=== PATIENT | female | born 1985 | race Caucasian/White ===

== ENCOUNTER 2019-12-25 02:58 | Inpatient (IN) | payer OTHER, SELFPAY ==
[2019-12-25] VITALS (157 sets, daily range): BP systolic 60–165; BP diastolic 37–143; PULSE 36–262; RESP 16–18; TEMP 36.3–37.6; O2SAT 94–100; BMI 40.3
[2019-12-25] MEDS: LACTATED RINGERS 1,000 ML 125 ML IV CONT ×3 (04:07→12:23)
[2019-12-25] MEDS: AMPICILLIN 2 GM/NS 100 ML 2 GM/100 ML BAG IVPB (04:08)
[2019-12-25] MEDS: OXYTOCIN 30 UNITS/NS 500 ML 30 UNITS/500 ML BAG IV CONT (04:12)
[2019-12-25 04:17] LABS: Basophils Percent Auto 0.3 % (0.2-1.2); Eosinophils Absolute Auto 0.1 K/mm3 (0-0.3); Hematocrit 34.1 % (37.0-47.0); Hemoglobin 11.6 g/dL (12.0-15.0); Immature Granulocyte Absolute 0.18 K/mm3 (0.00-0.031); Immature Granulocyte Percent A 1.6 % (0-0.5); Lymphocytes Absolute Auto 2.85 K/mm3 (0.9-3.2); Lymphocytes Percent Auto 24.6 % (18.3-44.2); Mean Corpuscular Hemoglobin 30.1 pg (26-34); Mean Corpuscular Volume 88.3 fl (80-100); Mean Platelet Volume 10.1 fl (7.4-10.4); Monocytes Absolute Auto 0.8 K/mm3 (0.1-0.6); Monocytes Percent Auto 6.6 % (2.6-8.5); Neutrophils Absolute Auto 7.7 K/mm3 (1.3-6.7); Neutrophils Percent Auto 65.9 % (45.5-73.1); Platelet Count Result 288 k/mm3 (150-375); Red Blood Count 3.86 M/mm3 (4.2-5.4); Red Cell Distribution Width 13.8 % (11.5-14.5); White Blood Count 11.6 K/mm3 (4.5-10.0)
[2019-12-25 04:27] LABS: Alanine Aminotransferase 13 U/L (4-35); Albumin Level 3.3 g/dL (3.5-5.1); Alkaline Phosphatase 130 U/L (38-126); Anion Gap 5 mmol/L (8-16); Aspartate Amino Transferase 19 U/L (14-36); Bilirubin,Total < 0.1 mg/dL (0.2-1.3); Blood Urea Nitrogen 7 mg/dL (7-17); Carbon Dioxide 22 mmol/L (22-30); Chloride 107 mmol/L (98-107); Estimated Glomerular Filt Rate > 60; Glucose 89 mg/dL (65-105); Potassium 4.2 mmol/L (3.4-5.0); Sodium 134 mmol/L (137-145)
[2019-12-25 05:13] LABS: Rubella IgG Antibody 35.3 IU/ML
[2019-12-25 05:14] LABS: HIV 1/2 Ab P24 Ag Result Negative (Negative)
[2019-12-25 05:16] LABS: Hepatitis B Surface Antigen Negative (Negative)
--- NOTE | 2019-12-25 05:59 | LDADM ---
This patient, Siri Nix, was admitted to Labor/Delivery/Recovery 104 on 12/25/19 at 03:21. Plans for labor, pain management and were discussed with patient. Patient/family oriented to hospital policies and general routines including ID bracelet, bed and alarms, visiting hours, pain management, procedures, bathroom and other care routines, personal items, smoking policy, room service/diet and guest tray routines, infant security routines, and visiting hours. Patient/Family are encouraged to report perceived risks to care and to ask questions if they do not understand what they are told or what they should do. See OBIX for further documentation.
--- NOTE | 2019-12-25 06:40 | WPDANESEPP ---
Anes - Eval Pre Procedure Procedure: Labor epidural Date/Time: 12/25/19 06:40 Surgeon: Riki Preop Diagnosis: Pain during labor Pre Op Diagnosis: Leaking, Bleeding Patient Data Age: 34 Gender: F Height: 1.57 m Weight: 100 kg Last Vital Signs Pulse 94 12/25/19 06:32 BP 117/90 12/25/19 06:32 Allergies Allergy/AdvReac Type Severity Reaction Status Date / Time Sulfa (Sulfonamide Allergy Unknown Verified 06/07/15 12:29 Antibiotics) Laboratory Tests 12/25/19 12/25/19 12/25/19 04:02 04:02 04:02 WBC 11.6 K/mm3 H K/mm3 (4.5-10.0) RBC 3.86 M/mm3 L M/mm3 (4.2-5.4) Hgb 11.6 g/dL L g/dL (12.0-15.0) Hct 34.1 % L % (37.0-47.0) MCV 88.3 fl fl (80-100) MCH 30.1 pg pg (26-34) MCHC 34.0 g/dl g/dl (32-36) RDW 13.8 % % (11.5-14.5) Plt Count 288 k/mm3 k/mm3 (150-375) MPV 10.1 fl fl (7.4-10.4) Immature Gran % (Auto) 1.6 % H % (0-0.5) Neut % (Auto) 65.9 % % (45.5-73.1) Lymph % (Auto) 24.6 % % (18.3-44.2) Pender % (Auto) 6.6 % % (2.6-8.5) Eos % (Auto) 1.0 % % (0-4.4) Baso % (Auto) 0.3 % % (0.2-1.2) Lymph # (Auto) 2.85 K/mm3 K/mm3 (0.9-3.2) Pender # (Auto) 0.8 K/mm3 H K/mm3 (0.1-0.6) Eos # (Auto) 0.1 K/mm3 K/mm3 (0-0.3) Baso # (Auto) 0.0 K/mm3 K/mm3 (0.0-0.1) Abs Immat Gran (auto) 0.18 K/mm3 H K/mm3 (0.00-0.031) Absolute Neuts (auto) 7.7 K/mm3 H K/mm3 (1.3-6.7) Absolute Nucleated RBC 0.0 K/mm3 K/mm3 (0.0-0.012) Nucleated RBC % 0.0 % % (0.0-0.2) Sodium Potassium Chloride Carbon Dioxide Anion Gap BUN Creatinine Estim Creat Clear Calc Estimated GFR Glucose Calcium Total Bilirubin AST ALT Alkaline Phosphatase Total Protein Albumin RPR Pending Hep Bs Antigen HIV 1&2 Ab/P24 Ag 4thGn Negative (Negative) Rubella IgG Antibody Blood Type Antibody Screen 12/25/19 12/25/19 12/25/19 04:02 04:02 04:02 WBC RBC Hgb Hct MCV MCH MCHC RDW Plt Count MPV Immature Gran % (Auto) Neut % (Auto) Lymph % (Auto) [place] % (Auto) Eos % (Auto) Baso % (Auto) Lymph # (Auto) [place] # (Auto) Eos # (Auto) Baso # (Auto) Abs Immat Gran (auto) Absolute Neuts (auto) Absolute Nucleated RBC Nucleated RBC % Sodium 134 mmol/L L mmol/L (137-145) Potassium 4.2 mmol/L mmol/L (3.4-5.0) Chloride 107 mmol/L mmol/L (98-107) Carbon Dioxide 22 mmol/L mmol/L (22-30) Anion Gap 5 mmol/L L mmol/L (8-16) BUN 7 mg/dL mg/dL (7-17) Creatinine 0.50 mg/dL L mg/dL (0.7-1.0) Estim Creat Clear Calc Not Reportable Estimated GFR > 60 (59 - ) Glucose 89 mg/dL mg/dL (65-105) Calcium 9.0 mg/dL mg/dL (8.4-10.2) Total Bilirubin < 0.1 mg/dL L mg/dL (0.2-1.3) AST 19 U/L U/L (14-36) ALT 13 U/L U/L (4-35) Alkaline Phosphatase 130 U/L H U/L (38-126) Total Protein 6.0 g/dL L g/dL (6.3-8.2) Albumin 3.3 g/dL L g/dL (3.5-5.1) RPR Hep Bs Antigen HIV 1&2 Ab/P24 Ag 4thGn Rubella IgG Antibody 35.3 IU/ML IU/ML (10 - ) Blood Type O Positive Antibody Screen Negative 12/25/19 04:02
[2019-12-25] MEDS: fentaNYL CITRATE INJ (*CRX) 100 MCG/2 ML VIAL 50 MCG IV PUSH (07:13)
--- NOTE | 2019-12-25 07:34 | PM.OBPNVD ---
OB - PN: Subj Subjective Date/time seen: 12/25/19 07:34 Sciatica bothering her. US done- vertex. s/p BMTZ. COntinue PCN and Pitocin. OB - PN: Obj Data Labs CBC & Chem 7: 12/25/19 04:02 12/25/19 04:02 Labs: Laboratory Results - last 24 hr 12/25/19 12/25/19 12/25/19 04:02 04:02 04:02 WBC 11.6 H RBC 3.86 L Hgb 11.6 L Hct 34.1 L MCV 88.3 MCH 30.1 MCHC 34.0 RDW 13.8 Plt Count 288 MPV 10.1 Immature Gran % (Auto) 1.6 H Neut % (Auto) 65.9 Lymph % (Auto) 24.6 [place] % (Auto) 6.6 Eos % (Auto) 1.0 Baso % (Auto) 0.3 Lymph # (Auto) 2.85 [place] # (Auto) 0.8 H Eos # (Auto) 0.1 Baso # (Auto) 0.0 Abs Immat Gran (auto) 0.18 H Absolute Neuts (auto) 7.7 H Absolute Nucleated RBC 0.0 Nucleated RBC % 0.0 Sodium Potassium Chloride Carbon Dioxide Anion Gap BUN Creatinine Estim Creat Clear Calc Estimated GFR Glucose Calcium Total Bilirubin AST ALT Alkaline Phosphatase Total Protein Albumin Hep Bs Antigen HIV 1&2 Ab/P24 Ag 4thGn Negative Rubella IgG Antibody 35.3 Blood Type Antibody Screen 12/25/19 12/25/19 12/25/19 04:02 04:02 04:02 WBC RBC Hgb Hct MCV MCH MCHC RDW Plt Count MPV Immature Gran % (Auto) Neut % (Auto) Lymph % (Auto) [place] % (Auto) Eos % (Auto) Baso % (Auto) Lymph # (Auto) [place] # (Auto) Eos # (Auto) Baso # (Auto) Abs Immat Gran (auto) Absolute Neuts (auto) Absolute Nucleated RBC Nucleated RBC % Sodium 134 L Potassium 4.2 Chloride 107 Carbon Dioxide 22 Anion Gap 5 L BUN 7 Creatinine 0.50 L Estim Creat Clear Calc Not Reportable Estimated GFR > 60 Glucose 89 Calcium 9.0 Total Bilirubin < 0.1 L AST 19 ALT 13 Alkaline Phosphatase 130 H Total Protein 6.0 L Albumin 3.3 L Hep Bs Antigen Negative HIV 1&2 Ab/P24 Ag 4thGn Rubella IgG Antibody Blood Type O Positive Antibody Screen Negative
[2019-12-25] MEDS: AMPICILLIN 1 GM/NS 50 ML 1 GM/50 ML BAG IVPB ×2 (08:24→12:19)
[2019-12-25] MEDS: PHENYLEPHRINE 1,000 MCG/10 ML SYRINGE 100 MCG IV PUSH ×3 (08:31→09:46)
[2019-12-25] MEDS: BETAMETHASONE SOD PHOS/ACETATE 30 MG/5 ML VIAL 12 MG IM (08:57)
[2019-12-25 12:29] LABS: Rapid Plasma Reagin Non-Reactive (NonReactive)
--- NOTE | 2019-12-25 16:05 | PM.OBPRVD ---
OB - Delivery Note Procedure Delivery date: 12/25/19 events: Labor < 37 Weeks Intrapartal events: None Delivery augmentation: pitocin Delivery monitor: external FHT and external uterine Route of delivery: Episiotomy description: None Laceration Description: Perineal - 1st Degree Delivery repair: vicryl Estimated blood loss (mL): 134 Anesthesia type: Epidural Baby Date of : 12/25/19 Time of : 15:38 Weeks of gestation at delivery: 35 Weight (pounds): 5 Weight (ounces): 13 position: Right Occiput Posterior Placenta delivery description: Spontaneous cord vessel description: Delayed Cord Clamping Narrative: Delivery per Z. Due SNM. Unable to collect arterial. Venous gas collected and handed off to staff.
[2019-12-25] MEDS: OXYTOCIN 30 UNITS/NS 500 ML 30 UNITS/500 ML BAG 125 UNITS IV CONT (16:16)
[2019-12-25] MEDS: POLYSACCHARIDE IRON COMPLEX 150 MG CAPSULE PO (17:46)
[2019-12-25] MEDS: BENZOCAINE 20% AER SPR (*SP) 56 GM CAN 1 SPRAY TOPICAL (18:23)
[2019-12-25] MEDS: WITCH HAZEL 40 PADS 1 PAD TOPICAL (18:23)
[2019-12-25] MEDS: IBUPROFEN 600 MG TABLET PO (18:23)
[2019-12-26] MEDS: IBUPROFEN 600 MG TABLET PO ×3 (02:50→19:10)
[2019-12-26 05:15] LABS: Hemoglobin 10.5 g/dL (12.0-15.0)
[2019-12-26 08:15] VITALS: BP 114/73; PULSE 73; RESP 18; TEMP 37.1; O2SAT 100
--- NOTE | 2019-12-26 09:17 | PM.OBPNVD ---
OB - PN: Subj Subjective Date/time seen: 12/26/19 09:17 Interval history: Doing very well. going well. Normal lochia, minimal pain. Patient comments: no complaints [place] baby status: doing well and nursing well [place] feeding status: exclusively breast feeding OB - PN: Obj Data Labs CBC & Chem 7: 12/26/19 03:59 12/25/19 04:02 Labs: Laboratory Results - last 24 hr 12/25/19 12/26/19 04:02 03:59 Hgb 10.5 L Hct 31.0 L RPR Non-reactive OB - PN A/P Plan day: 1 Plan: routine care Comments: Circ done after consented. Home tomorrow. Routine pp care. Time Spent With Patient Time: Total time spent is greater than 50% in coordination of care (as documented) at patient's floor/unit and/or counseling patient: Exam Narrative: Exam Narrative: NAD abdomen soft, nontender, fundus firm below the umbilicus Extremities nontender, 1+ edema
[2019-12-26] MEDS: MULTIVIT/MIN/PREN/FOL AC/IRON TABLET 1 TAB PO (09:37)
[2019-12-26] MEDS: DOCUSATE SODIUM 100 MG CAPSULE PO (09:39)
--- NOTE | 2019-12-26 13:15 | PC.NURSE ---
Consulted with patient, mother states she is using a nipple shield for all feedings. Mother has pumped and supplemented after all attempts. Discussed and the 35 2/7 week , establishing may have its own unique set of circumstances due to their immaturity. infants may be less alert, have less stamina and may have issues with latch, suck and swallow. With the possible inability to have a vigorous suck swallow, infants may not be adequately stimulating mother and/or able to have adequate milk transfer. Pumping should be considered for additional stimulation and to offer EBM as part of supplement if needed. Discussed nipple shield precautions and possible complications. Instructions given on application and cleaning of shield. Patient able to return demonstration on proper application of shield. Discussed the need to initiate pumping if infant continues to nurse with the shield. Patient verbalizes understanding. Reviewed feeding cues, frequencies, duration of feedings, feeding elimination flow sheet, and signs of adequate intake. Demonstrated stimulation techniques to wake infant for feeding. Assisted with infant to breast. Reviewed positioning/alignment in cross cradle, holding breast in U hold and guided asymmetrical latch on. Infant was able to latch correctly using shield. nursed weakly in short chewy bursts followed with long pausing. Reviewed signs of a correct latch, effective nursing and suck swallow ratio. Infant was able to maintain latch without discomfort to mother. Nipple care reviewed. Advised to attempt for 5-10 minutes then supplement 15mls EBM/formula and pump. Discussed not tiring infant out before bottle feeding. Instructed mother to call out for RN assistance if she is unable to latch for feeding or she has discomfort with nursing. Instructed feeding should be initiated three hours from start of last feeding or if feeding cues are noted before. Mother voiced understanding of information shared.
--- NOTE | 2019-12-26 13:45 | PC.NURSE ---
Assisted with pumping. Instructions given on breast pump care and usage, pumping schedule, nipple care, and collection and storage of breast milk. Encouraged [id number], breast massage and manual expression to stimulate supply. Assessed patient for correct flange size, placement and draw. Patient verbalizes and demonstrates understanding of instructions.
--- NOTE | 2019-12-26 13:48 | WPDANLDPN2 ---
Anes-Prog Note L&D Date/Time: 12/26/19 13:48 Comfortable throughout: labor and delivery Neuraxial method: epidural Epidural/Spinal procedure site: clean & non-tender Neuro status: Neuro function grossly intact. Cardiovascular status: normal Respiratory status: normal Airway patency: baseline Mental status: baseline Post-Op hydration status: normal Vital Signs: Last Vital Signs Temp 37.1 C 12/26/19 08:15 Pulse 73 12/26/19 08:15 Resp 18 12/26/19 08:15 BP 114/73 12/26/19 08:15 Pulse Ox 100 12/26/19 08:15 Pain score (VAS): 02/17 I/O: Intake & Output 12/25/19 12/26/19 12/26/19 23:59 07:59 15:59 Intake Total 600 Output Total 689 Balance -89 Post-procedural complaints: none Patient feedback: Patient satisfied with anesthetic care.
[2019-12-26 20:00] VITALS: BP 106/71; PULSE 85; RESP 18; TEMP 36.5; O2SAT 98
[2019-12-26] MEDS: ACETAMINOPHEN 325 MG TABLET 650 MG PO (22:59)
[2019-12-27] MEDS: IBUPROFEN 600 MG TABLET PO (05:46)
--- NOTE | 2019-12-27 07:30 | PC.NURSE ---
PT introductions made and plan of care discussed per post , pain management, breast feeding, supplementing and pumping, daily care activities and pending discharge to home. PT verbalized understanding of such care.
--- NOTE | 2019-12-27 08:18 | P.DS_ITS ---
DS: Admitting Diagnosis Admitting Diagnosis Admitting Diagnosis: Leaking, Bleeding DS: Discharge Diagnosis Discharge Diagnosis (1) Vaginal delivery: Code(s): O80 - Encounter for full-term uncomplicated delivery Status: Acute OB - DS: Summary OB Procedures : None OB Procedures Intrapartum: Spontaneous Vag Delivery OB Procedures: : None Time Spent with Patient Time attestation: Total time spent providing and/or coordinating discharge services: DS: Data Data Completed and Pending Pending studies at discharge: Pending at discharge 12/25/19 16:28 Surgical [PTH] Routine Discharge Plan Discharge Discharging Clinician: Shanti Rivera Patient Disposition: Home, Self-Care Activity: pelvic rest Diet: as tolerated Patient Instructions: Antibiotic Form, How to Stop Smoking (DC) Stand Alone Forms: General Discharge Information Follow-up/Referrals: Shanti Rivera CNM [Certified Nurse Record Label Intern] - Date of admission: 12/25/19 03:21 Primary Care Provider: Alex Vaca Admitting Provider: Sal[place] Lyn Attending physician on admission: [place] Lyn Condition: Stable
--- NOTE | 2019-12-27 08:18 | PM.OBPNVD ---
OB - PN: Subj Subjective Date/time seen: 12/27/19 08:18 Interval history: Doing very well. going well. Normal lochia, minimal pain. Patient comments: no complaints [place] baby status: doing well OB - PN: Obj Data Labs CBC & Chem 7: 12/26/19 03:59 12/25/19 04:02 OB - PN A/P Plan day: 2 Plan: routine care and discharge home (F/U in 4 weeks) Time Spent With Patient Time: Total time spent is greater than 50% in coordination of care (as documented) at patient's floor/unit and/or counseling patient: Time with patient: less than 15 minutes Review of Systems Review of Systems: All systems reviewed & are unremarkable except as noted in HPI and below Exam Narrative: Exam Narrative: Fundus firm and vaginal flow controlled. No lower ext redness, warmth, or edema. Negative homans. Const: General: comfortable Chest: Breast/axilla inspection: normal inspection of the breasts Resp: Effort & Inspection: normal respiratory effort Cardio: Rate: regular rate GI: GI Palp: Yes Soft to palpation Psych: Appearance: grossly normal Affect: normal affect Attitude: cooperative Thought content: Yes Normal thought content present Judgement: Good judgement present (Psych)
[2019-12-27 09:00] VITALS: BP 115/66; PULSE 80; RESP 16; TEMP 37.6; O2SAT 98
--- NOTE | 2019-12-27 09:15 | PC.NURSE ---
Mother continues to attempt to breast most feedings using the nipple shield before supplementing and pumping. Infant is more awake and making eager attempts with latching with good bursts of rhythmic suckling. Mother is feeding as required and waking to feed if needed. is currently meeting outcomes for weight, output, jaundice and feeding frequencies. Mother is pumping without difficulties or discomfort and has a double electric pump for home use. Mother states she feels confident to continue current feeding plan at home. Reviewed transition to breast milk, signs of adequate intake, and engorgement/relief. Discussed when to increase supplementation and signs when may be ready to decrease supplementation. Advised not to discontinue supplement until feeding can be observed by ICP or LC. Instructed to call ICP if intake/output less than required. Reviewed regular medications mother is taking. Information provided per Aliya. Reviewed community resources on the [facility] website and in the Mom/Baby guide. Information on outpatient services provided. Mother has no further questions at this time.
--- NOTE | 2019-12-27 10:03 | WPDANLDPN2 ---
Anes-Prog Note L&D Date/Time: 12/27/19 10:03 Comfortable throughout: labor and delivery Neuraxial method: epidural Epidural/Spinal procedure site: clean & non-tender Neuro status: Neuro function grossly intact. Cardiovascular status: normal Respiratory status: normal Airway patency: baseline Mental status: baseline Post-Op hydration status: normal Vital Signs: Last Vital Signs Temp 37.6 C H 12/27/19 09:00 Pulse 80 12/27/19 09:00 Resp 16 12/27/19 09:00 BP 115/66 12/27/19 09:00 Pulse Ox 98 12/27/19 09:00 Pain score (VAS): 0 Post-procedural complaints: none Patient feedback: Patient satisfied with anesthetic care.
[2019-12-27 10:25] VITALS: PULSE 80; RESP 16; O2SAT 98
[2019-12-27] MEDS: DOCUSATE SODIUM 100 MG CAPSULE PO (10:25)
[2019-12-27] MEDS: MULTIVIT/MIN/PREN/FOL AC/IRON TABLET 1 TAB PO (10:25)
[2019-12-27] MEDS: ACETAMINOPHEN 325 MG TABLET 650 MG PO (10:25)
[2019-12-27] MEDS: TETANUS,DIPHTHERIA,AC PERTUSSIS ADULT (0.5 ML) BOOSTRIX IM (10:28)
--- NOTE | 2019-12-27 12:30 | PC.NURSE ---
Patient viewed the discharge video Mother & Baby Care, The First Two Weeks . Patient was given the opportunity and encouraged to ask questions. Patient verbalized understanding of information shared and has been given the mother/baby guide for home reference.
--- NOTE | 2019-12-27 13:30 | PC.NURSE ---
PT received discharge instructions per protocol and verbalized understanding of such care.
--- NOTE | 2019-12-27 14:52 | PC.NURSE ---
Addendum entered by Janak Ornelas RN 12/27/19 14:53: actual time of discharge was 1403 Original Note: PT discharged to home via wheelchair accompanied by mother and and taken to waiting car. follow up appointments confirmed.
[2019-12-29 11:06] VITALS: BP 129/83; PULSE 72; RESP 20; TEMP 36.8; O2SAT 100
== END 2019-12-27 14:03 | disposition home or self-care (01) | DRG 807 ==
LOC: ANHOBPP 03:03 → ANHLDR 03:21 → ANHOB2 12-27 08:19 → ANHLDR 12-28 17:13 → ANHOB2 12-28 17:13
PROVIDERS: Advanced Practice Midwife; Admitting Provider Obstetrics & Gynecology; PCP Family Medicine; Visit Provider Obstetrics & Gynecology
DX: O60.14X0 Preterm labor third trimester with preterm delivery third trimester, not applicable or unspecified (principal); Z37.0 Single live birth; O99.824 Streptococcus B carrier state complicating childbirth; O42.913 Preterm premature rupture of membranes, unspecified as to length of time between rupture and onset of labor, third trimester; O76 Abnormality in fetal heart rate and rhythm complicating labor and delivery; O70.0 First degree perineal laceration during delivery; Z3A.35 35 weeks gestation of pregnancy; M54.30 Sciatica, unspecified side; Z23 Encounter for immunization
CPT/HCPCS: 36415; 80053; 85014; 85018; 85025; 86592; 86703; 86762; 86850; 86900; 86901; 87340; 88307; 90715; A9270; G0432; J0290; J0702; J2370; J2590; J2795; J3010; J7120

== ENCOUNTER 2019-12-28 09:31 | Outpatient (CLI) | payer OTHER, SELFPAY | END 2019-12-28 09:32 | disposition home or self-care (01) | PROVIDERS: PCP Family Medicine; Visit Provider Obstetrics & Gynecology | DX: Z23 Encounter for immunization (principal) | CPT/HCPCS: 90471; 90653; G0008 ==

== ENCOUNTER 2022-02-07 21:38 | Observation (INO) | payer OTHER, SELFPAY ==
--- NOTE | ~2022-02-07 | US_ITS ---
EXAMINATION: US OB <=14 wk fetus w TV DATE: 02/07/2022 23:07 INDICATION: Left lower quadrant abdominal pain. TECHNIQUE: Real-time transabdominal and transvaginal pelvic ultrasound was performed. COMPARISON: None. FINDINGS: TRANSABDOMINAL ULTRASOUND: The uterus measures 9.8 x 7.0 x 6.3 cm. TRANSVAGINAL ULTRASOUND: There is an intrauterine gestational sac. A yolk sac is identified. The fet al crown rump length measures 1.7 cm, which correlates with an estimated gestational age of 8 weeks a nd 1 day(s) (+/-) 5 day(s). heart motion is identified measuring 173 beats per minute (bpm) by M-mode Doppler. The cervical length is normal on transvaginal images. The right ovary measures 3.3 x 3.7 x 2.1 cm. The left ovary is not visualized. There is physiologic free fluid in the pelvis. IMPRESSION: 1. Single living intrauterine gestation with estimated date of delivery of 09/18/2022. Reviewed, dictated and finalized at location A. EY WORKER IMPRESSION: 1. Single living intrauterine gestation with estimated date of delivery of 09/08.
[2022-02-07 21:46] VITALS: BP 130/87; PULSE 105; RESP 18; TEMP 36.6; O2SAT 100
--- NOTE | 2022-02-07 21:57 | ED.ABDPAIN ---
HPI - Abdominal Pain General Chief Complaint: Abdominal Pain Stated Complaint: abdominal pain left lower for 24 hours Time Seen by Provider: 02/07/22 21:54 Source: RN notes reviewed History of Present Illness HPI narrative: Patient presents emergency room from home for abdominal pain. Patient states pain began approximately 24 hours ago the pain is located left lower quadrant does not radiate states the pain is described as sharp and stabbing is progressively worsened over the past 24 hours. States that movement makes the pain worse and sitting still improves the pain states she is approximately 8 weeks has had a home test but is not been seen by [facility] she is followed by [facility]. Patient is she denies any vaginal bleeding or discharge states she did try taking 1 ibuprofen at home with minimal relief she has not taken any Tylenol Related Data Allergies Allergy/AdvReac Type Severity Reaction Status Date / Time Sulfa (Sulfonamide Allergy Unknown Unknown Verified 02/07/22 21:51 Antibiotics) Review of Systems Review of Systems: Gen.: Denies fevers or chills ENT: Denies congestion Respiratory: Denies shortness of breath or cough CV: Denies chest pain or palpitations GI: Reports left lower quadrant abdominal pain, denies nausea, emesis or diarrhea reports Musculoskeletal: Denies back pain or muscle pain Neuro: Denies numbness, tingling, weakness or focal weakness Skin: Denies rash Except as documented, all other systems reviewed and negative [facility] Past Medical History Medical History IUP (intrauterine ), incidental Morbid obesity with BMI of 40.0-44.9, adult Family History Family History (Updated 10/05/13 @ 07:13 by DOCTOR UNKNOWN) Grandparent Carcinoma of colon Social History Social History Smoking packs per day: 0.5 Smoking cigarettes per day: 10.0 Years smoked: 16 Smoking pack-years: 8.00 Smoking status: Current every day smoker Tobacco type: cigarettes Second hand tobacco smoke exposure: No Alcohol intake: current Substance use: never Gender identity (if verbalized by the patient): Female Sexual Orientation (if Verbalized by the Patient): Straight or Heterosexual Spiritual care concerns: No Exam Narrative: APPEARANCE: No acute distress, nontoxic, resting in bed HEENT: Normocephalic, atraumatic, OMM RESPIRATORY: No respiratory distress, clear to auscultation bilaterally with no rhonchi wheezing or rales CARDIOVASCULAR: RRR s murmur ABDOMINAL: Soft nondistended, tender to palpation left lower quadrant with point tenderness and percussion tenderness of the left lower quadrant, no tenderness in the right lower quadrant, left upper quadrant and right upper quadrant : Normal external exam small amount of white discharge in cervical canal cervix is closed no vaginal bleeding no adnexal tenderness no cervical motion tenderness MUSCULOSKELETAl: Moves all extremities. No clubbing, cyanosis or edema. NEURO: Awake and alert. Following commands, speech normal, no focal deficits SKIN:: Warm, dry. Normal Color PSYCHIATRIC: Normal affect/mood Course Course Emergency Course: Reviewed old records patient is O+ blood Patient continues have tenderness in the left lower quadrant Called and discussed with Dr. Lyn presentation work-up agrees with admission at this time agrees with plan for Rocephin serial exams Discussed with patient and family results of workup and diagnosis. Discussed need for admission. Patient and family understand and agree to current treatment plan Vital Signs Vital signs: Vital Signs Temperature 97.9 F 02/07/22 21:46 Pulse Rate 105 H 02/07/22 21:46 Respiratory Rate 18 02/07/22 21:46 Blood Pressure 130/87 02/07/22 21:46 Pulse Oximetry 100 02/07/22 21:46 Oxygen Delivery Room Air 02/07
[2022-02-07 22:11] LABS: Basophils Percent Auto 0.2 % (0.2-1.2); Eosinophils Absolute Auto 0.1 K/mm3 (0-0.3); Hematocrit 38.5 % (37.0-47.0); Hemoglobin 13.2 g/dL (12.0-15.0); Immature Granulocyte Absolute 0.06 K/mm3 (0.00-0.031); Immature Granulocyte Percent A 0.4 % (0-0.5); Lymphocytes Absolute Auto 2.43 K/mm3 (0.9-3.2); Lymphocytes Percent Auto 17.8 % (18.3-44.2); Mean Corpuscular HGB Conc 34.3 g/dl (32-36); Mean Corpuscular Hemoglobin 32.3 pg (26-34); Mean Corpuscular Volume 94.1 fl (80-100); Mean Platelet Volume 10.3 fl (7.4-10.4); Monocytes Absolute Auto 0.9 K/mm3 (0.1-0.6); Monocytes Percent Auto 6.9 % (2.6-8.5); Neutrophils Absolute Auto 10.1 K/mm3 (1.3-6.7); Neutrophils Percent Auto 73.7 % (45.5-73.1); Platelet Count Result 302 k/mm3 (150-375); Red Blood Count 4.09 M/mm3 (4.2-5.4); Red Cell Distribution Width 12.4 % (11.5-14.5); White Blood Count 13.7 K/mm3 (4.5-10.0)
[2022-02-07] MEDS: SODIUM CHLORIDE 0.9% IV 1,000 ML 999 ML IV CONT (22:16)
[2022-02-07 22:23] LABS: Alanine Aminotransferase 21 U/L (6-35); Albumin Level 4.2 g/dL (3.5-5.1); Alkaline Phosphatase 86 U/L (38-126); Anion Gap 7 mmol/L (8-16); Aspartate Amino Transferase 23 U/L (14-36); Bilirubin,Total 0.2 mg/dL (0.2-1.3); Blood Urea Nitrogen 9 mg/dL (7-17); Calcium 8.8 mg/dL (8.4-10.2); Carbon Dioxide 20 mmol/L (22-30); Chloride 104 mmol/L (98-107); Estimated CRCL calculation 118 ml/min; Estimated Glomerular Filt Rate > 60; Glucose 92 mg/dL (65-110); Lipase 52 U/L (23-300); Potassium 3.8 mmol/L (3.4-5.0); Sodium 131 mmol/L (137-145)
[2022-02-07 22:24] LABS: Add Urine Microscopic? YES; Appearance Urine Slightly Cloudy (Clear); Bilirubin Urine Negative (Negative); Blood Urine Negative (Negative); Color Urine Yellow (Yellow); Glucose Urine UA Negative (Negative); Ketones Urine Negative (Negative); Leukocyte Esterase Ur Trace LEU/UL (Negative); Nitrate Urine Negative (Negative); Protein Urine Negative (Negative); Urobilinogen Urine 0.2 mg/dL (<2.0)
[2022-02-07 22:27] LABS: Bacteria Urine Trace /hpf; Mucus Urine Rare /lpf; RBC Urine 0-2 /hpf (0-2); Squamous Epithelial Cell Urine Few /hpf (Few); WBC Urine 16-20 /hpf
[2022-02-08 02:11] VITALS: BMI 35.7
--- NOTE | 2022-02-08 02:48 | ADMGEN ---
This patient, Siri Nix, was admitted to Medical Room 252-. Patient/family oriented to hospital policies and general routines including ID bracelet, bed and alarms, visiting hours, pain management, procedures, bathroom and other care routines, personal items, smoking policy, room service/diet, and visiting hours. Information on how to activate the Rapid Response Team has been discussed. Patient/Family are encouraged to report perceived risks to care and to ask questions if they do not understand what they are told or what they should do.
[2022-02-08 02:53] LABS: Influenza A QL RT-PCR Negative (Negative); Influenza B QL RT-PCR Negative (Negative); SARS-CoV-2 RNA PCR Negative
[2022-02-08] MEDS: SODIUM CHLORIDE 0.9% IV 1,000 ML 100 ML IV CONT (03:20)
[2022-02-08] MEDS: ACETAMINOPHEN 325 MG TABLET 650 MG PO ×2 (03:52→09:56)
[2022-02-08 05:00] VITALS: BP 136/83; PULSE 74; RESP 20; TEMP 36.3; O2SAT 99
[2022-02-08 05:59] LABS: Lactic Acid Reflex 0.7 mmol/L (0.7-2.0)
--- NOTE | 2022-02-08 11:55 | PM.IMHP ---
H&P: HPI History of Present Illness Date/Time: 02/08/22 11:55 Chief Complaint: Abdominal pain Narrative: this patient is a 36-year-old multiparous female at 8 weeks gestation who presented emergency department for left lower quadrant pain. She has elevated white count. There was some nausea. Evaluation in the ultrasound included a pelvic ultrasound. The left ovary could not be visualized. patient was admitted for observation. After several hours of observation she felt better. Her pain is primarily with movement and a rotational movement mostly. A rotational movement of her abdomen is the most painful periods likely muscular. There was concern about appendicitis. She had some soft signs of infection. She had the urinary tract infection that has been treated with IV antibiotics. Will continue to treat the infection with Oral antibiotics. to discharge To home Review of Systems Review of Systems: All systems reviewed & are unremarkable except as noted in HPI and below Constitutional: Constitutional: Denies chills, Denies fatigue, Denies fever(s) and Denies weakness Eyes: Eyes: Denies blurry vision, Denies change in vision, Denies loss of peripheral vision, Denies loss of vision, Denies other visual disturbances and Denies eye pain ENT: Denies vertigo, Denies dizziness, Denies hearing loss, Denies mouth pain, Denies nasal obstruction, Denies neck mass and Denies neck pain Cardiovascular: Cardiovascular: Denies chest pain, Denies diaphoresis, Denies syncope, Denies leg edema and Denies dyspnea Respiratory: Respiratory: Denies chest congestion, Denies cough, Denies hemoptysis, Denies dyspnea and Denies wheezing Gastrointestinal: Gastrointestinal: Denies abdominal pain, Denies constipation, Denies diarrhea, Denies nausea and Denies vomiting Genitourinary: Genitourinary: Denies hematuria, Denies change in libido, Denies nocturia, Denies genital lesions, Denies flank pain and Denies urinary urgency Musculoskeletal: Musculoskeletal: Denies abnormal gait, Denies back pain, Denies myalgias, Denies arthralgias, Denies joint swelling, Denies muscle weakness and Denies neck pain Integumentary/Breasts: Skin/Breast: Denies swelling, Denies breast pain, Denies breast mass, Denies dry skin, Denies nipple discharge, Denies unusual bruising and Denies jaundice Neurologic: Denies Neuro-related abnormal movements, Denies Abnormal speech present, Denies abnormal gait, Denies behavioral changes, Denies confusion, Denies vertigo, Denies dizziness, Denies syncope, Denies loss of vision, Denies memory loss, Denies convulsions and Denies weakness Psychiatric: Psychiatric: Denies abnormal sleep pattern, Denies behavioral changes, Denies change in libido, Denies confusion, Denies depression, Denies anhedonia and Denies memory loss Endocrine: Endocrine: Reports no additional endocrine complaints, Denies change in libido and Denies fatigue Hematologic/Lymphatic: Hematologic/Lymphatic: Reports no additional hematologic/lymphatic complaints Allergic/Immunologic: Allergic/Immunologic: Reports no additional allergic/immunologic complaints and Denies wheezing PMFSH Past Medical History Medical History IUP (intrauterine ), incidental Morbid obesity with BMI of 40.0-44.9, adult Family History Family History (Updated 10/05/13 @ 07:13 by DOCTOR UNKNOWN) Grandparent Carcinoma of colon Social History Social History Smoking packs per day: 0.5 Smoking cigarettes per day: 10.0 Years smoked: 18 Smoking pack-years: 9.00 Smoking status: Heavy tobacco smoker Tobacco type: cigarettes Second hand tobacco smoke exposure: No Alcohol intake: current Drinks per week: 24 Substance use: never Lack of Transportation: No Lack of Food: Never True Current Housing: I Have Housing Concerned About Future Housing: No Difficulty
--- NOTE | 2022-02-25 20:41 | PM.OBTRLD ---
OB - Triage/Final Diagnosis Visit Information Comments/Additional reasons for admission: I have assessed the risk for this patient, Siri Nix, and determined that she would benefit from observation care. Evaluation Laboratory results: Laboratory Tests 02/07/22 02/07/22 02/07/22 22:03 22:03 22:03 WBC RBC Hgb Hct MCV MCH MCHC RDW Plt Count MPV Immature Gran % (Auto) Neut % (Auto) Lymph % (Auto) Nash % (Auto) Eos % (Auto) Baso % (Auto) Lymph # (Auto) Nash # (Auto) Eos # (Auto) Baso # (Auto) Abs Immat Gran (auto) Absolute Neuts (auto) Absolute Nucleated RBC Nucleated RBC % Sodium 131 L Potassium 3.8 Chloride 104 Carbon Dioxide 20 L Anion Gap 7 L BUN 9 Creatinine 0.60 L Estim Creat Clear Calc 118 Estimated GFR > 60 Glucose 92 Lactic Acid Calcium 8.8 Total Bilirubin 0.2 AST 23 ALT 21 Alkaline Phosphatase 86 Total Protein 8.0 Albumin 4.2 Lipase 52 Beta HCG, Quant 63802.00 Urine Color Yellow Urine Appearance Slightly cloudy Urine pH 6.0 Ur Specific [place] 1.010 Urine Protein Negative Urine Glucose (UA) Negative Urine Ketones Negative Ur Blood (Man) Negative Urine Nitrate Negative Urine Bilirubin Negative Urine Urobilinogen 0.2 Leukocyte Esterase Rfl Trace H Urine RBC 0-2 Urine WBC 16-20 H Ur Squamous Epith Cells Few Urine Bacteria Trace Urine Mucus Rare C.trachomatis RNA (TMA) Influenza A (RT-PCR) Influenza B (RT-PCR) N.gonorrhoeae RNA (TMA) SARS-CoV-2 RNA (RT-PCR) Trichomonas Direct ID 02/07/22 02/08/22 02/08/22 22:04 01:08 01:08 WBC 13.7 H RBC 4.09 L Hgb 13.2 Hct 38.5 MCV 94.1 MCH 32.3 MCHC 34.3 RDW 12.4 Plt Count 302 MPV 10.3 Immature Gran % (Auto) 0.4 Neut % (Auto) 73.7 H Lymph % (Auto) 17.8 L Nash % (Auto) 6.9 Eos % (Auto) 1.0 Baso % (Auto) 0.2 Lymph # (Auto) 2.43 Nash # (Auto) 0.9 H Eos # (Auto) 0.1 Baso # (Auto) 0.0 Abs Immat Gran (auto) 0.06 H Absolute Neuts (auto) 10.1 H Absolute Nucleated RBC 0.0 Nucleated RBC % 0.0 Sodium Potassium Chloride Carbon Dioxide Anion Gap BUN Creatinine Estim Creat Clear Calc Estimated GFR Glucose Lactic Acid Calcium Total Bilirubin AST ALT Alkaline Phosphatase Total Protein Albumin Lipase Beta HCG, Quant Urine Color Urine Appearance Urine pH Ur Specific [place] Urine Protein Urine Glucose (UA) Urine Ketones Ur Blood (Man) Urine Nitrate Urine Bilirubin Urine Urobilinogen Leukocyte Esterase Rfl Urine RBC Urine WBC Ur Squamous Epith Cells Urine Bacteria Urine Mucus C.trachomatis RNA (TMA) Not detected Influenza A (RT-PCR) Influenza B (RT-PCR) N.gonorrhoeae RNA (TMA) Not detected SARS-CoV-2 RNA (RT-PCR) Trichomonas Direct ID Negative 02/08/22 02/08/22 01:52 05:27 WBC RBC Hgb Hct MCV MCH MCHC RDW Plt Count MPV Immature Gran % (Auto) Neut % (Auto) Lymph % (Auto) Nash % (Auto) Eos % (Auto) Baso % (Auto) Lymph # (Auto) Nash # (Auto) Eos # (Auto) Baso # (Auto) Abs Immat Gran (auto) Absolute Neuts (auto) Absolute Nucleated RBC Nucleated RBC % Sodium Potassium Chloride Carbon Dioxide Anion Gap BUN Creatinine Estim Creat Clear Calc Estimated GFR Glucose Lactic Acid 0.7 Calcium Total Bilirubin AST ALT Alkaline Phosphatase Total Protein Albumin Lipase Beta HCG, Quant Urine Color Urine Appearance Urine pH Ur Specific [place] Urine Protein Urine Glucose (UA) Urine Ketones Ur Blood (Man) Urine Nitrate Urine Bilirubin Urine Urobilinogen Leukocyte Esterase Rfl Urine RBC Urine WBC
== END 2022-02-08 13:50 | disposition home or self-care (01) ==
LOC: ANHED 22:15 → ANH2MED 02-08 01:47
PROVIDERS: Admitting Provider Obstetrics & Gynecology; Emergency Provider Emergency Medicine; PCP Family Medicine; Visit Provider Obstetrics & Gynecology
DX: R10.32 Left lower quadrant pain (principal); Z33.1 Pregnant state, incidental; N39.0 Urinary tract infection, site not specified; B37.9 Candidiasis, unspecified; R00.0 Tachycardia, unspecified; D72.829 Elevated white blood cell count, unspecified; Z20.822 Contact with and (suspected) exposure to COVID-19; E66.01 Morbid (severe) obesity due to excess calories; Z68.35 Body mass index [BMI] 35.0-35.9, adult; F17.210 Nicotine dependence, cigarettes, uncomplicated; F10.90 Alcohol use, unspecified, uncomplicated
CPT/HCPCS: 36415; 76801; 76817; 80053; 81001; 81025; 83605; 83690; 84702; 85025; 87040; 87070; 87086; 87088; 87491; 87591; 87636; 87808; 96365; 96366; 96367; 99285; A9270; G0378; J0131; J0696; J7030

== ENCOUNTER 2023-10-25 11:04 | Emergency (ER) | payer OTHER, SELFPAY ==
[2023-10-25 11:27] VITALS: BP 139/93; PULSE 74; RESP 18; TEMP 36.4; O2SAT 100
--- NOTE | 2023-10-25 11:30 | ED.URI ---
HPI - URI/Sore Throat General Chief Complaint: Upper Respiratory Infection Stated Complaint: sinus infection Time Seen by Provider: 10/25/23 11:31 Source: patient, RN notes reviewed and old records reviewed Mode of arrival: ambulatory Limitations: no limitations History of Present Illness HPI Narrative: patient complaints of 2 weeks of sinus pain and congestion, postnasal drip, cough. She reports that she thought she was feeling better a few days ago, but then suddenly started feeling worse. She reports body aches, fatigue. She denies any fever or sweats. Does report some occasional chills. She has been taking DayQuil, states that onset of symptoms this was working well, but no longer is. Related Data Allergies Allergy/AdvReac Type Severity Reaction Status Date / Time Sulfa (Sulfonamide AdvReac Mild Rash Verified 10/25/23 11:23 Antibiotics) Review of Systems Review of Systems: All systems reviewed & are unremarkable except as noted in HPI and below Constitutional: Constitutional: Reports as per HPI, Reports no additional constitutional complaints, Reports body ache(s), Reports chills, Reports headache(s) and Reports poor appetite ENT: Reports system reviewed and no additional complaints, except as documented, Reports nasal congestion, Reports nasal discharge and Reports post nasal drip Cardiovascular: Cardiovascular: Reports no additional cardiovascular complaints Respiratory: Respiratory: Reports as per HPI, Reports no additional respiratory complaints and Reports cough Gastrointestinal: Gastrointestinal: Reports no additional gastrointestinal complaints PMF Past Medical History Medical History IUP (intrauterine ), incidental Morbid obesity with BMI of 40.0-44.9, adult Family History Family History Grandparent Carcinoma of colon Social History Social History Smoking packs per day: 0.5 Smoking cigarettes per day: 10.0 Years smoked: 18 Smoking pack-years: 9.00 Smoking status: Heavy tobacco smoker Tobacco type: cigarettes Second hand tobacco smoke exposure: No Alcohol intake: current Drinks per week: 24 Substance use: never Lack of Transportation: No Lack of Food: Never True Current Housing: I Have Housing Concerned About Future Housing: No Difficulty Paying Gas/Electric Bills: No Difficulty Paying for Meds: No Currently Unemployed: No Education: Bachelor's Degree Difficulty w/ Childcare or Family Care: No Gender identity (if verbalized by the patient): Female Sexual Orientation (if Verbalized by the Patient): Straight or Heterosexual Spiritual care concerns: No Comments At the time of my signature, I reviewed and agree with the nursing past medical, surgical, social, and family history. There is no relevant family history pertinent to the patient complaint. Exam Const: General: cooperative, no acute distress, alert and awake Orientation/consciousness: oriented to person, oriented to place and oriented to time HENMT: Head: normal to inspection Ears: TM's normal bilaterally Face and sinus: sinus tenderness maxillary Mouth: Yes moist mucous membranes Teeth and gingiva: dentition normal Throat: posterior oropharynx abnormal erythema and postnasal drainage Resp: Effort & Inspection: normal respiratory effort and able to speak in complete sentences Auscultation: clear to auscultation bilaterally, no crackles, no rales, no rhonchi and no wheezes Cardio: Palpation: normal PMI Rate: regular rate Rhythm: regular rhythm Heart sounds: S1 normal heart sound present and S2 normal heart sound present Neuro: General: oriented to person, oriented to place and oriented to time Cranial nerves: Yes CN's II-XII intact bilaterally Psych: Appearance: grossly normal Thought process: Normal thought
== END 2023-10-25 11:54 | disposition home or self-care (01) ==
PROVIDERS: Emergency Provider Nurse Practitioner Family; PCP Family Medicine
DX: J01.00 Acute maxillary sinusitis, unspecified (principal); E66.01 Morbid (severe) obesity due to excess calories; Z68.36 Body mass index [BMI] 36.0-36.9, adult
CPT/HCPCS: 99213; G0463

== ENCOUNTER 2023-11-15 08:36 | Emergency (ER) | payer OTHER, SELFPAY ==
[2023-11-15 08:45] VITALS: BP 126/77; PULSE 91; RESP 18; TEMP 36.4; O2SAT 99
--- NOTE | 2023-11-15 09:13 | ED.URI ---
HPI - URI/Sore Throat General Chief Complaint: Upper Respiratory Infection Stated Complaint: sinus infection Time Seen by Provider: 11/15/23 08:54 Source: patient, RN notes reviewed and old records reviewed Mode of arrival: ambulatory Limitations: no limitations History of Present Illness HPI Narrative: 38-year-old female to [facility] with complaint of yellow nasal drainage, sinus pressure, right ear pain, body aches, chills. Patient states she was seen here 2 weeks ago and treated for a sinus infection. Patient states she completed entire course of antibiotic treatment. Patient appears tired and acutely ill. Resting in exam room in no acute distress. Respirations even and nonlabored. Related Data Allergies Allergy/AdvReac Type Severity Reaction Status Date / Time Sulfa (Sulfonamide Allergy Mild Rash Verified 11/15/23 08:53 Antibiotics) Review of Systems Review of Systems: All systems reviewed & are unremarkable except as noted in HPI and below Constitutional: Constitutional: Reports as per HPI, Reports body ache(s) and Reports chills Eyes: Eyes: Reports no additional eye complaints ENT: Reports as per HPI, Reports otalgia ( Right), Reports nasal congestion, Reports nasal discharge and Reports sinus pressure Cardiovascular: Cardiovascular: Reports no additional cardiovascular complaints, Denies chest pain and Denies dyspnea Respiratory: Respiratory: Reports no additional respiratory complaints, Denies cough and Denies dyspnea Musculoskeletal: Musculoskeletal: Reports no additional musculoskeletal complaints Neurologic: Reports system reviewed and no additional complaints, except as documented Psychiatric: Psychiatric: Reports no additional psychiatric complaints [facility] Past Medical History Medical History IUP (intrauterine ), incidental Morbid obesity with BMI of 40.0-44.9, adult Family History Family History Grandparent Carcinoma of colon Social History Social History Smoking packs per day: 0.5 Smoking cigarettes per day: 10.0 Years smoked: 18 Smoking pack-years: 9.00 Smoking status: Heavy tobacco smoker Tobacco type: cigarettes Second hand tobacco smoke exposure: No Alcohol intake: current Drinks per week: 24 Substance use: never Do You Feel Safe in your Home?: Yes Lack of Transportation: No Lack of Food: Never True Current Housing: I Have Housing Concerned About Future Housing: No Difficulty Paying Gas/Electric Bills: No Difficulty Paying for Meds: No Currently Unemployed: No Education: Bachelor's Degree Difficulty w/ Childcare or Family Care: No Gender identity (if verbalized by the patient): Female Sexual Orientation (if Verbalized by the Patient): Straight or Heterosexual Spiritual care concerns: No Comments At the time of my signature, I reviewed and agree with the nursing past medical, surgical, social, and family history. There is no relevant family history pertinent to the patient complaint. Exam Const: General: cooperative, no acute distress, well developed, alert, ill appearing acutely, tired appearing, uncomfortable, well groomed and well nourished Nutritional Appearance: well nourished Orientation/consciousness: patient oriented x3 Limitations: no limitations HENMT: Head: normal to inspection Ears: external ears normal and TM abnormal bulging on the right, dull on the right, erythematous on the right, with fluid behind the TM on the right and with loss of landmarks on the right Face/Nose/Sinus: Normal external nose present, Abnormal mucous membranes and turbinates present boggy and erythematous, normal facial exam, No erythema and No edema Face and sinus: normal facial exam, no erythema and no edema Mouth: Yes Normal oral and palatal mucosa prese
== END 2023-11-15 09:26 | disposition home or self-care (01) ==
PROVIDERS: Emergency Provider Nurse Practitioner Family; PCP Family Medicine
DX: H66.93 Otitis media, unspecified, bilateral (principal); F17.210 Nicotine dependence, cigarettes, uncomplicated; E66.01 Morbid (severe) obesity due to excess calories; Z68.41 Body mass index [BMI] 40.0-44.9, adult
CPT/HCPCS: 99213; G0463

== ENCOUNTER 2024-01-29 11:18 | Emergency (ER) | payer OTHER, SELFPAY ==
[2024-01-29 11:48] VITALS: BP 146/91; PULSE 84; RESP 18; TEMP 36.2; O2SAT 100
--- NOTE | 2024-01-29 12:44 | ED_ITS ---
HPI - URI/Sore Throat General Chief Complaint: Upper Respiratory Infection Stated Complaint: sinus infection Source: patient Mode of arrival: ambulatory Limitations: no limitations History of Present Illness HPI Narrative: 38-year-old female presents to [facility] with complaints of sinus pressure, bilateral ear pressure, nasal congestion for the past 3-4 days. Patient reports that she has plugging in her toaster today, when she had a warm sensation come across her chest which lasted for 3 seconds. Patient reports that she then became lightheaded and had to sit down. Patient reports that she had the simil ar symptoms when diagnosed with a sinus infection the past. Patient denies sick contacts. Patient denies recent travel. Patient denies fever, body aches, chills, nausea vomiting or diarrhea. MD elicited complaint: nasal congestion and sinus pain Onset (ago): day(s) (3-4) Able to tolerate fluids by mouth: Yes Exacerbating factors: nothing Relieving factors: nothing Related Data Allergies Allergy/AdvReac Type Severity Reaction Status Date / Time Sulfa (Sulfonamide Allergy Mild Rash Verified 01/29/24 12:01 Antibiotics) gluten AdvReac Intermediate Gastrointestinal Verified 01/29/24 12:01 Upset Review of Systems Constitutional: Constitutional: Denies chills, Denies fatigue, Denies fever(s) and Denies weakness ENT: Denies dizziness, Denies epistaxis, Reports nasal congestion and Denies sore throat Respiratory: Respiratory: Denies cough, Denies dyspnea and Denies wheezing Gastrointestinal: Gastrointestinal: Denies diarrhea, Denies nausea and Denies vomiting Musculoskeletal: Musculoskeletal: Denies arthralgias and Denies joint swelling Integumentary/Breasts: Skin/Breast: Denies erythema, Denies rash and Denies skin ulcer Neurologic: Denies syncope and Denies headache(s) [facility] Past Medical History Medical History IUP (intrauterine ), incidental Morbid obesity with BMI of 40.0-44.9, adult Family History Family History Grandparent Carcinoma of colon Social History Social History Smoking packs per day: 0.5 Smoking cigarettes per day: 10.0 Years smoked: 18 Smoking pack-years: 9.00 Smoking status: Heavy tobacco smoker Tobacco type: cigarettes Second hand tobacco smoke exposure: No Alcohol intake: current Drinks per week: 24 Substance use: never Do You Feel Safe in your Home?: Yes Lack of Transportation: No Lack of Food: Never True Current Housing: I Have Housing Concerned About Future Housing: No Difficulty Paying Gas/Electric Bills: No Difficulty Paying for Meds: No Currently Unemployed: No Education: Bachelor's Degree Difficulty w/ Childcare or Family Care: No Gender identity (if verbalized by the patient): Female Sexual Orientation (if Verbalized by the Patient): Straight or Heterosexual Spiritual care concerns: No Comments At time of signature, I agree with nursing past medical, surgical, social and family history. There is no relevant family history pertinent to the presenting complaint. Exam Const: General: healthy appearing and no acute distress Nutritional Appearance: well nourished Orientation/consciousness: patient oriented x3 Limitations: no limitations HENMT: Head: normal to inspection Ears: external ears normal, TM's normal bilaterally and EAC's normal Face/Nose/Sinus: Normal external nose present Mouth: Yes Normal oral and palatal mucosa present, Yes lip normal and Yes moist mucous membranes Teeth and gingiva: dentition normal Throat: posterior oropharynx normal and uvula midline Other: Mild nasal congestion noted. Mild frontal sinus pressure noted. Eyes: Conjunctivae: conjunctivae normal Neck: Neck: normal visual inspection Resp: Effort & Inspection: normal respiratory effort and not labored Auscultation: clear to auscultation bilaterally, no crackles, no rales, no rhon chi and no wheezes Cardio: Rate: regular rate Rhythm: regular rhythm Heart sounds: no murmurs Skin: General skin exam: normal color Rashes: no rashes Wounds: no wounds Neuro: General: patient oriented x3 Speech: normal speech Extrem: General: normal to inspection Psych: Affect: normal affect Attitude: cooperative Course Course Level of Care: Express Care Visit Vital Signs Vital signs: Vital Signs Temperature 36.2 C L 01/29/24 11:48 Pulse Rate 84 01/29/24 11:48 Respiratory Rate 18 01/29/24 11:48 Blood Pressure 146/91 H 01/29/24 11:48 Pulse Oximetry 100 01/29/24 11:48 Oxygen Delivery Room Air 01/29/24 11:48 Temperature 36.2 C L 01/29/24 11:48 Pulse Rate 84 01/29/24 11:48 Respiratory Rate 18 01/29/24 11:48 Blood Pressure 146/91 H 01/29/24 11:48 Pulse Oximetry 100 01/29/24 11:48 Oxygen Delivery Room Air 01/29/24 11:48 MDM - URI/Sore Throat MDM Narrative Medical decision making narrative: Instructed patient to continue Zyrtec daily. Educated patient symptoms are likely viral at this time. Educated patient take Medrol Dosepak as prescribed and follow-up with primary care provider if symptoms are improved. Differential Diagnosis Differential diagnosis: Likely otitis media, sinusitis and bronchitis Lab Data Labs: Negative rapid strep, negative influenza, negative COVID Critical Care Time Critical Care Time Critical Care Time: No Discharge Plan Discharge Clinical Impression: Viral infection Patient Disposition: Home, Self-Care Condition: Stable Instructions: Viral Syndrome (ED) Additional Instructions: Continue Zyrtec daily Take Flonase daily Take Medrol Dosepak as prescribed Follow-up with primary care provider if symptoms not improved Patient Language: Luxembourger Prescriptions: New fluticasone propionate [Flonase Allergy Relief] 50 mcg/actuation spray,suspension 1 spray intranasal BID 7 Days Qty: 16 0RF Rx Instructions: administer into each nostril methylprednisolone [Medrol (Cm)] 4 mg tablets,dose pack See Rx Instructions .ROUTE .COMPLEX Qty: 21 0RF Rx Instructions: orally per package directions Follow-up/Referrals: Alex Vaca MD [Primary Care Provider] - Time of Disposition: 12:50
[2024-01-29 13:05] LABS: EDCOVIDSCREEN Negative (Negative); EDINFLUASCREEN Negative (Negative); EDINFLUBSCREEN Negative (Negative); EDSTREPNEGPOS1 Negative (Negative)
--- OUTSIDE RECORDS SUMMARY | 2024-02-05 16:55 | XMS_ITS | Encounter Summary ---
Author Organization [facility] Address [address] 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 Phone Unavailable Primary Care Provider Unavailabl e Reason for Visit * Reason Comments Sinusitis Encounter Details Date Type Department Care Team (Late st Contact Info) Description 08/30/2017 3:20 PM CDT Office Visit [facility] AT [address] [phone] Provider, Debbie Ashford [place] Strep pharyngitis (Primary Dx); Upper respiratory tract infection, unspecified type Social History Tobacco Use Types Packs/Day Years Used Date Smoking Tobacco: Every Day Cigarettes Smokeless Tobacco: Never Sex and Gender Information Value Date Recorded Sex Assigned at Not on file Gender Identity Not on file Sexual Orientation Not on file documented as of this encounter Last Filed Vital Signs Vital Sign Reading Time Taken Comments Blood Pressure 114/82 08/30/2017 3:17 PM CDT Pulse 85 08/30/2017 3:17 PM CDT Temperature 37.1 ??C (98.7 ??F) 08/30/2017 3:17 PM CD T Respiratory Rate 16 08/30/2017 3:17 PM CDT Oxygen Saturation 97% 08/30/2017 3:17 PM CDT Inhaled Oxygen Concentration - - Weight 79.4 kg (175 lb) 08/30/2017 3:17 PM CDT Height 157.5 cm (5' 2 ) 08/30/2017 3:17 PM CDT Body Mass Index 32.01 08/30/2017 3:17 PM CDT documented in this encounter Patient Instructions * Patient Instructions* Vladimir Ashford APRN-JEFF - 08/30/2017 3:44 PM CDT Images from the original note were not included. 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 It is easily spread from person to person. Common symptoms include the following: ?? Sore, red, and swollen throat ?? Fever and headache ?? Upset stomach, abdominal pain, or vomiting ?? White or yellow patches or blisters in the back of your throat ?? Tender, swollen lumps on the sides of your neck or jaw ?? Throat pain when you swallow Call 911 for any of the following: ?? You have trouble breathing. Seek care immediately if: ?? You have new symptoms like a bad headache, stiff neck, chest pain, or vomiting. ?? You are drooling because you cannot swallow your spit. Contact your healthcare provider if: ?? You have a fever. ?? You have a rash or ear pain. ?? You have green, yellow-brown, or bloody mucus when you cough or blow your nose. ?? You are unable to drink anything. ?? You have questions or concerns about your condition or care. Treatment for strep throat may include antibiotic medicine to treat your strep throat. You should feel better within 2 to 3 days after you start antibiotics. You may return to work or school 24 hoursafter you start antibiotics. Manage strep throat: ?? Use lozenges, ice, soft foods, or popsicles to soothe your throat. ?? Drink juice, milk shakes, or soup if your throat is too sore to eat solid food. Drinking liquidscan also help prevent dehydration. ?? Gargle with salt water. Mix ?? teaspoon salt in a glass of warm water and gargle. This may help reduce swelling in your throat. ?? Do not smoke. Nicotine and other chemicals in cigarettes and cigars can cause lung damage and make your symptoms worse. Ask your healthcare provider for information if you currently smoke and needhelp to quit. E-cigarettes or smokeless tobacco still contain nicotine. Talk to your healthcare provider before you use these products. Prevent the spread of strep throat: ?? Wash your hands often. Use soap and water. Wash your hands after you use the bathroom, change a child's diapers, or sneeze. Wash your hands before you prepare or eat food. ?? Do not share food or drinks. Replace your toothbrush after you have taken antibiotics for 24 hours. Follow up with your healthcare provider as directed: Write down your questions so you remember to ask them during your visits. ?? 2017 [employer] Information is for End User's use only and may not be sold, redistributed or otherwise used for commercial purposes. All illustrations and images included in CareNotes?? are the copyrighted property of [employer] or [employer]. The above information is an hearing aid repair technician only. It is not intended as medical advice for individual conditions or treatments. Talk to your doctor, nurse or pharmacist before following any medical regimen to see if it is safe and effective for you. Cold Symptoms [employer]GING [employer]NER: Cold symptoms include sneezing, dry throat, a stuffy nose, headache, watery eyes, and a cough. Yourcough may be dry, or you may cough up mucus. You may also have muscle aches, joint pain, and tiredness. Rarely, you may have a fever. Cold symptoms occur from inflammation in your upper respiratory system caused by a virus. Most colds go away without treatment. Seek care immediately if: ?? You have increased tiredness and weakness. ?? You are unable to eat. ?? Your heart is beating much faster than usual for you. ?? You see white spots in the back of your throat and your neck is swollen and sore to the touch. ?? You see pinpoint or larger reddish-purple dots on your skin. Contact your healthcare provider if: ?? You have a fever higher than 102??F (38.9??C). ?? You have new or worsening shortness of breath. ?? You have thick nasal drainage for more than 2 days. ?? Your symptoms do not improve or get worse within 5 days. ?? You have questions or concerns about your condition or care. Treatment for cold symptoms may include NSAIDS to decrease muscle aches and fever. Cold medicines may also be given to decrease coughing, nasal stuffiness, sneezing, and a runny nose. Manage your cold symptoms: The following may help relieve cold symptoms, such as a dry throat and congestion: ?? Gargle with mouthwash or warm salt water as directed. ?? Suck on throat lozenges or hard candy. ?? Use a cold or warm vaporizer or humidifier to ease your breathing. ?? Rest for at least 2 days and then as needed to decrease tiredness and weakness. ?? Use petroleum based jelly around your nostrils to decrease irritation from blowing your nose. ?? Drink plenty of liquids. Liquids will help thin and loosen thick mucus so you can cough it up. Liquids will also keep you hydrated. Ask your healthcare provider which liquids are best for you and how much to drink each day. Prevent the spread of germs by washing your hands often. You can spread your cold germs to others for at least 3 days after your symptoms start. Do not share items, such as eating utensils. Cover your nose and mouth when you cough or sneeze using the crook of your elbow instead of your hands. Throwused tissues in the garbage. Do not smoke: Smoking may worsen your symptoms and increase the length of time you feel sick. Talk with your healthcare provider if you need help to stop smoking. Follow up with your healthcare provider as directed: Write down your questions so you remember to ask them during your visits. ?? 2017 [employer] Information is for End User's use only and may not be sold, redistributed or otherwise used for commercial purposes. All illustrations and images included in CareNotes?? are the copyrighted property of [employer] or [employer]. The above information is an hearing aid repair technician only. It is not intended as medical advice for individual conditions or treatments. Talk to your doctor, nurse or pharmacist before following any medical regimen to see if it is safe and effective for you. documented in this encounter Progress Notes * Vladimir Ashford APRN-CNP - 08/30/2017 3:36 PM CDT Subjective: Siri Nix is a 31 y.o. female who presents for evaluation: Chief Complaint Patient presents with ??? Sinusitis Primary Care Physician is Alex Vaca MD. Symptoms include sore throat. Started with mild to moderate sore throat, 4 days ago, then cough started Wednesday, then Wednesday fever (did not take temperature but felt feverish) chills, body aches, and head/sinus congestion started. No sick contacts that pt is aware of and no recent travel. Pt states she works in [place]. Onset of symptoms was 4 days ago, gradually worsening since that time. She is drinking plenty of fluids. Evaluation to date: none. Treatment to date: zyrtec daily dayquil and nyquil with some relief. Allergies Allergen Reactions ??? Sulfa Drugs Urticaria Outpatient Prescriptions Marked as Taking for the 08/30/17 encounter (Office Visit) with Provider, Debbie Corteswood Medication Sig ??? Cetirizine HCl (ZYRTEC PO) ??? Ascorbic Acid (VITAMIN C ER PO) ??? Multiple Vitamin (MULTI VITAMIN PO) ??? amoxicillin (AMOXIL) 875 MG tablet Take 1 tablet by mouth 2 times daily for 10 days Past Medical History: Diagnosis Date ??? No known health problems Social History Social History ??? Marital status: Single Spouse name: N/A ??? Number of children: N/A ??? Years of education: N/A Occupational History ??? Not on file. Social History Main Topics ??? Smoking status: Current Every Day Smoker Packs/day: 1.00 Types: Cigarettes ??? Smokeless tobacco: Never Used ??? Alcohol use Not on file ??? Drug use: Not on file ??? Sexual activity: Not on file Other Topics Concern ??? Not on file Social History Narrative Medications reviewed. Review of Systems Pertinent items are noted in HPI Constitutional: Positive for fevers, chills Eyes: Negative Ears, nose, mouth, and throat: sore throat, nasal/sinus congestion, Respiratory: Positive for acute cough Cardiovascular: Negative Gastrointestinal: Negative Skin: Negative Hematologic/lymphatic: Negative Musculoskeletal:general body aches Neurological: Negative Objective: BP 114/82 (BP SITE: LEFT ARM, BP POSITION: SITTING, BP CUFF SIZE: 11) Pulse 85 Temp 98.7 ??F (37.1 ??C) (Oral) Resp 16 Ht 1.575 m (5' 2 ) Wt 79.4 kg (175 lb) SpO2 97% BMI 32.01 kg/m2 Skin: Physical Exam Exam General appearance: alert, cooperative, no distress, oriented to person, place, and time, wellappearing Head: normocephalic, without trauma Eyes: sclera and conjunctiva clear, EOMI and PERRLA, lids normal Ears: canals clear, tympanic membranes normal, hearing intact to voice Nose: nares open; no septal deviation is noted, no maxillary tenderness, mucosa erythematous and swollen, no frontal tenderness, ethmoid tenderness Throat: lips, mucosa, and tongue normal; teeth and gums normal, mild oropharyngeal erythema, tonsillar hypertrophy 2+, no exudates present, uvula midline Neck: range of motion is intact, supple Nodes: no cervical adenopathy Lungs: breath sounds normal and symmetric; no rales or wheezes Heart: regular rhythm, normal S1 and S2, without murmurs, gallops or rubs Neurologic: mental status normal; alert and oriented X 3; Assessment: . Encounter Diagnoses Name Primary? Strep pharyngitis Yes ??? Upper respiratory tract infection, unspecified type Plan: Discussed dx and tx of URIs Discussed the dx and tx of sinusitis. Suggested symptomatic OTC remedies. Antibiotics per orders. RTC prn. Drink plenty of fluids and get plenty of rest You can take an over the counter decongestant and/or antihistamine daily (per package directions) such as Zyrtec-D You can take Tylenol or ibuprofen as needed for fever or pain (per package directions) If you begin to run a fever or if symptoms worsen, such as difficulty breathing or shortness of breath, seek medial attention as soon as possible. Honey can be used to help with cough. The honey (2.5 to 5 ml [0.5 to 1 teaspoon]) can be given straight or diluted in liquid (eg, tea, juice) Humidifier may be helpful especially at night Change toothbrush on Day 3 of antibiotics Warm salt water gargles PRN Educational material given on strep throat If you experience difficulty swallowing or drooling seek medical attention immediately Consider contagious until after 24hrs on antibiotics If symptoms persist on antibiotics or worsen at any time, follow up with a health care provider, clinic or emergency care Continue to follow up with Alex Vaca MD as directed. After Visit Summary reviewed with patient. The patient indicates understanding of these issues and agrees with the plan. Patient discharged to Home .Vladimir Ashford APRN-JEFF 08/30/2017 3:51 PM Orders Placed This Encounter ??? STREP A SCREEN ??? amoxicillin (AMOXIL) 875 MG tablet Sig: Take 1 tablet by mouth 2 times daily for 10 days Dispense: 20 tablet Refill: 0 Recent Results (from the past 24 hour(s)) STREP A SCREEN Collection Time: 08/30/17 3:41 PM Result Value Ref Range Strep A Rapid Positive (Abnormal) Negative Strep A INTERNAL CONTROL Present Lot Number [id number] Expiration Date 02 24 2019 documented in this encounter Plan of Treatment Not on file documented as of this encounter Procedures Procedure Name Priority Date/Time Associated Diagnosis Comments STREP A SCREEN - POINT OF CARE (AMB) STL Routine 08/30/2017 3:41 PM CDT Strep pharyngitis documented in this encounter Results * (ABNORMAL) STREP A SCREEN (08/30/2017 3:41 PM CDT) Strep A Rapid POCT Positive(A) Negative Strep A Internal Control Present Lot # [id number] Expiration Date 02 24 2019 Throat ENTIRE THROAT (SURFACE REGION OF NECK) / Unknown 08/30/2017 3:41 PM CDT [facility] - POINT OF CA RE ORDERABLES documented in this encounter Visit Diagnoses Diagnosis Strep pharyngitis- Primary Streptococcal sore throat Upper respiratory tract infection, unspecified type documented in this encounter
--- OUTSIDE RECORDS SUMMARY | 2024-02-05 16:55 | XMS_ITS | Data Portability ---
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 continue pelvic rest until then FU 4 mos repap [email or web address] Not available 12/03/2021 17:04:51 12/23/2021 12/23/2021 normal activity repap end mar margins were clear [email or web address] Not available 12/23/2021 16:29:57 Plan of Treatment Reminders Order Date Submit Date Provider Last Modified By Organization Details Last Modified Time Details Appointments None recorded. Lab test, urine 2022 023 [email or web address] [address] [place], [address], [place], [address], 3 14:23:23 Referral None recorded. Procedures None recorded. Surgeries None recorded. Imaging US, obstetric, transvagina l 2022 023 [facility], [address], [place], [address], 3 11:37:16 Medication Orders None recorded. Patient TargetsNo targets recorded. Patient InstructionsNo instructions recorded. Reason for Referral None Reported. Results Created Date Observation Date Name Description Value Unit Range Abnormal Flag Note LastModifiedBy Organization Detail LastModifiedTime 11/29/19 22 11/28/2021 CT/GC AND TRICH OMONA S VAGIN ALBER (RRNA ), SWAB chlamydia trachomatis, PCR Negati ve negati ve Not Available [facility] [address] [place], [address], 12/01/2021 15:55:28 11/29/19 22 11/28/2021 CT/GC AND TRICH OMONA S VAGIN ALBER (RRNA ), SWAB neisseria gonorrhoeae, PCR Negati ve negati ve Not Available [facility] [address] [place], [address], 12/01/2021 15:55:28 11/29/19 22 11/28/2021 CT/GC AND TRICH OMONA S VAGIN ALBER (RRNA ), SWAB trichomonas vaginalis ribosomal RNA (rrna) Negati ve negati ve Not Available [facility] [address] [place] [address], [address], 12/01/2021 15:55:28 11/29/19 22 11/28/2021 SURGI BASIL PATHO LOGY surgical pathology SEE RESULT S BELOW CASE REPOR T: Surgi basil Patho logy Repor t Case: [id number] Autho gilbert cabral Provi heath: Sarah Hernandez MD Colle cted: 11/28 1528 Order ing Locat ion: [place] Patho logy Recei kathy: 11/29 0217 Patho logis t: Alee Abreu MD Speci men: Cervi x, LEEP FINAL DIAGN OSIS: Cervi x, LEEP: -High -grad e squam ous intra epith elial lesio n (EZEKIEL- 3). -Inke d ectoc ervic al and endoc ervic al jan ns negat reed for dyspl otto. Elect robert cm by Alee Abreu MD on 12/01 at 2:53 PM ----- ----- ----- ----- ----- ----- ----- ----- ----- ----- ----- ----- ----- ----- ----- ----- ----- ---- COMME NT: Multi ple deepe r level s were exami nicolas block s A2 and A3. High- grade CARLOS (EZEKIEL- 3) is prese nt in well orien patti piece s of ectoc ervix and endoc ervix . EZEKIEL-3 is also prese nt withi n detac hed fragm ents of squam ous epith elium . In the well orien patti fragm ents, the ectoc ervic al and endoc ervic al jan ns are negat reed for dyspl otto. The case was revie wed with stefanie murillo of the [facility] who agree s with the above inter preta tion. CLINI BASIL INFOR MATIO N: z11.3 MICRO SCOPI C DESCR IPTIO N: A micro scopi c exami natio n was perfo rmed. GROSS DESCR IPTIO N: A. Cervi x. The speci men is recei kathy in forma shala label ed with the patie nt's name, clementeramos ventura, and LEEP cervi x . It consi sts of a lopez-b rown, parti ally fragm ented cervi basil LEEP measu ring 2.9 x 1.3 x 0.5 cm. The propo sed endoc ervic al resec tion jan n is inked yello w and the circu mfere ntial jan n is inked black . The attac hed ectoc ervic al mucos a is pink- lopez and sligh tly rough ened. The opene d end is arbit raril y desig nated as 12:00 . Also withi n the conta iner there is lopez-b rown tissu e and mucoi d mater ial measu ring 1.5 x 0.5 x 0.2 [address] in ag[address] gate. The speci men is submi tted entir bailey as follo ws: A1: Addit ional tissu e and mucoi d mater ial A2-A5 : Cervi basil LEEP, submi tted seque ntial ly from 12:00 Gross ed by Lebron Powers Not Available [facility] [address] [place], [address], 12/01/2021 15:55:29 11/29/19 22 11/28/2021 pregn xiao test, urine HCG negati ve Not Available [place] [address], [place], [address], 11/28/2021 15:45:10 03/02/19 23 03/02/2022 pregn xiao test, urine HCG positi ve Not Available [place] [address], [place], [address], 03/02/2022 14:22:50 05/08/19 23 05/07/2022 IMAGE GUIDE D PAP AND HPV REGAR DLESS image guided Pap, HPV regardless of Pap result SEE RESULT S BELOW CASE REPOR T: Cytol ogy Gynec ologi basil Repor t Case: [id number] Autho gilbert cabral Provi heath: Romain Verdugo Colle cted: 05/07 1717 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 Elect robert sloan katlyn d by Ilsa Oseguera, CT on 023 at 2:56 PM ----- ----- ----- ----- ----- ----- ----- ----- ----- ----- ----- ----- ----- ----- ----- ----- ----- ---- HPV RESUL TS: HPV mRNA E6/E7 : No HPV mRNA Detec patti NOTE: This high risk HPV mRNA assay detec ts fourt een high- risk HPV types (16, 18, 31, 33, 35, 39, 45, 51, 52, 56, 58, 59, 66, 68) witho ut diffe renti ation . COMME NT: This speci men was revie wed by a Cytot echno logis t and/o r Patho logis t (as indic ated in this repor t) after evalu ation using the Thinp rep Imagi ng Syste m. CLINI BASIL INFOR MATIO N: Menst rual Statu s: LMP (if appli cable ): Clini basil Histo ry/Pr eviou s Pap: Type of Neopl otto (if appli cable ): Signi fican t Clini basil Findi ngs: Other Histo ry: Hormo jacobo (if appli cable ): PAP EDUCA SONY L NOTE: The Pap Test is a scree jessie test with an inher ent false negat reed rate. Liqui d-bas ed sampl ing may decre ase, but will not elimi hermes, false negat reed resul ts. A negat reed resul t does not precl ude the prese nce and/o r devel opmen t of disea se, since the prese nce of abnor mal cells in the sampl e depen ds on the locat ion of the lesio n and sampl ing techn ique. Fabian nued regul ar scree jessie is the best metho d of cance r preve ntion . If repor patti cytol ogic findi ng do not corre late with physi basil and/o r histo rical findi ngs, furth er inves tigat ion is recom lavon d, as nasir lee nted. Not Available [facility] (Lab) [address], [place], [address], 05/12/2022 15:59:29 02/08/19 23 02/07/2022 US, obste tric, follo w-up No observ ation record ed. [email or web address] [facility] [address], [place], [address], 02/12/2022 13:20:00 02/11/19 23 02/11/2022 US, obste tric, trans vagin al No observ ation record ed. [email or web address] [place] [address], [place], [address], 02/11/2022 16:56:38 02/11/19 23 02/11/2022 US, obste tric, trans vagin al No observ ation record ed. ALLIE Marley [address], [place], [address], 02/26/2022 09:02:08 Result Notes None recorded. Problems Name Problem SNOMED Code Status Onset Date Resolution Date Notes Provider Name and Address Organization Details Recorded Time Pregnanc y 38133694 Completed 201901/22/2020 Constance viera, [facility] 0 12:22:10 Smoker 18562050 Completed Brina viera, [facility] 3 13:06:22 Itching 001812974 Completed feet - labs WNL Brina viera, [facility] 3 13:06:22 Large for gestatio n age fetus 735010166 Completed US Brina viera, [facility] 3 13:06:22 Cervical intraepi thelial neoplasi a grade III with severe dysplasi a 889277634 Active 2021 Sarah Yee MD [address], [place], [address], [facility] 2 19:59:51 History of loop electros urgical excision procedur e 70033697625 102 Active 2021 Sarah Yee MD [address], [place], [address], [facility] 17:05:02 Problem Notes None recorded. Procedures Surgical History Date Name Laterality Status Provider Name and Address Organization Details Recorded Time 11/29/19 22 LEEP completed Sarah Yee MD [address], [place], [address], [facility] 11/28/2021 16:18:12 11/29/19 22 LEEP completed Esther Fabian [facility] 11/28/2021 15:34:02 09/27/19 22 Colposcopy completed Sarah Yee MD [address], [place], [address], [facility] 09/26/2021 16:19:29 09/27/19 22 [facility] 03/02/2022 13:08:53 09/27/19 22 [facility]pos[facility] 03/02/2022 13:09:40 08/26/19 22 Date of Last Pap Smear completed Brina [facility] 03/02/2022 13:00:29 02/08/19 07 extraction of wisdom tooth completed Brinasamreen Christiansen [facility] 06/07/2019 16:41:17 02/08/18 89 Unlisted px lacrimal system [facility] 06/07/2019 16:41:06 Imaging Results Imaging Date Name Status LastModified by Organization Details LastModified Time 02/07/2022 US, obstetric, follow-up completed [place] [address], [place], [address], 02/12/2022 13:20:00 02/11/2022 US, obstetric, transvaginal completed [email or web address] [place] [address], [place], [address], 02/11/2022 16:56:38 02/11/2022 US, obstetric, transvaginal completed ALLIE Marley [address], [place], [address], 02/26/2022 09:02:08 Procedure Notes None recorded. Medical Equipment None Reported. Allergies Allergen ID Allergen Name Allergen Category Reaction Reaction Severity Criticality Documentation Date Start Date Code Code System Note Provider Name and Address Organization Details Recorded Time 395 Substance with sulfonami de structure and antibacte rial mechanism of action (substanc e) medicatio n Not available Not available Not available 06/07/2019 63322 8003 SNOMED Brina Christiansen [facility] 0 10:34:02 Medications Name Sig Start Date Stop Date Status Note LastModified by Organization Details LastModified Time amoxicillin 500 mg capsule TAKE 1 CAPSULE BY MOUTH THREE TIMES DAILY UNTIL GONE 12/23 completed Not Available Not Available Not Available Xanax 0.5 mg tablet Take 1 tablet 2 hours before the procedure . 12/03 completed Not Available Not Available Not Available azithromyci n 250 mg tablet 12/03 completed Not Available Not Available Not Available fluconazole 150 mg tablet take one tablet today and 1 in 48 hours 07/13 completed Not Available Not Available Not Available metronidazo le 0.75 % (37.5 mg/5 gram) vaginal gel Insert 1 applicato rful every day by vaginal route for 3 days. 07/13 completed Not Available Not Available Not Available metronidazo le 500 mg tablet 12/23 completed Not Available Not Available Not Available ciprofloxac in 500 mg tablet 03/02 completed Not Available Not Available Not Available Zofran 8 mg tablet Take 1 tablet 2 hours before the procedure . 12/03 completed Not Available Not Available Not Available amoxicillin 875 mg tablet 07/06 completed Not Available Not Available Not Available Coalgate 10 mg-325 mg tablet Take 1 tablet 2 hours before the procedure . 12/03 completed Not Available Not Available Not Available amoxicillin 875 mg-potassiu m clavulanate 125 mg tablet TAKE 1 TABLET BY MOUTH EVERY 12 HOURS 08/25 completed Not Available Not Available Not Available Vitamin C 12/03 completed Not Available Not Available Not Available 12/03 completed Not Available Not Available Not Available Zyrtec 12/03 completed Not Available Not Available Not Available Hair,Skin and Nails 07/15 completed Not Available Not Available Not Available Probiotic 12/03 completed Not Available Not Available Not Available Aurovela Fe 1-20 (28) 1 mg-20 mcg (21)/75 mg (7) tablet TAKE 1 TABLET BY MOUTH EVERY DAY 07/15 completed Not Available Not Available Not Available Slynd 4 mg (28) tablet TAKE 1 TABLET BY MOUTH EVERY DAY 07/15 completed Not Available Not Available Not Available Vitals Date Recorded Body height Body mass index (BMI) Body weight Systolic blood pressure Diastolic blood pressure Provider Name and Address Organization Details Last Updated DateTime 12/03/2021 158.75 cm 36 kg/m2 26277.47 g 121 mm[Hg] 83 mm[Hg] [facility] 2 16:31:59 Date Recorded Body height Body mass index (BMI) Body weight Systolic blood pressure Diastolic blood pressure Provider Name and Address Organization Details Last Updated DateTime 12/23/2021 158.75 cm 35.8 kg/m2 00440.88 g 125 mm[Hg] 85 mm[Hg] [facility] 2 16:20:54 Date Recorded Body height Body mass index (BMI) Body weight Systolic blood pressure Diastolic blood pressure Provider Name and Address Organization Details Last Updated DateTime 03/02/2022 158.75 cm 35.3 kg/m2 28192.1 g 120 mm[Hg] 85 mm[Hg] Brina Christiansen [facility] 3 14:12:56 Date Recorded Body height Body mass index (BMI) Body weight Systolic blood pressure Diastolic blood pressure Provider Name and Address Organization Details Last Updated DateTime 05/07/2022 158.75 cm 11.3 kg/m2 83708.32 g 122 mm[Hg] 82 mm[Hg] Cassie Ruffin [facility] 16:44:30 Social History Question Answer Notes LastModified by Organizat ion Details LastModified Time Tobacco Smoking Status Current Every Day Smoker Brina viera, [facility] 06/07/2019 16:39:53 What Is Your Level Of Alcohol Consumption? Moderate Information not available 06/07/2019 If You Are , What Was Your Level Of Alcohol Consumption Prior To ? Occasional [email or web address] Information not available 06/07/2019 Are You Blind Or Do You Have Difficulty Seeing? No [email or web address] Information not available 03/02/2022 Are You Deaf Or Do You Have Serious Difficulty Hearing? No [email or web address] Information not available 03/02/2022 Which Illicit Or Recreational Drugs Have You Used? Yes [place] [email or web address] Information not available 06/07/2019 Do You Or Have You Ever Used E-cigarettes Or Vape? Never Used Electronic Cigarettes [email or web address] Information not available 10/12/2019 Illicit Drugs Pre- Yes [email or web address] Information not available 06/07/2019 What Was The Date Of Your Most Recent Tobacco Screening? 03/02/2022 Information not available 03/02/2022 Do You Or Have You Ever Used Smokeless Tobacco? Never Used Smokeless Tobacco [email or web address] Information not available 10/12/2019 How Much Tobacco Do You Smoke? 1 PPD [email or web address] Information not available 07/15/2020 Smoking Pre- Yes [email or web address] Information not available 06/07/2019 Sex: Unknown Functional Status Question Answer Note LastModified by Organizat ion Details LastModified Time Do you have difficulty walking or climbing stairs? No Information not available 03/02/2022 Are you able to walk? YESWOREST [email or web address] Information not available 03/02/2022 Are you able to care for yourself? Yes [email or web address] Information not available 03/02/2022 Do you have difficulty dressing or bathing? No [email or web address] Information not available 03/02/2022 What is your exercise level? Occasional [email or web address] Information not available 06/07/2019 Mental Status None recorded. Family History Relationship Description Onset Age of this Age Resolved Age Notes LastModified by Organization Details LastModified Time Father Hypercholest erolemia [email or web address] Not available 06/06 16:38:07 Mother Hyperglycemi a Not available 06/06 16:38:29 Paternal Grandmother Malignant tumor of colon [email or web address] Not available 06/06 16:38:49 Sister Female infertility [email or web address] Not available 16:39:12 Sister Cyst of ovary [email or web address] Not available 06/06 16:39:31 Maternal Grandfather Malignant neoplasm of skin 60 [email or web address] Not available 2020 14:53:36 Medical History Condition Response Allergies (Food, seasonal, environmental ) N Other Y Breast Cancer N Drug/Latex Allergies/Reactions N Blood Transfusion N Dermatologic Disorders N Lung Disease N Defects or Inherited Disease N Breast Problem N Gestational Diabetes N Hematologic disorders N Anesthesia Complications N History of STI Y Deep Vein Thrombosis N Polycystic ovary syndrome N Anxiety Disorder N Autoimmune disease N Arthritis N Infertility N Polyps N Acid Reflux (GERD) N History of abnormal pap Y Cancer N Stroke N Varicosities N Neurologic/Epilepsy N Endometriosis N High Cholesterol N Headaches N Fibromyalgia N Kidney Disease N Heart Problems N Kidney or Bladder Problems N Thyroid Problems N GI Problems N Eating Disorder N Anemia N Art (IVF or FET) N Psychiatric Illness N Ovarian Cancer N Diabetes N Pulmonary (TB, Asthma) N Hepatitis/Liver Disease N No Past Medical History N Eczema N Urinary Tract Infection N Abuse/Domestic Violence N Asthma N Trauma/Violence N Depression/ depression N Heart Disease N Pre-Eclampsia N Hypertension N Osteoporosis N Thrombophilias N Gynecological History Statement/Question Response Abnormal Pap Yes Date of LMP 04/28/2022 On BCP's at Conception? N STIs/STDs Y Colposcopy 09/26/2021 13 Current Control Method None Sexually Active? Y Age of first menstrual cycle 4 Date of Last Pap Smear 08/25/2021 Sexual Problems? N Obstetrics History GPAL:G 3 P 0 2 2 1 Type Value Spontaneous 2 Premature 2 Living 1 Total 3 Past Encounters Encounter ID Performer Location Encounter Start Date Encounter Closed Date Diagnosis/Indication Diagnosis SNOMED-CT Code Diagnosis ICD10 Code [id number] Maria Del Carmen [facility] [address],[place] [address] 06/07/2019 09:31:49 06/07/2019 11:05:22 Amenorrhea 74937922 N91.2 Irregular periods 647661 07 N92.6 [id number] Chelsey [facility] [address],[place] [address] 06/07/2019 11:11:33 06/07/2019 13:09:12 screening 038192012 Z36.87 [id number] Maria Del Carmen [facility] [address],[place] [address] 07/07/2019 09:33:40 07/07/2019 12:11:17 Bacterial vaginosis 385101603 N76.0 [id number] Puma Lyn MD [place] [address],[place] [address] 07/14/2019 10:26:59 07/23/2019 15:35:29 [id number] Puma Lyn MD [place] [address],[place] [address] 07/14/2019 10:28:43 07/21/2019 13:32:44 Routine care 924336748 Z34.81 [id number] [facility] [address],[place] [address] 07/20/2019 12:19:56 07/20/2019 13:18:06 screening 032713712 Z36.82 Z36.0 [id number] [facility] [address],[place] [address] 08/10/2019 10:20:59 06/11/2020 17:38:24 [id number] Puma Lyn MD [place] [address],[place] [address] 08/18/2019 12:14:50 08/18/2019 13:01:59 Routine care 071021679 Z34.81 [id number] [facility] [address],[place] [address] 09/14/2019 11:57:02 09/14/2019 12:31:52 Routine care 731248119 Z34.92 [id number] [facility] [address],[place] [address] 09/15/2019 11:51:32 09/15/2019 13:37:26 screening for malformation 837850721 Z36.3 [id number] Maria Del Carmen [facility] [address],[place] [address] 10/12/2019 10:21:26 10/12/2019 11:36:31 Routine care 491823490 Z34.92 [id number] Puma Lyn MD [place] [address],[place] [address] 11/13/2019 11:29:14 11/13/2019 11:55:19 Large for gestation age fetus 972405287 O35.8XX9 [id number] [facility] [address],[place] [address] 11/29/2019 11:39:48 11/30/2019 11:54:04 [id number] Chelsey Brown [place] [address],[place] [address] 11/29/2019 11:40:23 11/29/2019 12:36:38 Gravid uterus [id number]-uix-czmjd 010768048 O26.843 Z3A.31 [id number] [facility] [address],[place] [address] 12/14/2019 17:10:22 12/18/2019 16:10:19 Routine care 877821095 Z34.92 [id number] [facility] [address],[place] [address] 12/21/2019 14:51:04 12/21/2019 15:48:18 Uterine size for dates discrepancy 950925961 O26.843 Z3A.34 [id number] [facility] [address],[place] [address] 01/22/2020 14:08:40 01/22/2020 15:01:09 state 48201970 Z39.2 Contracept ion care management 361899741 Z30.9 [id number] [facility] [address],[place] [address] 04/18/2020 10:47:47 04/18/2020 11:28:48 Surveillance of oral contraception 238396109 Z30.41 [id number] [facility] [address],[place] [address] 07/15/2020 14:34:57 07/15/2020 15:13:42 Gynecologic examination 17514768 Z01.419 Contracept ion care management 982248380 Z30.9 [id number] Sarah Yee MD [place] [address],[place] [address] 08/25/2021 16:06:40 08/25/2021 16:52:21 Gynecologic examination 69751807 Z01.419 [id number] Sarah Yee MD [place] [address],[place] [address] 09/26/2021 14:49:27 09/26/2021 16:21:17 Screening procedure 15507188 Z13.9 Atypical s quamous cells on cervical Papanicolaou smear cannot exclude high grade squamous intraepithelial lesion 169318978 R87.611 [id number] Sarah Yee MD [place] [address],[place] [address] 11/03/2021 14:09:05 11/04/2021 15:34:37 Cervical intraepithelial neoplasia grade III with severe dysplasia 798690205 D06.9 Preoperative state 99676 002 Z78.9 [id number] MD Jazzy Faye [address],[place] [address] 11/28/2021 15:20:33 11/28/2021 16:31:12 Screening procedure 51222244 Z13.9 Cervical intraepithelial neoplasia grade III with severe dysplasia 455407444 D06.9 [id number] Sarah Yee MD [place] [address],[place] [address] 12/03/2021 16:23:08 12/03/2021 17:08:29 Cervical intraepithelial neoplasia grade III with severe dysplasia 225234649 D06.9 History of loop electrosurgical excision procedure 1211340746 9102 Z98.890 [id number] Sarah Yee MD [place] [address],[place] [address] 12/23/2021 16:14:45 12/23/2021 17:40:19 History of loop electrosurgical excision procedure 1119642132 9102 Z98.890 Cervical intraepithelial neoplasia grade III with severe dysplasia 864067565 D06.9 [id number] Helena Yates [place] [address],[place] [address] 02/11/2022 16:00:09 02/11/2022 18:40:41 Spotting per vagina in 950764223 O26.859 Z3A.09 [id number] Shanti Estradaluke [place] [address],[place] [address] 03/02/2022 13:56:53 03/02/2022 14:44:20 Missed miscarriage 10721206 O02.1 Elective t ermination of 51370281 Z33.2 [id number] Kimberly Rojas [facility] [address],[place] [address] 05/07/2022 16:37:34 05/08/2022 16:10:17 Abnormal cervical Papanicolaou smear 685088670 R87.619 Health Concerns Section Related Observation LastModified by Organization Detai ls LastModified Time None Recorded Concern Status LastModified by Organization Details LastModified Time None Recorded Advance Directives Directive None Recorded Payers Encounter Date Sequence Insurance Name Policy Number Policy [place]ough[place] Covered Member ID [place] Member ID Guarantor Name 12/03/2021 1 [facility] Siri Nix [id number] Siri Nix 12/23/2021 1 [facility] Siri Nix [id number] Siri Nix 02/11/2022 1 [facility] - [employer]EF[employer] MANAGEMENT Siri Nix [id number] Siri Nix 03/02/2022 1 [facility] [employer] Siri Nix [id number] Siri Nix 05/07/2022 1 [facility] [employer] Siri Nix [id number] Siri Nix Notes Date Note Type Note Provider Name and Address Organization Details Recorded Time 12/03/2021 text/html leep 5 d ago. Bryant toi eaasy recovery. no cramping, only spotting,. no fever. Sarah Yee MD [address], [place], [address], [facility] 12/03/2021 17:05:14 12/23/2021 text/html LEEP 11/28. amy chávez, no concerns. Sarah Yee MD [address], [place], [address], [facility] 12/23/2021 16:31:38 03/02/2022 text/html Termination on 02-13. Bleeding has subsided. No pain, fever or flu like symptoms. Pt feeling very good. Shanti viera, [facility] 03/02/2022 14:32:33 05/07/2022 text/html Here today for r /p yearly Pap/HPV testingColpo 2021 HGSILPap/hpv 2021 ASCUS/+HR HPV/+HPV#16 Kimberly Rojas, [facility] [address], [place], [address], [facility] 05/08/2022 14:01:07 OBGyn Episode Ob Episode Information Episode Created Date Number of Fetuses Patient Bloodtype Patient rh Status Prepregnancy Weight lbs Domestic Partner Domestic Partner Phone Father Name Counselor Supervisor Status 06/07/19 20 1 CLOSED Fetus Data First Name Last Name Admitted to NICU Weight (g) Sex Living Outcome Pediatric Complications Fetus ID Race Codes Race Delivery Type , Spontane ous [id number] Panfilo Calculation PANFILO Calculation Method Initial Panfilo Date Initial Exam Date Initial Exam Provider Initial Ultrasound Date Last Menstrual Period Date Ultra Sound Weeks Gestation Conception by IVF Embryo Age at Transfer Date of Transfer 0 Eighteen To Twenty Week Panfilo Update Ultra Sound Date Fundal Height At Umbil Quickening Date Ultra Sound Latest Weeks Gestation Final Panfilo Confirmed By Final Panfilo Confirmed Date Final Panfilo Date Ultra Sound Latest Days Gestation 0 0 Menstrual History Last Menstrual Date Menses Monthly On Bcp Conception Prior Menses Frequency Hcg Plus Date Menarche Onset Age Delivery Information Delivery Date Delivery Type Labor Anesthesia Weeks Gestation Incision Type Labor Labor Length Hrs Delivered By Post Complications Tubal Sterilization Discharge Date Comments 8 2018 miscarria ge Discharge Information Feeding Method Contraceptive Method Maternal HG B and HCT Levels Ob Episode Information Episode Created Date Number of Fetuses Patient Bloodtype Patient rh Status Prepregnancy Weight lbs Domestic Partner Domestic Partner Phone Father Name Counselor Supervisor Status 07/14/19 20 1 O Positive 191 CLOSED Fetus Data First Name Last Name Admitted to NICU Weight (g) Sex Living Outcome Pediatric Complications Fetus ID Race Codes Race Delivery Type 2636.50 35 M Prematur e 2010 Vaginal Delivery Problems Problem Notes Problem Name Start Date End Date Resolution Snomed Code Not e Smoker [id number] Large for gestation age fetus [id number] [place] Itching [id number] feet - lab s WNL Panfilo Calculation PANFILO Calculation Method Initial Panfilo Date Initial Exam Date Initial Exam Provider Initial Ultrasound Date Last Menstrual Period Date Ultra Sound Weeks Gestation Conception by IVF Embryo Age at Transfer Date of Transfer 01/27/20 20 07/14/19 20 06/07/2019 04/06/2019 6 Eighteen To Twenty Week Panfilo Update Ultra Sound Date Fundal Height At Umbil Quickening Date Ultra Sound Latest Weeks Gestation Final Panfilo Confirmed By Final Panfilo Confirmed Date Final Panfilo Date Ultra Sound Latest Days Gestation 0 [email or web address] 07/14/2019 01/27/20 20 0 Pre-cheyenne Flowsheet Flowsheet Date 07/14/2019 Bliss Score Blood Edema Fundus Height Fundus Units Glucose Ketones Leukocytes Nitrite Labor Signs Protein Cervic Dilation Cervic Effacement Cervic Station Type Weight in lbs Pre/Post Dialysis Refused BP Diastolic BP Location Tested BP Systolic BP Type Fetus Heart Rate Present Fetus Movement Comments Flowsheet Date 07/14/2019 Bliss Score Blood Edema Fundus Height Fundus Units Glucose Ketones Leukocytes Nitrite Labor Signs Protein Cervic Dilation Cervic Effacement Cervic Station 12 trace Type Weight in lbs Pre/Post Dialysis Refused Weight 191.697100846457 BP Diastolic BP Location Tested BP Systolic BP Type 91 134 Fetus Heart Rate Present A 165 Fetus Movement A No Comments this patient is a 33-year-ol d 2 para 0 at 14 weeks gestation. She has no risk factors for this . She has a previous 1st trimester miscarriage. Flowsheet Date 07/20/2019 Bliss Score Blood Edema Fundus Height Fundus Units Glucose Ketones Leukocytes Nitrite Labor Signs Protein Cervic Dilation Cervic Effacement Cervic Station Type Weight in lbs Pre/Post Dialysis Refused BP Diastolic BP Location Tested BP Systolic BP Type Fetus Heart Rate Present Fetus Movement Comments Flowsheet Date 08/10/2019 Bliss Score Blood Edema Fundus Height Fundus Units Glucose Ketones Leukocytes Nitrite Labor Signs Protein Cervic Dilation Cervic Effacement Cervic Station Type Weight in lbs Pre/Post Dialysis Refused BP Diastolic BP Location Tested BP Systolic BP Type Fetus Heart Rate Present Fetus Movement Comments Flowsheet Date 08/18/2019 Bliss Score Blood Edema Fundus Height Fundus Units Glucose Ketones Leukocytes Nitrite Labor Signs Protein Cervic Dilation Cervic Effacement Cervic Station 16 trace Type Weight in lbs Pre/Post Dialysis Refused Weight 196.170929627313 BP Diastolic BP Location Tested BP Systolic BP Type 79 115 Fetus Heart Rate Present A 145 Fetus Movement A No Comments Flowsheet Date 09/14/2019 Bliss Score Blood Edema Fundus Height Fundus Units Glucose Ketones Leukocytes Nitrite Labor Signs Protein Cervic Dilation Cervic Effacement Cervic Station 24 Type Weight in lbs Pre/Post Dialysis Refused Weight 203.49173296995 BP Diastolic BP Location Tested BP Systolic BP Type 84 R arm 121 sitting Fetus Heart Rate Present A 135 Fetus Movement A Yes Comments Pt did not have baseline sue macy scheduled. I would like done rodger. Occasional sinus headaches d/t allergies. Pt can take claritin or zyrtec during the day and benadryl at night on occasion. Recommended pepcid for acid reflux. Flowsheet Date 09/15/2019 Bliss Score Blood Edema Fundus Height Fundus Units Glucose Ketones Leukocytes Nitrite Labor Signs Protein Cervic Dilation Cervic Effacement Cervic Station Type Weight in lbs Pre/Post Dialysis Refused BP Diastolic BP Location Tested BP Systolic BP Type Fetus Heart Rate Present Fetus Movement Comments Flowsheet Date 10/12/2019 Bliss Score Blood Edema Fundus Height Fundus Units Glucose Ketones Leukocytes Nitrite Labor Signs Protein Cervic Dilation Cervic Effacement Cervic Station neg none 23 trace Type Weight in lbs Pre/Post Dialysis Refused Weight 209.270749122061 BP Diastolic BP Location Tested BP Systolic BP Type 90 134 Fetus Heart Rate Present A 160 Fetus Movement A Yes Comments patient is having itchy feet , BH contractions, round ligament and back pain, rpt bp 128/78, will draw labs today, precautions reviewed plan gct at next visit Flowsheet Date 11/13/2019 Bliss Score Blood Edema Fundus Height Fundus Units Glucose Ketones Leukocytes Nitrite Labor Signs Protein Cervic Dilation Cervic Effacement Cervic Station 33 Type Weight in lbs Pre/Post Dialysis Refused Weight 215.649561297764 BP Diastolic BP Location Tested BP Systolic BP Type 89 R arm 119 sitting Fetus Heart Rate Present A 145 Fetus Movement A Yes Comments LGA - US Flowsheet Date 11/29/2019 Bliss Score Blood Edema Fundus Height Fundus Units Glucose Ketones Leukocytes Nitrite Labor Signs Protein Cervic Dilation Cervic Effacement Cervic Station Type Weight in lbs Pre/Post Dialysis Refused BP Diastolic BP Location Tested BP Systolic BP Type Fetus Heart Rate Present Fetus Movement Comments Flowsheet Date 11/29/2019 Bliss Score Blood Edema Fundus Height Fundus Units Glucose Ketones Leukocytes Nitrite Labor Signs Protein Cervic Dilation Cervic Effacement Cervic Station trace 33 neg Type Weight in lbs Pre/Post Dialysis Refused Weight 216.766974657449 BP Diastolic BP Location Tested BP Systolic BP Type 76 L arm 109 sitting Fetus Heart Rate Present A 143 Fetus Movement A Yes Comments Growth u/s today. Will await recommendations. Encouraged to schedule pre admit and to get flu & tdap vaccines. Flowsheet Date 12/14/2019 Bliss Score Blood Edema Fundus Height Fundus Units Glucose Ketones Leukocytes Nitrite Labor Signs Protein Cervic Dilation Cervic Effacement Cervic Station 37 trace Type Weight in lbs Pre/Post Dialysis Refused Weight 221.387115367875 BP Diastolic BP Location Tested BP Systolic BP Type 83 L arm 119 sitting Fetus Heart Rate Present A 139 Fetus Movement A Yes Comments S>D will schedule another gr owth u/s in 1 week. Will call to schedule pre admit. Labor precautions. Flowsheet Date 12/21/2019 Bliss Score Blood Edema Fundus Height Fundus Units Glucose Ketones Leukocytes Nitrite Labor Signs Protein Cervic Dilation Cervic Effacement Cervic Station Type Weight in lbs Pre/Post Dialysis Refused BP Diastolic BP Location Tested BP Systolic BP Type Fetus Heart Rate Present Fetus Movement Comments Menstrual History Last Menstrual Date Menses Monthly On Bcp Conception Prior Menses Frequency Hcg Plus Date Menarche Onset Age 0204/06/2019 Genetic Screening And Infection History Question Response Note Mental Retardation/Autism false Patient's Age Will Be 35 Years Or Older At Estim ated Date of Delivery false Thalassemia (Bolivian, Egyptian, Mediterranean, Or Background): MCV < 80 false Neural Tube Defect (Meningomyelocele, Spina Bifi da, Or Anencephaly) false Congenital Heart Defect false Down Syndrome false Esa-Sachs (eg, Jainism, Cajun, Swedish-Liberian) f alse Compa Disease false Sickle Cell Disease Or Trait () false Hemophilia Or Other Blood Disorders false Muscular Dystrophy false Cystic Fibrosis false Axson's Chorea false Intellectual Disability/Autism false If Yes, Was Person Tested For Fragile X? false Other Inherited Genetic Or Chromosomal Disorder false Maternal Metabolic Disorder (eg, Type 1 Diabetes , PKU) false Patient Or Baby's Father Had A Child With Defects Not Listed Above false Recurrent Loss, Or A Stillbirth false Medications (including Suppl ements, Vitamins, Herbs, OTC Drugs), Illicit/Recreational Drugs, Alcohol false If Yes, Agent(s) And Strength/Dosage false Any Other Genetic History false Live With Someone With TB Or Exposed To TB false Patient Or Partner Has History Of Genital Herpes false Rash Or Viral Illness Since Last Menstrual Perio d false History Of STD, Gonorrhea, Chlamydia, HPV, Syphi lis false Other Infection History false History of HIV false History of Hepatitis false Prior GBS-infected child false Hemoglobinopathy Or Carrier false Other Structural Defect false Recent Travel History Outside of Country false Delivery Information Delivery Date Delivery Type Labor Anesthesia Weeks Gestation Incision Type Labor Labor Length Hrs Delivered By Post Complications Tubal Sterilization Discharge Date Comments 0 None 35.2 Shanti Rivera CNM labor and delivery Discharge Information Feeding Method Contraceptive Method Maternal HG B and HCT Levels Ob Episode Information Episode Created Date Number of Fetuses Patient Bloodtype Patient rh Status Prepregnancy Weight lbs Domestic Partner Domestic Partner Phone Father Name Counselor Supervisor Status 01/03/20 20 1 DELETED Panfilo Calculation PANFILO Calculation Method Initial Panfilo Date Initial Exam Date Initial Exam Provider Initial Ultrasound Date Last Menstrual Period Date Ultra Sound Weeks Gestation Conception by IVF Embryo Age at Transfer Date of Transfer 0 Eighteen To Twenty Week Panfilo Update Ultra Sound Date Fundal Height At Umbil Quickening Date Ultra Sound Latest Weeks Gestation Final Panfilo Confirmed By Final Panfilo Confirmed Date Final Panfilo Date Ultra Sound Latest Days Gestation 0 0 Menstrual History Last Menstrual Date Menses Monthly On Bcp Conception Prior Menses Frequency Hcg Plus Date Menarche Onset Age Delivery Information Delivery Date Delivery Type Labor Anesthesia Weeks Gestation Incision Type Labor Labor Length Hrs Delivered By Post Complications Tubal Sterilization Discharge Date Comments 0 35.2 Discharge Information Feeding Method Contraceptive Method Maternal HG B and HCT Levels Ob Episode Information Episode Created Date Number of Fetuses Patient Bloodtype Patient rh Status Prepregnancy Weight lbs Domestic Partner Domestic Partner Phone Father Name Counselor Supervisor Status 03/02/19 23 1 CLOSED Fetus Data First Name Last Name Admitted to NICU Weight (g) Sex Living Outcome Pediatric Complications Fetus ID Race Codes Race Delivery Type , Spontane ous [id number] Panfilo Calculation PANFILO Calculation Method Initial Panfilo Date Initial Exam Date Initial Exam Provider Initial Ultrasound Date Last Menstrual Period Date Ultra Sound Weeks Gestation Conception by IVF Embryo Age at Transfer Date of Transfer 0 Eighteen To Twenty Week Panfilo Update Ultra Sound Date Fundal Height At Umbil Quickening Date Ultra Sound Latest Weeks Gestation Final Panfilo Confirmed By Final Panfilo Confirmed Date Final Panfilo Date Ultra Sound Latest Days Gestation 0 0 Menstrual History Last Menstrual Date Menses Monthly On Bcp Conception Prior Menses Frequency Hcg Plus Date Menarche Onset Age Delivery Information Delivery Date Delivery Type Labor Anesthesia Weeks Gestation Incision Type Labor Labor Length Hrs Delivered By Post Complications Tubal Sterilization Discharge Date Comments 3 Discharge Information Feeding Method Contraceptive Method Maternal HG B and HCT Levels
--- OUTSIDE RECORDS SUMMARY | 2024-02-05 16:55 | XMS_ITS | Encounter Summary ---
Author Organization [facility] Address [address] [place] [address] Care Team Providers Care Manager Digital Name Role Phone Unavailable Primary Care Provider Unavailabl e Reason for Visit * Reason Comments Cough Congestion Chills Runny Nose Encounter Details Date Type Department Care Team (Late st Contact Info) Description 02/05/2017 4:20 PM HEALTH SOCIAL WORK PROFESSOR Office Visit [facility] AT [address] [phone] Provider, Debbie Ashford Strong Viral URI with cough (Primary Dx) Social History Tobacco Use Types Packs/Day Years Used Date Smoking Tobacco: Every Day Cigarettes Smokeless Tobacco: Never Sex and Gender Information Value Date Recorded Sex Assigned at Not on file Gender Identity Not on file Sexual Orientation Not on file documented as of this encounter Last Filed Vital Signs Vital Sign Reading Time Taken Comments Blood Pressure 120/82 02/05/2017 4:26 PM HEALTH SOCIAL WORK PROFESSOR Pulse 98 02/05/2017 4:26 PM HEALTH SOCIAL WORK PROFESSOR Temperature 36.8 ??C (98.2 ??F) 02/05/2017 4:26 PM CS T Respiratory Rate 18 02/05/2017 4:26 PM HEALTH SOCIAL WORK PROFESSOR Oxygen Saturation 96% 02/05/2017 4:26 PM HEALTH SOCIAL WORK PROFESSOR Inhaled Oxygen Concentration - - Weight 78.3 kg (172 lb 9.6 oz) 02/05/2017 4:26 P M HEALTH SOCIAL WORK PROFESSOR Height 157.5 cm (5' 2 ) 02/05/2017 4:26 PM HEALTH SOCIAL WORK PROFESSOR Body Mass Index 31.57 02/05/2017 4:26 PM HEALTH SOCIAL WORK PROFESSOR documented in this encounter Patient Instructions * Patient Instructions* Enid Hobson APRN-ROCK PICKER - 02/05/2017 4:38 PM HEALTH SOCIAL WORK PROFESSOR Upper Respiratory Infection WHAT YOU NEED TO KNOW: What is an upper respiratory infection? An upper respiratory infection is also called a common cold. It can affect your nose, throat, ears, and sinuses. What causes a cold? The common cold is caused by a virus. There are many different cold viruses, and each is contagious. This means it can be easily spread to another person when the sick person coughs or sneezes. It can also be spread if you touch something that a person with a cold has touched. You are more likely to get a cold in the winter. Your risk of getting a cold may be increased if you smoke cigarettes or have allergies, such as hay fever. What are the signs and symptoms of a cold? Cold symptoms are usually worst for the first 3 to 5 days. You may have any of the following: ?? Runny or stuffy nose ?? Sneezing and coughing ?? Sore throat or hoarseness ?? Red, watery, and sore eyes ?? Fatigue ?? Chills and fever ?? Headache, body aches, or sore muscles How is a cold treated? There is no cure for the common cold. Colds are caused by viruses and do notget better with antibiotics. Most people get better in 7 to 14 days. You may continue to cough for 2 to 3 weeks. The following may help decrease your symptoms: ?? Decongestants help reduce nasal congestion and help you breathe more easily. If you take decongestant pills, they may make you feel restless or not able to sleep. Do not use decongestant sprays for more than a few days. ?? Cough suppressants help reduce coughing. Ask your healthcare provider which type of cough medicine is best for you. ?? NSAIDs , such as ibuprofen, help decrease swelling, pain, and fever. NSAIDs can cause stomach bleeding or kidney problems in certain people. If you take blood thinner medicine, always ask your healthcare provider if NSAIDs are safe for you. Always read the medicine label and follow directions. ?? Acetaminophen decreases pain and fever. It is available without a doctor's order. Ask how much to take and how often to take it. Follow directions. Acetaminophen can cause liver damage if not taken correctly. How can I manage my cold? ?? Use a humidifier or vaporizer. Use a cool mist humidifier or a vaporizer to increase air moisture in your home. This may make it easier for you to breathe and help decrease your cough. ?? Gargle with warm salt water to help your sore throat feel better. Make salt water by adding ?? teaspoon salt to 1 cup warm water. Throat lozenges or spray may also help to relieve a sore throat. ?? Use saline nasal drops to help relieve your congestion. ?? Drink liquids as directed. Liquids help keep your air passages moist and help you cough up mucus. Ask how much liquid to drink each day and which liquids are best for you. ?? Rest as much as possible. Slowly start to do more each day. When should I seek immediate care? ?? You have severe headaches, a stiff neck, or eye pain when you look at bright light. ?? You have chest pain or trouble breathing. When should I contact my healthcare provider? ?? You have a fever over 102??F (39??C). ?? Your sore throat gets worse or you see white or yellow spots in your throat. ?? Your symptoms get worse after 3 to 5 days or your cold is not better in 14 days. ?? You have a rash anywhere on your skin. ?? You have large, tender lumps in your neck. ?? You have thick, green or yellow drainage from your nose. ?? You cough up thick yellow, green, serrano, or bloody mucus. ?? You have vomiting for more than 24 hours and cannot keep fluids down. ?? You have a bad earache. ?? You have questions or concerns about your condition or care. CARE AGREEMENT: You have the right to help plan your care. Learn about your health condition and how it may be treated. Discuss treatment options with your caregivers to decide what care you want to receive. You always have the right to refuse treatment. The above information is an educational director only. It is not intended as medical advice for individual conditions or treatments. Talk to your doctor, nurse or pharmacist before following any medical regimen to see if it is safe and effective for you. ?? 2016 [employer]. Information is for End User's use only and may not be sold, redistributed or otherwise used for commercial purposes. All illustrations and images included in CareNotes?? are the copyrighted property of [employer] or [employer]. TH SOCIAL WORK PROFESSOR documented in this encounter Progress Notes * Enid Hobson APRN-CNP - 02/05/2017 4:29 PM CST [facility] iSri Nix is a 31 year old female, new patient, who presents to the [facility] with complaints of: Chief Complaint Patient presents with ??? Cough ??? Congestion ??? Chills ??? Runny Nose SUBJECTIVE: General The history is provided by the patient. This is a new problem. The current episode started 2 days ago. The problem occurs constantly. The problem has been gradually worsening. The pain is at a severity of 3/10 (at worst, 8/10). Body Location: generalized body aches.Associated symptoms comments: Nasal congestion, productive cough with minimal amount of clear sputum, sore throat, bilateral ear pain, runny nose, body aches, and chills. Patient states she is not sure if she has had a fever. Patientdenies trismus, trouble swallowing saliva, neck pain, excessive drooling, shortness of breath, chest pain, wheezing, or n/v/d. Patient is drinking plenty of fluids. Nothing aggravates the symptoms. The symptoms are relieved by medication. Treatments tried: Dayquil and Nyquil, which has helped with symptoms. Patient has been around people at work with influenza B. Patient states she did not get the flu shot this season. Past Medical History: Diagnosis Date ??? No known health problems No current outpatient prescriptions on file prior to visit. No current facility-administered medications on file prior to visit. Past Surgical History: Procedure Laterality Date ??? Issue Tooth Extraction Social History Social History ??? Marital status: [...] ??? Not on file Social History Narrative ??? No narrative on file Family History Problem Relation Age of Onset ??? Dementia Maternal Grandmother ??? Cancer - Skin, Non Melanoma Maternal Grandfather ??? Dementia Maternal Grandfather ??? Cancer - Colon Paternal Grandfather ??? Dementia Paternal Grandfather No current outpatient prescriptions on file. No current facility-administered medications for this visit. Allergies Allergen Reactions ??? Sulfa Drugs Urticaria REVIEW OF SYSTEMS: Review of Systems Constitutional: Positive for chills. HENT: Positive for congestion, ear pain and sore throat. Eyes: Negative. Respiratory: Positive for cough and sputum production. Cardiovascular: Negative. Musculoskeletal: Positive for myalgias. Neurological: Negative. OBJECTIVE: General appearance: alert, well appearing, and in no distress. BP 120/82 (BP SITE: LEFT ARM, BP POSITION: SITTING, BP CUFF SIZE: Adult) Pulse 98 Temp 98.2 ??F (Oral) Resp 18 Ht 1.575 m (5' 2 ) Wt 78.3 kg (172 lb 9.6 oz) SpO2 96% BMI 31.57 kg/m2 Physical Exam Constitutional: She is oriented to person, place, and time and well-developed, well-nourished, and in no distress. Vital signs are normal. HENT: Right Ear: Hearing, external ear and ear canal normal. Tympanic membrane is bulging. Tympanic membrane is not erythematous. A middle ear effusion is present. Left Ear: Hearing, external ear and ear canal normal. Tympanic membrane is bulging. Tympanic membrane is not erythematous. A middle ear effusion is present. Nose: Mucosal edema and rhinorrhea present. Right sinus exhibits no maxillary sinus tenderness and no frontal sinus tenderness. Left sinus exhibits no maxillary sinus tenderness and no frontal sinus tenderness. Mouth/Throat: Uvula is midline and mucous membranes are normal. No trismus in the jaw. No uvula swelling. Posterior oropharyngeal erythema (mild) present. No oropharyngeal exudate, posterior oropharyngeal edema or tonsillar abscesses. Eyes: Conjunctivae and lids are normal. Pupils are equal, round, and reactive to light. Neck: Normal range of motion. Neck supple. Cardiovascular: Normal rate, regular rhythm, S1 normal, S2 normal, normal heart sounds and normal pulses. Exam reveals no gallop and no friction rub. No murmur heard. Pulmonary/Chest: Effort normal and breath sounds normal. She has no decreased breath sounds. She has no wheezes. She has no rhonchi. She has no rales. Abdominal: Soft. Normal appearance and bowel sounds are normal. There is no tenderness. Lymphadenopathy: No head, cervical, axillary, or supraclavicular adenopathy. Neurological: She is alert and oriented to person, place, and time. Skin: Skin is warm, dry and intact. Psychiatric: Affect and judgment normal. Nursing note and vitals reviewed. ASSESSMENT: Office Visit on 02/05/17 INFLUENZA A+B - POINT OF CARE (AMB) Result Value Ref Range Influenza A Ag Negative Negative Influenza B Ag Negative Negative Influenza Control Present NEGATIVE - POSITIVE Influenza Lot# [id number] Influenza Expir Date 10/01/18 Encounter Diagnosis Name Primary? Viral URI with cough Yes PLAN: Orders Placed This Encounter ??? INFLUENZA A+B - POINT OF CARE (AMB) Discussed dx and treatment of URI with patient Discussed viral vs bacterial infections Discussed importance of avoiding unnecessary antibiotic use Increase fluid intake and rest Steam inhalation and warm compresses may help with sinus pressure Alt tylenol and motrin every 3-4 hours as needed for pain/fever OTC antihistamine of choice per label directions. Flonase 2 sprays in each nostril daily to help with nasal congestion and post nasal drainage Can continue to use Dayquil during the day and Nyquil at night for cough If not being treated for high blood pressure, may take sudafed per label directions. ?? otc saline nasal spray per label directions for sinus pressure and nasal stuffiness. ?? Can use of a cool mist humidifier or a vaporizer to increase air moisture in home or can breath moist air from warm shower to help with breathing and cough.. F/u with PCP if symptoms worsen or do not improve Go to the ER if having uncontrolled fever with headache and stiff neck, respiratory difficulty, uncontrollable fever, or increase in severity of symptoms. TH SOCIAL WORK PROFESSOR documented in this encounter Plan of Treatment Not on file documented as of this encounter Procedures Procedure Name Priority Date/Time Associated Diagnosis Comments INFLUENZA A+B - POINT OF CARE (AMB) Routine 02/05/2017 Viral URI with cough documented in this encounter Results * INFLUENZA A+B - POINT OF CARE (AMB) (02/05/2017) Influenza A Antigen Rapid Negative Negative Influenza B Antigen Rapid Negative Negative Influenza Internal Control Present NEGATIVE - POSITIVE Influenza Lot Number [id number] Influenza Expiration Date 10/01/18 Other NASOPHARYNGEAL SWAB / Unknown 02/05/2017 Enid Hobson ELECTRICIAN MARINE-[facility] - POINT OF CARE ORDERABLES documented in this encounter Visit Diagnoses Diagnosis Viral URI with cough- Primary Acute upper respiratory infections of unspecified site documented in this encounter
--- OUTSIDE RECORDS SUMMARY | 2024-02-05 16:55 | XMS_ITS | Patient Health Summary ---
Author Organization [facility] Address [address] [place] [address] Care Team Providers Care Deli Cook Name Role Phone Unavailable Primary Care Provider Unavailabl e Note from [facility],non-owned Affiliates and Associated Physician Practices is amultiple site organization consisting of ambulatory clinics and hospital sitesin [place], [place], [place] and [place]. This disclosure is being madepursuant to the Care Everywhere program and may not contain all information available regarding this patient. Last updated 17.[facility] Allergies * Sulfa Drugs(Urticaria) -Medium Criticality Medications * Be aware that medications may not be up to date on this document. Alwaysverify current medications with the patient. * Cetirizine HCl (ZYRTEC PO) * Ascorbic Acid (VITAMIN C ER PO) * Multiple Vitamin (MULTI VITAMIN PO) Social History Tobacco Use Types Packs/Day Years Used Date Smoking Tobacco: Every Day Cigarettes Smokeless Tobacco: Never Sex and Gender Information Value Date Recorded Sex Assigned at Not on file Gender Identity Not on file Sexual Orientation Not on file Last Filed Vital Signs Vital Sign Reading Time Taken Comments Blood Pressure 122/80 12/16/2018 9:15 AM COMMISSIONED SECURITY OFFICER Pulse 95 12/16/2018 9:15 AM COMMISSIONED SECURITY OFFICER Temperature 37.2 ??C (99 ??F) 12/16/2018 9:15 AM COMMISSIONED SECURITY OFFICER Respiratory Rate 16 12/16/2018 9:15 AM COMMISSIONED SECURITY OFFICER Oxygen Saturation 97% 12/16/2018 9:15 AM COMMISSIONED SECURITY OFFICER Inhaled Oxygen Concentration - - Weight 90.7 kg (200 lb) 12/16/2018 9:15 AM COMMISSIONED SECURITY OFFICER Height 157.5 cm (5' 2 ) 12/16/2018 9:15 AM COMMISSIONED SECURITY OFFICER Body Mass Index 36.58 12/16/2018 9:15 AM COMMISSIONED SECURITY OFFICER Procedures * CULTURE RESPIRATORY UPPER(Performed 12/16/2018) Performed for Acute pharyngitis, unspecified etiology * STREP A SCREEN - POINT OF CARE (AMB) STL(Performed 12/16/2018) Performed for Acute pharyngitis, unspecified etiology * INFLUENZA A+B - POINT OF CARE (AMB)(Performed 11/30/2018) Performed for Strep throat * STREP A SCREEN - POINT OF CARE (AMB) STL(Performed 11/30/2018) Performed for Strep throat * STREP A SCREEN - POINT OF CARE (AMB) STL(Performed 08/30/2017) Performed for Strep pharyngitis * INFLUENZA A+B - POINT OF CARE (AMB)(Performed 02/05/2017) Performed for Viral URI with cough Results * CULTURE RESPIRATORY UPPER (12/16/2018 9:23 AM COMMISSIONED SECURITY OFFICER) Upper Respiratory Culture Final report [facility] INSURANCE BILL Result 1 [facility] INSURANCE BILL Comment:Routine respiratory yonatan Microbiology ENTIRE THROAT (SURFACE REGION OF NECK) / Unknown 12/16/2018 9:23 AM COMMISSIONED SECURITY OFFICER 12/16/2018 Narrative Resulting Agency Comment Lab Testing performed at: [facility] ??[facility]ly [facility], [facility] [phone] Real Hodge APRN-ADULT EDUCATOR LAB - MICRO BIOLOGY ORDERABLES [facility] INSURANCE BILL [address] [place] [address] * STREP A SCREEN - POINT OF CARE (AMB) STL (12/16/2018) Only the most recent of3 resultswithin the time period is included. Strep A Rapid POCT Negative Negative Strep A Internal Control Present Lot # [id number] Expiration Date [id number] Throat ENTIRE THROAT (SURFACE REGION OF NECK) / Unknown 12/16/2018 Real Hodge MANAGER OF TRAINING AND DEVELOPMENT-ADULT EDUCATOR LAB - POINT OF CARE ORDERABLES * INFLUENZA A+B - POINT OF CARE (AMB) (11/30/2018 5:02 PM CDT) Only the most recent of2 resultswithin the time period is included. Influenza A Antigen Rapid Negative Negative Influenza B Antigen Rapid Negative Negative Influenza Internal Control present NEGATIVE - POSITIVE Influenza Lot Number [id number] Influenza Expiration Date 12 21 2019 Other NASOPHARYNGEAL SWAB / Unknown 11/30/2018 5:02 PM CDT Vladimir Ashford MANAGER OF TRAINING AND DEVELOPMENT-ADULT EDUCATOR LAB - POINT OF CA RE ORDERABLES
--- OUTSIDE RECORDS SUMMARY | 2024-02-05 16:55 | XMS_ITS | Encounter Summary ---
Author Organization [facility] Address [address] [place] [address] Care Team Providers Care Logistics Planning Engineer Name Role Phone Unavailable Primary Care Provider Unavailabl e Reason for Visit * Reason Onset Date Comments Follow-up 12/02/2018 Encounter Details Date Type Department Care Team (Late st Contact Info) Description 12/02/2018 Telephone [facility] AT [address] [phone] Becky Gamino Follow-up Social History Tobacco Use Types Packs/Day Years Used Date Smoking Tobacco: Every Day Cigarettes Smokeless Tobacco: Never Sex and Gender Information Value Date Recorded Sex Assigned at Not on file Gender Identity Not on file Sexual Orientation Not on file documented as of this encounter Plan of Treatment Not on file documented as of this encounter Visit Diagnoses Not on filedocumented in this encounter
--- OUTSIDE RECORDS SUMMARY | 2024-02-05 16:55 | XMS_ITS | Encounter Summary ---
Author Organization [facility] Address [address] [place] [address] Care Team Providers Care Bushel Worker Name Role Phone Unavailable Primary Care Provider Unavailabl e Reason for Visit * Reason Onset Date Comments Follow-up 02/07/2017 Encounter Details Date Type Department Care Team (Late st Contact Info) Description 02/07/2017 Telephone [facility] [address] [phone] Lyubov Swanson Follow-up Social History Tobacco Use Types Packs/Day [...]
--- OUTSIDE RECORDS SUMMARY | 2024-02-05 16:55 | XMS_ITS | Encounter Summary ---
Author Organization [facility] Address [address] [place] [address] Care Team Providers Care Assembly Line Upholsterer Name Role Phone Unavailable Primary Care Provider Unavailabl e Reason for Visit * Reason Comments Congestion sinus pressure, ache s Cough Encounter Details Date Type Department Care Team (Late st Contact Info) Description 11/30/2018 4:40 PM CDT Office Visit [facility] [address] [phone] Provider, Debbie Exp Sanborn Strep throat (Primary Dx) Social History Tobacco Use Types Packs/Day Years Used Date Smoking Tobacco: Every Day Cigarettes Smokeless Tobacco: Never Sex and Gender Information Value Date Recorded Sex Assigned at Not on file Gender Identity Not on file Sexual Orientation Not on file documented as of this encounter Last Filed Vital Signs Vital Sign Reading Time Taken Comments Blood Pressure 126/82 11/30/2018 4:31 PM CDT Pulse 100 11/30/2018 4:31 PM CDT Temperature 37.8 ??C (100 ??F) 11/30/2018 4:31 PM CDT Respiratory Rate 16 11/30/2018 4:31 PM CDT Oxygen Saturation 98% 11/30/2018 4:31 PM CDT Inhaled Oxygen Concentration - - Weight 90.7 kg (200 lb) 11/30/2018 4:31 PM CDT Height 157.5 cm (5' 2 ) 11/30/2018 4:31 PM CDT Body Mass Index 36.58 11/30/2018 4:31 PM CDT documented in this encounter Progress Notes * Vladimir Ashford, [employer] ASSEMBLER-COLLECTION TELLER - 11/30/2018 4:58 PM CDT Subjective: Siri Nix is a 33 year old female who presents for evaluation: Chief Complaint Patient presents with ??? Congestion sinus pressure, aches ??? Cough Primary Care Physician is Alex Vaca MD. Symptoms include ear pain, sore throat, cough, nasal congestion And pt also having Ear pressure and felt feverish. Pt was at a [employer] party on Wednesday and the [employer] game on Wednesday night, no known sick contacts. Onset of symptoms was 2 days ago, gradually worsening since that time. No recent travel. She is drinking plenty of fluids. Evaluation to date: none. Treatment to date: dayquil and nyquil Allergies Allergen Reactions ??? Sulfa Drugs Urticaria Outpatient Medications Marked as Taking for the 11/30/18 encounter (Office Visit) with Provider, Debbie Mccormick Medication Sig ??? amoxicillin (AMOXIL) 875 MG tablet Take 1 tablet by mouth 2 times daily for 10 days ??? Ascorbic Acid (VITAMIN C ER PO) ??? Cetirizine HCl (ZYRTEC PO) ??? Multiple Vitamin (MULTI VITAMIN PO) Past Medical History: Diagnosis Date ??? No known health problems There is no problem list on file for this patient. Past Surgical History: Procedure Laterality Date ??? [place] Tooth Extraction Social History Socioeconomic History ??? Marital status: Single Spouse name: Not on file ??? Number of children: Not on file ??? Years of education: Not on file ??? Highest education level: Not on file Occupational History ??? Not on file Social Needs ??? Financial resource strain: Not on file ??? Food insecurity: Worry: Not on file Inability: Not on file ??? Transportation needs: Medical: Not on file Non-medical: Not on file Tobacco Use ??? Smoking status: Current Every Day Smoker Packs/day: 1.00 Types: Cigarettes ??? Smokeless tobacco: Never Used Substance and Sexual Activity ??? Alcohol use: Not on file ??? Drug use: Not on file ??? Sexual activity: Not on file Lifestyle ??? Physical activity: Days per week: Not on file Minutes per session: Not on file ??? Stress: Not on file Relationships ??? Social connections: Talks on phone: Not on file Gets together: Not on file Attends anglican service: Not on file Active member of club or organization: Not on file Attends meetings of clubs or organizations: Not on file Relationship status: Not on file ??? Intimate partner violence: Fear of current or ex partner: Not on file Emotionally abused: Not on file Physically abused: Not on file Forced sexual activity: Not on file Other Topics Concern ??? Not on file Social History Narrative ??? Not on file Medications reviewed. Review of Systems Pertinent items are noted in HPI Constitutional: Positive for feverish Eyes: Negative Ears, nose, mouth, and throat: Positive for ear pain, ear pressure, sore throat, cough, nasal congestion Respiratory: Negative Cardiovascular: Negative Gastrointestinal: Negative Hematologic/lymphatic: Negative Musculoskeletal:Negative Neurological: Negative Objective: BP 126/82 (BP SITE: LEFT ARM, BP POSITION: SITTING, BP CUFF SIZE: 12) Pulse 100 Temp 100 ??F (37.8 ??C) (Oral) Resp 16 Ht 1.575 m (5' 2 ) Wt 90.7 kg (200 lb) SpO2 98% BMI 36.58 kg/m2 Skin: Physical Exam Exam General appearance: alert, cooperative, no distress, oriented to person, place, and time, wellappearing Head: normocephalic, without trauma Eyes: sclera and conjunctiva clear, EOMI and PERRLA, lids normal Ears: canals clear, tympanic membranes normal, hearing intact to voice Nose: nares open; no septal deviation is noted, no maxillary tenderness, mucosa erythematous and swollen Throat: lips, mucosa, and tongue normal; teeth and gums normal, moderate oropharyngeal erythema, tonsillar hypertrophy 2+, exudates present, uvula midline Neck: range of motion is intact, Nodes: no cervical adenopathy Lungs: breath sounds normal and symmetric; no rales or wheezes Heart: regular rhythm, normal S1 and S2, without murmurs, gallops or rubs Neurologic: mental status normal; alert and oriented X 3; Recent Results (from the past 24 hour(s)) STREP A SCREEN - POINT OF CARE (AMB) STL Collection Time: 11/30/18 5:02 PM Result Value Ref Range Strep A Rapid POCT Positive (Abnormal) Negative Strep A Internal Control Present Lot # [id number] Expiration Date 03 10 2020 INFLUENZA A+B - POINT OF CARE (AMB) Collection Time: 11/30/18 5:02 PM Result Value Ref Range Influenza A Antigen Rapid Negative Negative Influenza B Antigen Rapid Negative Negative Influenza Internal Control present NEGATIVE - POSITIVE Influenza Lot Number [id number] Influenza Expiration Date 12 21 2019 Assessment: . Encounter Diagnoses Name Primary? Strep throat Yes Plan: Suggested symptomatic OTC remedies. Antibiotics per orders. RTC prn. Strep throat -Please take & finish all of your medications as prescribed. THIS IS VERY IMPORTANT. -You are more CONTAGIOUS to others until you have been on antibiotics for 24 hours. -Avoid sharing food/ drinks and close contact until you are less contagious -Change your toothbrush the 3rd day you are on you antibiotics -Take Tylenol (acetaminophen) or Advil/Motin (ibuprofen) as needed per package directions for aches/pains. -Frequent warm or cool liquids can be soothing. Try soups or popsicles for comfort. If you still are not having relief with the above, you can try a Magic Mouthwash -Equal parts liquid antacid (e.g.Maalox) and children's Benadryl with a couple drops of Anbesol gargle and spit every 3-4 hours as needed. If you are not improving or worsening in the next 3-5 days you must RETURN to the clinic, go to your PCP, or Urgent Care/ER to be SEEN and reevaluated. No further prescriptions or refills will be given by phone without another evaluation. -Drink plenty of fluids and get plenty of rest -You can take an over the counter decongestant and/or antihistamine daily (per package directions) such as Zyrtec-D -You can take Tylenol or ibuprofen as needed for fever or pain (per package directions) Orders Placed This Encounter ??? STREP A SCREEN - POINT OF CARE (AMB) STL ??? INFLUENZA A+B - POINT OF CARE (AMB) ??? amoxicillin (AMOXIL) 875 MG tablet Sig: Take 1 tablet by mouth 2 times daily for 10 days Dispense: 20 tablet Refill: 0 Continue to follow up with Alex Vaca MD as directed. After Visit Summary reviewed with patient. The patient indicates understanding of these issues and agrees with the plan. Patient discharged to Home .Vladimir Ashford, LATASHA-JEFF 11/30/2018 5:20 PM documented in this encounter Plan of Treatment Not on file documented as of this encounter Procedures Procedure Name Priority Date/Time Associated Diagnosis Comments STREP A SCREEN - POINT OF CARE (AMB) STL Routine 11/30/2018 5:02 PM CDT Strep throat INFLUENZA A+B - POINT OF CARE (AMB) Routine 11/30/2018 5:02 PM CDT Strep throat documented in this encounter Results * INFLUENZA A+B - POINT OF CARE (AMB) (11/30/2018 5:02 PM CDT) Influenza A Antigen Rapid Negative Negative Influenza B Antigen Rapid Negative Negative Influenza Internal Control present NEGATIVE - POSITIVE Influenza Lot Number [id number] Influenza Expiration Date 12 21 2019 Other NASOPHARYNGEAL SWAB / Unknown 11/30/2018 5:02 PM CDT [facility] - POINT OF CA RE ORDERABLES * (ABNORMAL) STREP A SCREEN - POINT OF CARE (AMB) STL (11/30/2018 5:02 PM CDT) Strep A Rapid POCT Positive(A) Negative Strep A Internal Control Present Lot # [id number] Expiration Date 03 10 2020 Throat ENTIRE THROAT (SURFACE REGION OF NECK) / Unknown 11/30/2018 5:02 PM CDT Vladimir [facility] - POINT OF CA RE ORDERABLES documented in this encounter Visit Diagnoses Diagnosis Strep throat- Primary Streptococcal sore throat documented in this encounter
--- OUTSIDE RECORDS SUMMARY | 2024-02-05 16:55 | XMS_ITS | Clinical Summary ---
Author Organization [facility] [employer] Address [address] [place] [address] Care Team Providers Care Production Lead Name Role Phone Unavailable Primary Care Provider Unavailabl e Source Comments [facility] [employer],non-owned Affiliates and Associated Physician Practices is amultiple site organization consisting of ambulatory clinics and hospital sitesin [place], [place], [place] and [place]. This disclosure is being madepursuant to the Care Everywhere program and may not contain all information available regarding this patient. Last updated 17.[facility] [employer] Allergies Active Allergy Reactions Criticality Noted Date Comments Sulfa Drugs Urticaria Medium 02/05/2017 Medications * Be aware that medications may not be up to date on this document. Alwaysverify current medications with the patient. Medication Sig Dispensed Refills Start Date End Date Status Cetirizine HCl (ZYRTEC PO) Active Ascorbic Acid (VITAMIN C ER PO) Active Multiple Vitamin (MULTI VITAMIN PO) Active Family History Medical History Relation Name Comments Cancer - Skin, Non Melanoma Maternal Grandfather Dementia Maternal Grandfather Dementia Maternal Grandmother Cancer - Colon Paternal Grandfather Dementia Paternal Grandfather Relation Name Status Comments Maternal Grandfather Maternal Grandmother Paternal Grandfather Social History Tobacco Use Types Packs/Day Years Used Date Smoking Tobacco: Every Day Cigarettes Smokeless Tobacco: Never Sex and Gender Information Value Date Recorded Sex Assigned at Not on file Gender Identity Not on file Sexual Orientation Not on file Last Filed Vital Signs Vital Sign Reading Time Taken Comments Blood Pressure 122/80 12/16/2018 9:15 AM PAD MACHINE OPERATOR Pulse 95 12/16/2018 9:15 AM PAD MACHINE OPERATOR Temperature 37.2 ??C (99 ??F) 12/16/2018 9:15 AM PAD MACHINE OPERATOR Respiratory Rate 16 12/16/2018 9:15 AM PAD MACHINE OPERATOR Oxygen Saturation 97% 12/16/2018 9:15 AM PAD MACHINE OPERATOR Inhaled Oxygen Concentration - - Weight 90.7 kg (200 lb) 12/16/2018 9:15 AM PAD MACHINE OPERATOR Height 157.5 cm (5' 2 ) 12/16/2018 9:15 AM PAD MACHINE OPERATOR Body Mass Index 36.58 12/16/2018 9:15 AM PAD MACHINE OPERATOR Plan of Treatment Health Maintenance Due Date Last Done Comments PAP SMEAR 1985 PNEUMOCOCCAL VACCINE (1 of 2 - PCV) 09/16/1993 HIV SCREENING 09/16/2002 HEPATITIS C SCREENING 09/12/2005 DTAP/TDAP/TD VACCINES (1 - Tdap) 09/16/2006 HEPATITIS B VACCINE (1 of 3 - 19+ 3-dose series) 09/16/2006 DEPRESSION SCREENING 02/08/2023 COVID-19 VACCINE (1 - 2023-2 5 season) 2023 INFLUENZA VACCINE (#1) 2023 ZOSTER VACCINE (1 of 2) 09/16/2037 HIB VACCINE Aged Out No longer eligi ble based on patient's age to complete this topic HPV VACCINE Aged Out No longer eligi ble based on patient's age to complete this topic MENINGOCOCCAL VACCINE Aged Out No damian david eligible based on patient's age to complete this topic Siri Nix Personal/Family Self 1985 [address] [place] [id number]
--- OUTSIDE RECORDS SUMMARY | 2024-02-05 16:55 | XMS_ITS | Referral Summary ---
Author Organization [facility] [employer] Address [address] [place] [address] Care Team Providers Care Windows Vmware Engineer Name Role Phone Unavailable Primary Care Provider Unavailabl e Source Comments [facility],non-owned Affiliates and Associated Physician Practices is amultiple site organization consisting of ambulatory clinics and hospital sitesin [place], [place], [place] and [place]. This disclosure is being madepursuant to the Care Everywhere program and may not contain all information available regarding this patient. Last updated 17.[facility] [employer] Allergies Active Allergy Reactions Criticality Noted Date Comments Sulfa Drugs Urticaria Medium 02/05/2017 Medications * Be aware that medications may not be up to date on this document. Alwaysverify current medications with the patient. Medication Sig Dispensed Refills Start Date End Date Status Cetirizine HCl (ZYRTEC PO) Active Ascorbic Acid (VITAMIN C ER PO) Active Multiple Vitamin (MULTI VITAMIN PO) Active Social History Tobacco Use Types Packs/Day Years Used Date Smoking Tobacco: Every Day Cigarettes Smokeless Tobacco: Never Sex and Gender Information Value Date Recorded Sex Assigned at Not on file Gender Identity Not on file Sexual Orientation Not on file Last Filed Vital Signs Vital Sign Reading Time Taken Comments Blood Pressure 122/80 12/16/2018 9:15 AM HISTOLOGY TEACHER Pulse 95 12/16/2018 9:15 AM HISTOLOGY TEACHER Temperature 37.2 ??C (99 ??F) 12/16/2018 9:15 AM HISTOLOGY TEACHER Respiratory Rate 16 12/16/2018 9:15 AM HISTOLOGY TEACHER Oxygen Saturation 97% 12/16/2018 9:15 AM HISTOLOGY TEACHER Inhaled Oxygen Concentration - - Weight 90.7 kg (200 lb) 12/16/2018 9:15 AM HISTOLOGY TEACHER Height 157.5 cm (5' 2 ) 12/16/2018 9:15 AM HISTOLOGY TEACHER Body Mass Index 36.58 12/16/2018 9:15 AM HISTOLOGY TEACHER Plan of Treatment Not on file Siri Nix Personal/Family Self 1985 [address] [place] [id number]
--- OUTSIDE RECORDS SUMMARY | 2024-02-05 16:55 | XMS_ITS | Encounter Summary ---
Author Organization [facility] Address [address] [place] [address] Care Team Providers Care Nurse Instructor Name Role Phone Unavailable Primary Care Provider Unavailabl e Reason for Visit * Reason Comments Ear Pain Sore Throat Encounter Details Date Type Department Care Team (Late st Contact Info) Description 12/16/2018 9:20 AM IT TRAINING SPECIALIST Office Visit [facility] AT [address] [id number] Provider, [facility] Acute pharyngitis, unspecified etiology (Primary Dx); Dysfunction of both eustachian tubes Social History Tobacco Use Types Packs/Day Years Used Date Smoking Tobacco: Every Day Cigarettes Smokeless Tobacco: Never Sex and Gender Information Value Date Recorded Sex Assigned at Not on file Gender Identity Not on file Sexual Orientation Not on file documented as of this encounter Last Filed Vital Signs Vital Sign Reading Time Taken Comments Blood Pressure 122/80 12/16/2018 9:15 AM IT TRAINING SPECIALIST Pulse 95 12/16/2018 9:15 AM IT TRAINING SPECIALIST Temperature 37.2 ??C (99 ??F) 12/16/2018 9:15 AM IT TRAINING SPECIALIST Respiratory Rate 16 12/16/2018 9:15 AM IT TRAINING SPECIALIST Oxygen Saturation 97% 12/16/2018 9:15 AM IT TRAINING SPECIALIST Inhaled Oxygen Concentration - - Weight 90.7 kg (200 lb) 12/16/2018 9:15 AM IT TRAINING SPECIALIST Height 157.5 cm (5' 2 ) 12/16/2018 9:15 AM IT TRAINING SPECIALIST Body Mass Index 36.58 12/16/2018 9:15 AM IT TRAINING SPECIALIST documented in this encounter Patient Instructions * Patient Instructions* Real Hodge, DEDICATED REGIONAL DRIVER-PATIENT SAFETY OFFICER - 12/16/2018 9:23 AM IT TRAINING SPECIALIST Patient Education Pharyngitis WHAT YOU NEED TO KNOW: What is pharyngitis? Pharyngitis, or sore throat, is inflammation of the tissues and structures in your pharynx (throat). Pharyngitis is most often caused by bacteria. It may also be caused by a coldor flu virus. Other causes include smoking, allergies, or acid reflux. What signs and symptoms may occur with pharyngitis? ?? Sore throat or pain when you swallow ?? Fever, chills, and body aches ?? Hoarse or raspy voice ?? Cough, runny or stuffy nose, itchy or watery eyes ?? Headache ?? Upset stomach and loss of appetite ?? Mild neck stiffness ?? Swollen glands that feel like hard lumps when you touch your neck ?? White and yellow pus-filled blisters in the back of your throat How is pharyngitis diagnosed? Tell your healthcare provider about your symptoms. He may look insideyour throat and feel your neck. You may also need the following tests: ?? A throat culture may show which germ is causing your sore throat. A cotton swab is rubbed against the back of your throat. ?? Blood tests may be used to show if another medical condition is causing your sore throat. How is pharyngitis treated? Viral pharyngitis will go away on its own without treatment. Your sore throat should start to feel better in 3 to 5 days for both viral and bacterial infections. You may need any of the following: ?? Antibiotics treat a bacterial infection. ?? NSAIDs , such as ibuprofen, help [...] taken correctly. How can I manage my symptoms? ?? Gargle salt water. Mix ?? teaspoon salt in an 8 ounce glass of warm water and gargle. This may help decrease swelling in your throat. ?? Drink liquids as directed. You may need to drink more liquids than usual. Liquids may help soothe your throat and prevent dehydration. Ask how much liquid to drink each day and which liquids are best for you. ?? Use a cool-steam humidifier to help moisten the air in your room and decrease your cough. ?? Soothe your throat with cough drops, ice, soft foods, or popsicles. How can I prevent the spread of pharyngitis? Cover your mouth and nose when you cough or sneeze. Donot share food or drinks. Wash your hands often. Use soap and water. If soap and water are unavailable, use an alcohol based hand inspector rough castings. Call 911 for any of the following: ?? You have trouble breathing or swallowing because your throat is swollen or sore. When should I seek immediate care? ?? You are drooling because it hurts too much to swallow. ?? Your fever is higher than 102?F (39?C) or lasts longer than 3 days. ?? You are confused. ?? You taste blood in your throat. When should I contact my healthcare provider? ?? Your throat pain gets worse. ?? You have a painful lump in your throat that does not go away after 5 days. ?? Your symptoms do not improve after 5 days. ?? You have questions or concerns about your condition or care. CARE AGREEMENT: You have the right to help plan your care. Learn about your health condition and how it may be treated. Discuss treatment options with your healthcare providers to decide what care you want to receive. You always have the right to refuse treatment. The above information is an transport aide only. It is not intended as medical advice for individual conditions or treatments. Talk to your doctor, nurse or pharmacist before following any medical regimen to see if it is safe and effective for you. ?? Copyright [employer] 2019 Information is for End User's use only and may not be sold, redistributed or otherwise used for commercial purposes. All illustrations and images included in CareNotes?? are the copyrighted property of [employer] or [employer] TRAINING SPECIALIST documented in this encounter Progress Notes * Real Hodge APRN-CNP - 12/16/2018 9:30 AM CST Subjective: Siri Nix is a 33 year old female who presents for evaluation: Chief Complaint Patient presents with ??? Ear Pain ??? Sore Throat Primary Care Physician is Alexmary Vaca MD. Pt complains of bilateral ear pressure and some dizziness and a sore throat. She states she had strep a few weeks ago and would like to rule that out again. Onset of symptoms was 2 days ago, gradually worsening since that time. sore throat, bilateral ear pressure/pain. She is drinking plenty of fluids. Allergies Allergen Reactions ??? Sulfa Drugs Urticaria No outpatient medications have been marked as taking for the 12/16/18 encounter (Office Visit) with Provider, Debbie Mccormick. Past Medical History: Diagnosis Date ??? No known health problems There is no problem list on file for this patient. Past Surgical History: Procedure Laterality Date ??? [place] Tooth Extraction Social History Socioeconomic History ??? [...] file Gets together: Not on file Attends [employer] service: Not on file Active member of [...] on file Medications reviewed. Review of Systems Constitutional: Negative for fatigue, fevers, chills. Eyes: Negative Ears, nose, mouth, and throat: Positive for earaches bilaterally, persistent sore throat, vertigo. Negative for sinus trouble Respiratory: Negative Cardiovascular: Negative Neurological: Positive for dizziness, Negative for headaches, migraine headaches Objective: BP 122/80 (BP SITE: LEFT ARM, BP POSITION: SITTING, BP CUFF SIZE: 11) Pulse 95 Temp 99 ??F (37.2 ??C) (Oral) Resp 16 Ht 1.575 m (5' 2 ) Wt 90.7 kg (200 lb) SpO2 97% BMI 36.58 kg/m2 Skin: Physical Exam Exam General appearance: alert, cooperative, no distress Eyes: sclera and conjunctiva clear, EOMI and PERRLA, lids normal Ears: neither Right tympanic membrane - bubbles present nor Left tympanic membrane - bubbles present Nose: nares open; no septal deviation is noted Throat: no mucous membrane abnormalities, mild oropharyngeal erythema Neck: range of motion is intact, no masses, thyroid not enlarged, no adenopathy Lungs: breath sounds normal and symmetric; no rales or wheezes Heart: regular rhythm, normal S1 and S2, without murmurs, gallops or rubs Neurologic: mental status normal; alert and oriented X 3; cranial nerves II - XII are grossly intact Recent Results (from the past 24 hour(s)) STREP A SCREEN - POINT OF CARE (AMB) STL Collection Time: 12/16/18 12:00 AM Result Value Ref Range Strep A Rapid POCT Negative Negative Strep A Internal Control Present Lot # [id number] Expiration Date , Assessment: . Encounter Diagnoses Name Primary? Acute pharyngitis, unspecified etiology Yes Plan: Drink plenty of fluids Get plenty of rest Cool mist humidifier Elevate head of bed Tylenol or Ibuprofen per package direction for discomfort\fever (if not allergic) Follow up in 4-5 days if no improvement or sooner if worsening. flonase as directed for fluid behind the ears Good handwashing Orders Placed This Encounter ??? CULTURE RESPIRATORY UPPER ??? STREP A SCREEN - POINT OF CARE (AMB) STL Continue to follow up with Alex Vaca MD as directed. After Visit Summary reviewed with patient. The patient indicates understanding of these issues and agrees with the plan. Patient discharged to Home .SHAW Moore 12/16/2018 9:30 AM TRAINING SPECIALIST documented in this encounter Plan of Treatment Not on file documented as of this encounter Procedures Procedure Name Priority Date/Time Associated Diagnosis Comments CULTURE RESPIRATORY UPPER Routine 12/16/2018 9:23 AM IT TRAINING SPECIALIST Acute pharyngitis, unspecified etiology STREP A SCREEN - POINT OF CARE (AMB) STL Routine 12/16/2018 Acute pharyngitis, unspecified etiology documented in this encounter Results * CULTURE RESPIRATORY UPPER (12/16/2018 9:23 AM IT TRAINING SPECIALIST) Upper Respiratory Culture Final report [facility] INSURANCE BILL Result 1 [facility] INSURANCE BILL Comment:Routine respiratory yonatan Microbiology ENTIRE THROAT (SURFACE REGION OF NECK) / Unknown 12/16/2018 9:23 AM IT TRAINING SPECIALIST 12/16/2018 Narrative Resulting Agency Comment [facility] [address] [facility] [phone] [facility] - MICRO BIOLOGY ORDERABLES [facility] INSURANCE BILL [address] [place] [address] * STREP A SCREEN - POINT OF CARE (AMB) STL (12/16/2018) Strep A Rapid POCT Negative Negative Strep A Internal Control Present Lot # [id number] Expiration Date [id number] Throat ENTIRE THROAT (SURFACE REGION OF NECK) / Unknown 12/16/2018 [facility] - POINT OF CARE ORDERABLES documented in this encounter Visit Diagnoses Diagnosis Acute pharyngitis, unspecified etiology- Primary Dysfunction of both eustachian tubes Dysfunction of Eustachian tube documented in this encounter
== END 2024-01-29 12:53 | disposition home or self-care (01) ==
PROVIDERS: Emergency Provider Nurse Practitioner Family; PCP Family Medicine
DX: B34.9 Viral infection, unspecified (principal); F17.210 Nicotine dependence, cigarettes, uncomplicated; Z20.822 Contact with and (suspected) exposure to COVID-19
CPT/HCPCS: 87081; 87426; 87804; 87880; 99213; G0463

== ENCOUNTER 2024-05-25 08:23 | Emergency (ER) | payer OTHER, SELFPAY ==
[2024-05-25 08:34] VITALS: BP 107/79; PULSE 76; RESP 18; TEMP 36.2; O2SAT 99
--- OUTSIDE RECORDS SUMMARY | 2024-05-25 08:36 | XMS_ITS | Clinical Summary ---
Author Organization [facility] Address [address] [place] [address] Care Team Providers Care Lay Out Former Name Role Phone Unavailable Primary Care Provider Unavailabl e Source Comments [facility],non-owned Affiliates and Associated Physician Practices is amultiple site organization consisting of ambulatory clinics and hospital sitesin [place], [place], [place] and [place]. This disclosure is being madepursuant to the Care Everywhere program and may not contain all information available regarding this patient. Last updated 17.[facility] Allergies Active Allergy Reactions Criticality Noted Date Comments Sulfa Drugs Urticaria Medium 02/05/2017 Medications * Be aware that medications may not be up to date on this document. Alwaysverify current medications with the patient. Cetirizine HCl (ZYRTEC PO) Active Ascorbic Acid (VITAMIN C ER PO) Ac tive Multiple Vitamin (MULTI VITAMIN PO) A ctive Family History Medical History Relation Name Comments Cancer - Skin, Non Melanoma Maternal Grandfather Dementia Maternal Grandfather Dementia Maternal Grandmother Cancer - Colon Paternal Grandfather Dementia Paternal Grandfather Relation Name Status Comments Maternal Grandfather Maternal Grandmother Paternal Grandfather Social History Tobacco Use Types Packs/Day Years Used Date Smoking Tobacco: Every Day Cigarettes Smokeless Tobacco: Never Comments No Sex and Gender Information Value Date Recorded Sex Assigned at Not on file Legal Sex Female 9:24 AM LACE BURN OUT TENDER Gender Identity Not on file Sexual Orientation Not on file Last Filed Vital Signs Vital Sign Reading Time Taken Comments Blood Pressure 122/80 12/16/2018 9:15 AM LACE BURN OUT TENDER Pulse 95 12/16/2018 9:15 AM LACE BURN OUT TENDER Temperature 37.2 C (99 F) 12/16/2018 9:15 AM LACE BURN OUT TENDER Respiratory Rate 16 12/16/2018 9:15 AM LACE BURN OUT TENDER Oxygen Saturation 97% 12/16/2018 9:15 AM LACE BURN OUT TENDER Inhaled Oxygen Concentration - - Weight 90.7 kg (200 lb) 12/16/2018 9:15 AM LACE BURN OUT TENDER Height 157.5 cm (5' 2 ) 12/16/2018 9:15 AM LACE BURN OUT TENDER Body Mass Index 36.58 12/16/2018 9:15 AM LACE BURN OUT TENDER Plan of Treatment Health Maintenance Due Date Last Done Comments PAP SMEAR 1987 HIV SCREENING 09/16/2002 HEPATITIS C SCREENING 09/12/2005 DTAP/TDAP/TD VACCINES (1 - Tdap) 09/16/2006 HEPATITIS B VACCINE (1 of 3 - 19+ 3-dose series) 09/16/2006 COVID-19 VACCINE ( - 2023-2 5 season) 2023 DEPRESSION SCREENING 02/09/2024 INFLUENZA VACCINE (Season Ended) 2024 ZOSTER VACCINE (1 of 2) 09/16/2037 HIB VACCINE Aged Out No longer eligi ble based on patient's age to complete this topic HPV VACCINE Aged Out No longer eligi ble based on patient's age to complete this topic MENINGOCOCCAL (Group B) VACC INE SHARED DECISION-MAKING Aged Out No longer eligibl e based on patient's age to complete this topic MENINGOCOCCAL GROUPS A/C/Y/W VACCINE Aged Out No longer eligible b ased on patient's age to complete this topic PNEUMOCOCCAL VACCINE Aged Out No long er eligible based on patient's age to complete this topic Insurance [employer] Address: [facility] [id number] [phone]
--- OUTSIDE RECORDS SUMMARY | 2024-05-25 08:37 | XMS_ITS | Data Portability ---
Author Organization [facility] [place] Address [address] [place] [address] [place] [address] Care Team Providers Care User Experience Designer Name Role Phone SHIN NGUYEN Primary Care Provider Assessment Encounter Date Assessment Date Assessment LastModified by Organization Details LastModified Time 12/03/2021 12/03/2021 path- EZEKIEL 3 with clear margins FU 3-4 weeks for exam. continue pelvic rest until then FU 4 mos repap [email or web address] Not available 12/03/2021 17:04:51 12/23/2021 12/23/2021 normal activity repap end mar margins were clear [email or web address] Not available 12/23/2021 16:29:57 Plan of Treatment Reminders Order Date Submit Date Provider Last Modified By Organization Details Last Modified Time Details Appointments None recorded. Lab test, urine 2022 023 [email or web address] [place], [address], [place], [address], 3 14:23:23 Referral None recorded. Procedures None recorded. Surgeries None recorded. Imaging US, [facility], [place], [address], 3 11:37:16 Medication Orders None recorded. Patient TargetsNo targets recorded. Patient InstructionsNo instructions recorded. Reason for Referral None Reported. Results Created Date Observation Date Name Description Value Unit Range Abnormal Flag Note LastModifiedBy Organization Detail LastModifiedTime 11/29/19 22 11/28/2021 CT/GC AND TRICH OMONA S VAGIN ALBER (RRNA ), SWAB chlamydia trachomatis, PCR Negati ve negati ve Not Available [facility] [address] [place], [address], 12/01/2021 15:55:28 11/29/19 22 11/28/2021 CT/GC AND TRICH OMONA S VAGIN ALBER (RRNA ), SWAB neisseria gonorrhoeae, PCR Negati ve negati ve Not Available [facility] Infect[facility] Disease [address] [place], [address], 12/01/2021 15:55:28 11/29/19 22 11/28/2021 CT/GC AND TRICH OMONA S VAGIN ALBER (RRNA ), SWAB trichomonas vaginalis ribosomal RNA (rrna) Negati ve negati ve Not Available [facility] Infectious Disease [id number] [place] [address], [address], 12/01/2021 15:55:28 11/29/19 22 11/28/2021 SURGI BASIL [...] wed with stefanie murillo of [employer] who agree s with the above inter [...] Gross ed by Lebron Powers Not Available [facility] Infect[facility] Disease [address] [place], [address], 12/01/2021 15:55:29 11/29/19 22 11/28/2021 pregn xiao test, urine HCG negati ve Not Available [place] [address], [place], [address], 11/28/2021 15:45:10 03/02/19 23 03/02/2022 pregn xiao test, urine HCG positi ve Not Available [place] [address], [place], [address], 03/02/2022 14:22:50 05/08/19 23 05/07/2022 IMAGE GUIDE D PAP AND HPV REGAR DLESS image guided Pap, HPV regardless of Pap result SEE RESULT S BELOW CASE REPOR T: Cytol ogy Gynec ologi basil Repor t Case: [id number] Autho gilbert cabral Provi heath: Romain Verdugo Colle cted: 05/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 Not Available [facility] (Lab) [address], [place], [address], 05/12/2022 15:59:29 02/08/19 23 02/07/2022 US, obste tric, follo w-up No observ ation record ed. [email or web address] [facility] [address], [place], [address], 02/12/2022 13:20:00 02/11/19 23 02/11/2022 US, obste tric, trans vagin al No observ ation record ed. [email or web address] [place] [address], [place], [address], 02/11/2022 16:56:38 02/11/19 23 02/11/2022 US, obste tric, trans vagin al No observ ation record ed. ALLIE Marley [address], [place], [address], 02/26/2022 09:02:08 Result Notes None recorded. Problems Name Problem SNOMED Code Status Onset Date Resolution Date Notes Provider Name and Address Organization Details Recorded Time Pregnanc y 99228948 Completed 201901/22/2020 Constance viera, [facility] 0 12:22:10 Smoker 82603526 Completed Brina viera, [facility] 3 13:06:22 Itching 045496991 Completed feet - labs WNL Brina viera, [facility] 3 13:06:22 Large for gestatio n age fetus 307300306 Completed US Brina viera, [facility] 3 13:06:22 Cervical intraepi thelial neoplasi a grade III with severe dysplasi a 038151829 Active 2021 Sarah Yee MD [address], [place], [address], [facility] 2 19:59:51 History of loop electros urgical excision procedur e 06853569845 102 Active 2021 Sarah Yee MD [address], [place], [address], [facility] 17:05:02 Problem Notes None recorded. Procedures Surgical History Date Name Laterality Status Provider Name and Address Organization Details Recorded Time 11/29/19 22 LEEP completed Sarah Yee MD [address], [place], [address], [facility] 11/28/2021 16:18:12 11/29/19 22 LEEP completed Esther Fabian [facility] 11/28/2021 15:34:02 09/27/19 22 Colposcopy completed Sarah Yee MD [address], [place], [address], [facility] 09/26/2021 16:19:29 09/27/19 22 [facility] 03/02/2022 13:08:53 09/27/19 22 [facility] 03/02/2022 13:09:40 08/26/19 22 Date of Last Pap Smear completed Brina [facility] 03/02/2022 13:00:29 02/08/19 07 extraction of wisdom tooth completed Brinasamreen Christiansen [facility] 06/07/2019 16:41:17 02/08/18 89 Unlisted px lacrimal system [facility] 06/07/2019 16:41:06 Imaging Results Imaging Date Name Status LastModified by Organization Details LastModified Time 02/07/2022 US, obstetric, follow-up completed [place] [address], [place], [address], 02/12/2022 13:20:00 02/11/2022 US, obstetric, transvaginal completed [email or web address] [place] [address], [place], [address], 02/11/2022 16:56:38 02/11/2022 US, obstetric, transvaginal completed ALLIE Marley [address], [place], [address], 02/26/2022 09:02:08 Procedure Notes None recorded. Medical Equipment None Reported. Allergies Allergen ID Allergen Name Allergen Category Reaction Reaction Severity Criticality Documentation Date Start Date Code Code System Note Provider Name and Address Organization Details Recorded Time 395 Substance with sulfonami de structure and antibacte rial mechanism of action (substanc e) medicatio n Not available Not available Not available 06/07/2019 11515 8003 SNOMED Brina Christiansen [facility] 0 10:34:02 Medications Name Sig Start [...] completed Not Available Not Available Not Available [place] 10 mg-325 mg tablet Take 1 tablet [...] Updated DateTime 12/03/2021 158.75 cm 36 kg/m2 94716.47 g 121 mm[Hg] 83 mm[Hg] [facility] 2 16:31:59 Date Recorded Body height Body mass index (BMI) Body weight Systolic blood pressure Diastolic blood pressure Provider Name and Address Organization Details Last Updated DateTime 12/23/2021 158.75 cm 35.8 kg/m2 39721.88 g 125 mm[Hg] 85 mm[Hg] [facility] 2 16:20:54 Date Recorded Body height Body mass index (BMI) Body weight Systolic blood pressure Diastolic blood pressure Provider Name and Address Organization Details Last Updated DateTime 03/02/2022 158.75 cm 35.3 kg/m2 04900.1 g 120 mm[Hg] 85 mm[Hg] Brina Christiansen [facility] 3 14:12:56 Date Recorded Body height Body mass index (BMI) Body weight Systolic blood pressure Diastolic blood pressure Provider Name and Address Organization Details Last Updated DateTime 05/07/2022 158.75 cm 11.3 kg/m2 14760.32 g 122 mm[Hg] 82 mm[Hg] Cassie Ruffin [facility] 16:44:30 Social History Question Answer Notes LastModified by Organizat ion Details LastModified Time Tobacco Smoking Status Current Every Day Smoker Brina viera, [facility] 06/07/2019 16:39:53 What Is Your Level Of Alcohol Consumption? Moderate Information not available 06/07/2019 If You Are , What Was Your Level Of Alcohol Consumption Prior To ? Occasional [email or web address] Information not available 06/07/2019 Are You Blind Or Do You Have Difficulty Seeing? No [email or web address] Information not available 03/02/2022 Are You Deaf Or Do You Have Serious Difficulty Hearing? No [email or web address] Information not available 03/02/2022 Which Illicit Or Recreational Drugs Have You Used? Yes Anderson [email or web address] Information not available 06/07/2019 Do You Or Have You Ever Used E-cigarettes Or Vape? Never Used Electronic Cigarettes [email or web address] Information not available 10/12/2019 Illicit Drugs Pre- Yes [email or web address] Information not available 06/07/2019 What Was The Date Of Your Most Recent Tobacco Screening? 03/02/2022 [email or web address] Information not available 03/02/2022 Do You Or Have You Ever Used Smokeless Tobacco? Never Used Smokeless Tobacco [email or web address] Information not available 10/12/2019 How Much Tobacco Do You Smoke? 1 PPD [email or web address] Information not available 07/15/2020 Smoking Pre- Yes Information not available 06/07/2019 Sex: Unknown Functional Status Question Answer Note LastModified by Organizat ion Details LastModified Time Do you have difficulty walking or climbing stairs? No [email or web address] Information not available 03/02/2022 Are you able to walk? YESWOREST [email or web address] Information not available 03/02/2022 Are you able to care for yourself? Yes [email or web address] Information not available 03/02/2022 Do you have difficulty dressing or bathing? No [email or web address] Information not available 03/02/2022 What is your exercise level? Occasional [email or web address] Information not available 06/07/2019 Mental Status None recorded. Family History Relationship Description Onset Age of this Age Resolved Age Notes LastModified by Organization Details LastModified Time Father Hypercholest erolemia [email or web address] Not available 06/06 16:38:07 Mother Hyperglycemi a [email or web address] Not available 06/06 16:38:29 Paternal Grandmother Malignant tumor of colon [email or web address] Not available 06/06 16:38:49 Sister Female infertility [email or web address] Not available 16:39:12 Sister Cyst of ovary [email or web address] Not available 06/06 16:39:31 Maternal Grandfather Malignant neoplasm of skin 60 [email or web address] Not available 2020 14:53:36 Medical History Condition [...] Diagnosis/Indication Diagnosis SNOMED-CT Code Diagnosis ICD10 Code Diagnosis Note [id number] Maria Del Carmen Wilson [facility] [address],[place] [address] 06/07/2019 09:31:49 06/07/2019 11:05:22 Amenorrhea 84696137 N91.2 Irregular periods 126747 07 N92.6 2486 Chelsey [facility] [address],[place] [address] 06/07/2019 11:11:33 06/07/2019 13:09:12 screening 610521860 Z36.87 5757 Maria Del Carmen Wilson [facility] [address],[place] [address] 07/07/2019 09:33:40 07/07/2019 12:11:17 Bacterial vaginosis 048679036 N76.0 6700 Puma Lyn MD [place] [address],[place] [address] 07/14/2019 10:26:59 07/23/2019 15:35:29 6701 Puma Lyn MD [place] [address],[place] [address] 07/14/2019 10:28:43 07/21/2019 13:32:44 Routine care 079203718 Z34.81 7565 [facility] [address],[place] [address] 07/20/2019 12:19:56 07/20/2019 13:18:06 screening 213854532 Z36.82 Z36.0 27791 [facility] [address],[place] [address] 08/10/2019 10:20:59 06/11/2020 17:38:24 00433 Puma Lyn MD [place] [address] [place] [address] 08/18/2019 12:14:50 08/18/2019 13:01:59 Routine care 713232200 Z34.81 [address]1954 [facility] [address],[place] [address] 09/14/2019 11:57:02 09/14/2019 12:31:52 Routine care 103118362 Z34.92 [id number] [facility] [address],[place] [address] 09/15/2019 11:51:32 09/15/2019 13:37:26 screening for malformation 405525837 Z36.3 [id number] Maria Del Carmen Wilson [facility] [address],[place] [address] 10/12/2019 10:21:26 10/12/2019 11:36:31 Routine care 879367572 Z34.92 96454 Puma Lyn MD [place] [address],[place] [address] 11/13/2019 11:29:14 11/13/2019 11:55:19 Large for gestation age fetus 401087501 O35.8XX9 85617 [facility] [address],[place] [address] 11/29/2019 11:39:48 11/30/2019 11:54:04 63247 Chelsey Brown [place] [address],[place] [address] 11/29/2019 11:40:23 11/29/2019 12:36:38 Gravid uterus srcno-tpm-ivqsz 957106741 O26.843 Z3A.31 36913 [facility] [address],[place] [address] 12/14/2019 17:10:22 12/18/2019 16:10:19 Routine care 066875215 Z34.92 02344 [facility] [address],[place] [address] 12/21/2019 14:51:04 12/21/2019 15:48:18 Uterine size for dates discrepancy 980607006 O26.843 Z3A.34 45649 Shantibrandon Rivera [place] [address],[place] [address] 01/22/2020 14:08:40 01/22/2020 15:01:09 state 74921234 Z39.2 Continue to watch for signs/symp toms of post depression . Return one year from last pap smear for a well woman exam. Patient received above instructio ns, and questions have been answered. If you have any questions please call or respond to this email. Patient was made aware of the patient portal and may obtain a paper copy of today's plan if desired Contracept ion care management 696329747 Z30.9 Pt would like to start p.o.p. Discussed importance of taking at the same time every day. Also informed that it may not be as effective as estrogen containing pills. [id number] Shanti Estradaluke [place] [address],[place] [address] 04/18/2020 10:47:47 04/18/2020 11:28:48 Surveillance of oral contraception 207452317 Z30.41 Discussed all control options in great detail. Pt would like to start ocp. She is aware of the risks and benefits. She does not have any medical condition that is contraindi cated with the use of estrogen containing control. Pt will start her pills on the first wednesday following the start of her period. She is aware it is not effective for control the first month. She is also aware of the importance of taking at the same time every day. Encouraged use of condoms as the pill does not protect against STD's. Will return in 3 months for annual exam and med check. Consent was read and signed. Pt verbalized understand ing. 22852 Shanti Estradaluke [place] [address],[place] [address] 07/15/2020 14:34:57 07/15/2020 15:13:42 Gynecologic examination 63885935 Z01.419 Take Calcium with Vitamin D 1200mg daily if not receiving in daily diet. It is strongly advised to have an annual flu shot and up can obtain at most pharmacies . If you have not had a TDap shot in the last 10 years you should obtain one as well. Discussed with patient & provided with informatio n regarding Gardisil vaccine to prevent the 4 strains for HPV that cause cervical cancer if under age 26. Encourage safe sexual practices, to use condoms and limit partners if not already in a monogamous relationsh ip. Do monthly self breast exams. Have mammogram yearly or every other year depending on family history. BRCA testing is now available for patients with strong genetic history of female cancer. If interested contact the office. Engage in daily exercise of low impact aerobic exercise 45-60 minutes 4-5 times weekly. Avoid tobacco and illicit drugs as well as using moderation with alcohol intake less than 1-2 8 oz beverages daily. This lifestyle behavior pattern will lead to less health conditions and longer life span. If BMI greater than 25 weight watchers or dietary consult advised. Patient received above instructio ns, and questions have been answered. If you have any questions please call or respond to this email. Patient was made aware of the patient portal and may obtain a paper copy of today's plan if desired. [facility] care management 117972295 Z30.9 Discussed all control options and pt would like mirena or kyleena IUD. I have discussed in detail all risks and benefits including risk of infection and perforatio n. Handouts given on both. She will check benefits and call us on the first day of her cycle to schedule placement. [id number] Sarah Yee MD [place] [address],[place] [address] 08/25/2021 16:06:40 08/25/2021 16:52:21 Gynecologic examination 55320692 Z01.419 [id number] MD Jazzy Faye [address],[facility] [place] [address] 09/26/2021 14:49:27 09/26/2021 16:21:17 Screening procedure 42787724 Z13.9 Atypical s quamous cells on cervical Papanicolaou smear cannot exclude high grade squamous intraepithelial lesion 562984959 R87.611 [id number] Sarah Yee MD [place] [address],[facility] [place] [address] 11/03/2021 14:09:05 11/04/2021 15:34:37 Cervical intraepithelial neoplasia grade III with severe dysplasia 924166512 D06.9 Preoperative state 30784 002 Z78.9 [id number] Sarah Yee MD [place] [address],[place] [address] 11/28/2021 15:20:33 11/28/2021 16:31:12 Screening procedure 00067335 Z13.9 Cervical intraepithelial neoplasia grade III with severe dysplasia 135433009 D06.9 [id number] Sarah Yee MD [place] [address],[place] [address] 12/03/2021 16:23:08 12/03/2021 17:08:29 Cervical intraepithelial neoplasia grade III with severe dysplasia 326022025 D06.9 History of loop electrosurgical excision procedure 4611324695 9102 Z98.890 [id number] Sarah Yee MD [place] [address],[place] [address] 12/23/2021 16:14:45 12/23/2021 17:40:19 History of loop electrosurgical excision procedure 2644902603 9102 Z98.890 Cervical intraepithelial neoplasia grade III with severe dysplasia 252512327 D06.9 [id number] Helena Yates [place] [address],[place] [address] 02/11/2022 16:00:09 02/11/2022 18:40:41 Spotting per vagina in 394873019 O26.859 Z3A.09 [id number] Shanti Estradastephanieluke [place] [address],[place] [address] 03/02/2022 13:56:53 03/02/2022 14:44:20 Missed miscarriage 87718701 O02.1 Elective t ermination of 54874024 Z33.2 Pt here post eab. Doing well physically and mentally. Her upt is still positive. Will check hcg next week. and follow until negative. Bleeding and infection precaution s discussed. Also discussed contracept ion. Pt aware that she will ovulate prior to starting her cycle and should be very cautious. Discussed contracept ion options. Will return in 3-4 weeks to make final decision on contracept ion. Leaning towards ocp. 763984 EPI [facility] [place] [address] [address] 05/07/2022 16:37:34 05/08/2022 16:10:17 Abnormal cervical Papanicolaou smear 284572919 R87.619 Pap sample sentWill forward to Dr. Yee once received for review & discuss pt plan of care moving forward. No other questions. Time spent in visit is a total of 15 mins with at least 50% of visit consisting of counseling and review of plan of care. Health Concerns Section Related Observation LastModified by Organization Detai ls LastModified Time None Recorded Concern Status LastModified by Organization Details LastModified Time None Recorded Advance Directives Directive None Recorded Payers Encounter Date Sequence Insurance Name Policy Number Policy Willoughby Covered Member ID Willoughby Member ID Guarantor Name 12/03/2021 1 [facility] [employer] Siri Nix [id number] [facility] 12/23/2021 1 [facility] [employer] Siri Nix [id number] [facility] 02/11/2022 1 [facility] [employer] Siri Nix [id number] [facility] 03/02/2022 1 [facility] [employer] Siri Nix [id number] [facility] 05/07/2022 1 [facility] [employer] Siri Nix [id number] [facility] Notes Date Note Type Note Provider Name and Address Organization Details Recorded Time 12/03/2021 text/html leep 5 d ago. Bryant d eaasy recovery. no cramping, only spotting,. no fever. Sarah Yee MD [address], [place], [address], [place] [facility] 12/03/2021 17:05:14 12/23/2021 text/html LEEP 11/28. amy chávez, no concerns. Sarah Yee MD [address], [place], [address], [facility] 12/23/2021 16:31:38 03/02/2022 text/html Termination on 1-6. Bleeding has subsided. No pain, fever or flu like symptoms. Pt feeling very good. Shanti viera, [facility] 03/02/2022 14:32:33 05/07/2022 text/html Here today for r /p yearly Pap/HPV testingColpo 2021 HGSILPap/hpv 2021 ASCUS/+HR HPV/+HPV#16 Kimberly Rojas, [facility]- [address], [place], [address], [facility] 05/08/2022 14:01:07 OBGyn Episode Ob Episode Information Episode Created Date Number of Fetuses Patient Bloodtype Patient rh Status Prepregnancy Weight lbs Domestic Partner Domestic Partner Phone Father Name Ocean Forwarder Status 06/07/19 20 1 CLOSED Fetus Data First Name Last Name Admitted to NICU Weight (g) Sex Living Outcome Pediatric Complications Fetus ID Race Codes Race Delivery Type , Spontane ous 942 Joseph Calculation Initial Joseph Date Initial Exam Date Initial Exam Provider Initial Ultrasound Date Last Menstrual Period Date Ultra Sound Weeks Gestation 0 Eighteen To Twenty Week Joseph Update Ultra Sound Date Fundal Height At Umbil Quickening Date Ultra Sound Latest Weeks Gestation Final Joseph Confirmed By Final Joseph Confirmed Date Final Joseph Date Ultra Sound Latest Days Gestation 0 [...] Domestic Partner Domestic Partner Phone Father Name Ocean Forwarder Status 07/14/19 20 1 O Positive 191 CLOSED Fetus Data First Name Last Name Admitted to NICU Weight (g) Sex Living Outcome Pediatric Complications Fetus ID Race Codes Race Delivery Type 2636.50 35 M Prematur e 2010 Vaginal Delivery Problems Problem Notes Problem Name Start Date End Date Resolution Snomed Code Not e Smoker 05962611 Large for gestation age fetus US Itching 277071255 feet - lab s WNL Joseph Calculation Initial Joseph Date Initial Exam Date Initial Exam Provider Initial Ultrasound Date Last Menstrual Period Date Ultra Sound Weeks Gestation 01/27/2020 07/14/2019 06/07/2019 04/06/2019 6 Eighteen To Twenty Week Joseph Update Ultra Sound Date Fundal Height At Umbil Quickening Date Ultra Sound Latest Weeks Gestation Final Joseph Confirmed By Final Joseph Confirmed Date Final Joseph Date Ultra Sound Latest Days Gestation 0 [email or web address] 07/14/2019 01/27/20 20 0 Pre- Flowsheet Flowsheet Date 07/14/2019 Bliss Score Blood [...] Weight in lbs Pre/Post Dialysis Refused Weight 191.837703628546 BP Diastolic BP Location Tested BP Systolic [...] Weight in lbs Pre/Post Dialysis Refused Weight 196.138692688657 BP Diastolic BP Location Tested BP Systolic BP Type 79 115 Fetus Heart Rate Present A 145 Fetus Movement A No Comments Flowsheet Date 09/14/2019 Bliss Score Blood Edema Fundus Height Fundus Units Glucose Ketones Leukocytes Nitrite Labor Signs Protein Cervic Dilation Cervic Effacement Cervic Station 24 Type Weight in lbs Pre/Post Dialysis Refused Weight 203.02830335284 BP Diastolic BP Location Tested BP Systolic [...] Weight in lbs Pre/Post Dialysis Refused Weight 209.894604549681 BP Diastolic BP Location Tested BP Systolic [...] Weight in lbs Pre/Post Dialysis Refused Weight 215.101225502453 BP Diastolic BP Location Tested BP Systolic [...] Weight in lbs Pre/Post Dialysis Refused Weight 216.052879752336 BP Diastolic BP Location Tested BP Systolic [...] Weight in lbs Pre/Post Dialysis Refused Weight [phone] BP Diastolic BP Location Tested BP Systolic [...] Estim ated Date of Delivery false Thalassemia (Argentine, English, Mediterranean, Or Background): MCV < 80 false Neural Tube Defect (Meningomyelocele, Spina Bifi da, Or Anencephaly) false Congenital Heart Defect false Down Syndrome false Esa-Sachs (eg, Bahai, Cajun, Upper Sorbian-Iranian) f alse Compa Disease false Sickle Cell Disease Or Trait () false Hemophilia Or Other Blood Disorders false Muscular Dystrophy false Cystic Fibrosis false Dwain's Chorea false Intellectual Disability/Autism false If Yes, [...] Sterilization Discharge Date Comments 0 None 35.2 [place] Shanti [facility] labor and delivery Discharge Information Feeding Method Contraceptive Method Maternal HG B and HCT Levels Ob Episode Information Episode Created Date Number of Fetuses Patient Bloodtype Patient rh Status Prepregnancy Weight lbs Domestic Partner Domestic Partner Phone Father Name Ocean Forwarder Status 01/03/20 1 DELETED Joseph Calculation Initial Joseph Date Initial Exam Date Initial Exam Provider Initial Ultrasound Date Last Menstrual Period Date Ultra Sound Weeks Gestation 0 Eighteen To Twenty Week Joseph Update Ultra Sound Date Fundal Height At Umbil Quickening Date Ultra Sound Latest Weeks Gestation Final Joseph Confirmed By Final Joseph Confirmed Date Final Joseph Date Ultra Sound Latest Days Gestation 0 [...] Domestic Partner Domestic Partner Phone Father Name Ocean Forwarder Status 03/02/19 23 1 CLOSED Fetus Data First Name Last Name Admitted to NICU Weight (g) Sex Living Outcome Pediatric Complications Fetus ID Race Codes Race Delivery Type , Spontane ous [id number] Joseph Calculation Initial Joseph Date Initial Exam Date Initial Exam Provider Initial Ultrasound Date Last Menstrual Period Date Ultra Sound Weeks Gestation 0 Eighteen To Twenty Week Joseph Update Ultra Sound Date Fundal Height At Umbil Quickening Date Ultra Sound Latest Weeks Gestation Final Joseph Confirmed By Final Joseph Confirmed Date Final Joseph Date Ultra Sound Latest Days Gestation 0 [...]
--- NOTE | 2024-05-25 09:23 | ED.EAR ---
HPI - Ear Problem General Chief complaint: Ear Stated complaint: ear Time Seen by Provider: 05/25/24 08:55 Source: patient and RN notes reviewed Mode of arrival: ambulatory Limitations: no limitations History of Present Illness HPI Narrative: 38-year-old male presents [facility] complaining of bilateral ear pain and upper respiratory symptoms for approximately 8 days. Patient's thought her symptoms were related to allergies and she started to get a lot better after about for 5 days. She says that her symptoms then have suddenly got worse and she feels that her ears are full of fluid and that they hurt. She says her left ear hurts worse than her right. Patient also says she has sinus pressure and yellow sinus discharge coming out of her nose along with a sore throat. She denies any fevers, chills, body aches, runny nose, cough, chest pain or shortness of breath. Patient has been taking [id number] Zyrtec as needed for congestion. Related Data Allergies Allergy/AdvReac Type Severity Reaction Status Date / Time Sulfa (Sulfonamide Allergy Mild Rash Verified 05/25/24 08:34 Antibiotics) gluten AdvReac Intermediate Gastrointestinal Verified 05/25/24 08:34 Upset Review of Systems Review of Systems: CONSTITUTIONAL: Denies fever, chills, or sweats. EYES: Denies visual changes, redness, or discharge. ENT: Denies rhinorrhea, congestion, difficulty swallowing. Positive for sore throat, sinus pressure, otalgia and ear fullness. CARDIOVASCULAR: Denies chest pain, palpitations, or edema. RESPIRATORY: Denies cough or dyspnea. GASTROINTESTINAL: Denies abdominal pain, nausea, vomiting, or diarrhea. GENITOURINARY: Denies dysuria or hematuria. SKIN: Denies rash or itching. MUSCULOSKELETAL: Denies back pain, joint pain, or myalgia. NEUROLOGIC: Denies headache, numbness, or weakness. PSYCHIATRIC: Denies anxiety or depression. All other systems reviewed are negative, except as documented in HPI. FORMERLY [facility], [facility] Past Medical History Medical History IUP (intrauterine ), incidental Morbid obesity with BMI of 40.0-44.9, adult Family History Family History Grandparent Carcinoma of colon Social History Social History Smoking packs per day: 0.5 Smoking cigarettes per day: 10.0 Years smoked: 18 Smoking pack-years: 9.00 Smoking status: Heavy tobacco smoker Tobacco type: cigarettes Second hand tobacco smoke exposure: No Alcohol intake: current Drinks per week: 24 Substance use: never Do You Feel Safe in your Home?: Yes Lack of Transportation: No Lack of Food: Never True Current Housing: I Have Housing Concerned About Future Housing: No Difficulty Paying Gas/Electric Bills: No Difficulty Paying for Meds: No Currently Unemployed: No Education: Bachelor's Degree Difficulty w/ Childcare or Family Care: No Gender identity (if verbalized by the patient): Female Sexual Orientation (if Verbalized by the Patient): Straight or Heterosexual Spiritual care concerns: No Comments At the time of my signature, I reviewed and agree with the nursing past medical, surgical, social, and family history. There is no relevant family history pertinent to the patient complaint. Exam Narrative: GENERAL: This is a well-nourished, well-developed adult, in no apparent distress. They are non ill-appearing, nontoxic appearing. HEAD: normocephalic, atraumatic. EYES: Sclera clear/white. Vision is grossly intact. Extraocular movements intact EARS: External ears normal, auditory canals clear and without drainage, TMs without redness, non bulging, without perforation bilateral TM effusions present. Hearing grossly intact. NOSE: External nose normal with no obvious nasal discharge, nasal turbinates are erythematous bilaterally, no rhinorrhea. Sinus tenderness to palpation present to the frontal and maxillary sinuses. THROAT: Mucous membranes moist, posterior pharynx mild erythema, no swelling. Uvula midline. , postnasal drip present NECK: Neck supple, non-tender without lymphadenopathy, masses or thyromegaly. CARDIOVASCULAR: Regular rate and rhythm RESPIRATORY: Normal respiratory rate, respiratory effort nonlabored, no respiratory distress SKIN: warm, Dry, intact with no suspicious lesions or rash, good texture and turgor. NEURO: awake, alert, and oriented to person, place and time. There were no obvious focal neurologic abnormalities. EXTREMITIES: No joint tenderness, effusion, or edema noted. Course Course Emergency Course: Patient is aware of diagnosis, understands and agrees to treatment plan. Anticipatory guidance given. Patient agrees to follow-up as directed and is aware of reasons to seek care at the emergency department. Portions of this record may have been created with voice recognition software Level of Care: Express Care Visit Vital Signs Vital signs: Vital Signs Temperature 97.2 F L 05/25/24 08:34 Pulse Rate 76 05/25/24 08:34 Respiratory Rate 18 05/25/24 08:34 Blood Pressure 107/79 05/25/24 08:34 Pulse Oximetry 99 05/25/24 08:34 Oxygen Delivery Room Air 05/25/24 08:34 Temperature 97.2 F L 05/25/24 08:34 Pulse Rate 76 05/25/24 08:34 Respiratory Rate 18 05/25/24 08:34 Blood Pressure 107/79 05/25/24 08:34 Pulse Oximetry 99 05/25/24 08:34 Oxygen Delivery Room Air 05/25/24 08:34 Reviewed Medical Decision Making MDM Narrative Medical decision making narrative: Symptoms have been persistent for approximately 8 days. Given the patient's symptoms were getting better and suddenly got worse will treat her empirically with Augmentin for a bacterial sinusitis. Discussed physical exam findings. Advised supportive measures and signs/symptoms to go to the ER. Pt is appropriate for outpt treatment and f/u. Vital Signs Vital Signs: Vital Signs Temperature 97.2 F L 05/25/24 08:34 Pulse Rate 76 05/25/24 08:34 Respiratory Rate 18 05/25/24 08:34 Blood Pressure 107/79 05/25/24 08:34 Pulse Oximetry 99 05/25/24 08:34 Oxygen Delivery Room Air 05/25/24 08:34 Temperature 97.2 F L 05/25/24 08:34 Pulse Rate 76 05/25/24 08:34 Respiratory Rate 18 05/25/24 08:34 Blood Pressure 107/79 05/25/24 08:34 Pulse Oximetry 99 05/25/24 08:34 Oxygen Delivery Room Air 05/25/24 08:34 Critical Care Time Critical Care Time Critical Care Time: No Discharge Plan Discharge Clinical Impression: Sinusitis Qualifiers: Sinusitis location: unspecified location Chronicity: acute Recurrence: non-recurrent Qualified Code(s): J01.90 - Acute sinusitis, unspecified Patient Disposition: Home Condition: Stable Instructions: Antibiotic Form, Sinusitis (ED) Additional Instructions: Take the antibiotics as directed and complete the course even if you start to feel better. You may use a Neti pot saline rinse 3 times a day. Return to urgent care or go to the ER for new or worsening symptoms. Continue to take Tylenol or Motrin for pain. Use a humidifier or vaporizer at night. Drink plenty of water. 8-10 glasses per day. Use flonase 2 times per day for 5 days then as needed Take mucinex 2 times per day and be sure to take with 8oz of water. Follow up with Primary provider if not getting better. Return to Express Care or go to the ER for new or worsening symptoms. Patient Language: Frisian Prescriptions: New amoxicillin-pot clavulanate 875-125 mg tablet 1 tablet PO Q12H 7 Days Qty: 14 0RF Follow-up/Referrals: Alex Vaca MD [Primary Care Provider] - Time of Disposition: 09:03
== END 2024-05-25 09:09 | disposition home or self-care (01) ==
PROVIDERS: PCP Family Medicine
DX: J01.90 Acute sinusitis, unspecified (principal); F17.210 Nicotine dependence, cigarettes, uncomplicated
CPT/HCPCS: 99213; G0463

== ENCOUNTER 2024-07-26 14:52 | Outpatient (CLI) | payer OTHER, SELFPAY ==
[2024-07-26 15:45] LABS: Free T4 Free Thyroxine 0.72 ng/dL (0.78-2.19)
--- OUTSIDE RECORDS SUMMARY | 2024-07-26 16:46 | XMS_ITS | Data Portability ---
Author Organization [facility] Address [address] [place] [address] [place] [address] Care Team Providers Care Signals Intelligence Superintendent Name Role Phone SHIN NGUYEN Primary Care Provider [phone] Assessment Encounter Date Assessment Date Assessment LastModified by Organization Details LastModified Time 12/03/2021 12/03/2021 path- EZEKIEL 3 with clear margins FU 3-4 weeks for exam. continue pelvic rest until then FU 4 mos repap [email or web address] Not available 12/03/2021 17:04:51 12/23/2021 12/23/2021 normal activity repap end mar margins were clear Not available 12/23/2021 16:29:57 Plan of Treatment Reminders Order Date Submit Date Provider Last Modified By Organization Details Last Modified Time Details Appointments None recorded. Lab test, urine 2022 023 [email or web address] [facility], [address], [place], [address], 3 14:23:23 Referral None recorded. Procedures None recorded. Surgeries None recorded. Imaging US, obstetric, transvagina l 2022 [address] [facility], [address], [place], [address], 3 11:37:16 Medication Orders None recorded. Patient TargetsNo targets recorded. Patient InstructionsNo instructions recorded. Reason for Referral None Reported. Results Created Date Observation Date Name Description Value Unit Range Abnormal Flag Note LastModifiedBy Organization Detail LastModifiedTime 11/29/19 22 11/28/2021 CT/GC AND TRICH OMONA S VAGIN ALBER (RRNA ), SWAB chlamydia trachomatis, PCR Negati ve negati ve Not Available [facility] [address] [place], [address], 12/01/2021 15:55:28 11/29/19 22 11/28/2021 CT/GC AND TRICH OMONA S VAGIN ALBER (RRNA ), SWAB neisseria gonorrhoeae, PCR Negati ve negati ve Not Available [facility] [address] [place], [address], 12/01/2021 15:55:28 11/29/19 22 11/28/2021 CT/GC AND TRICH OMONA S VAGIN ALBER (RRNA ), SWAB trichomonas vaginalis ribosomal RNA (rrna) Negati ve negati ve Not Available [facility] [address] [place] [address], [address], 12/01/2021 15:55:28 11/29/19 22 11/28/2021 SURGI BASIL [...] wed with stefanie murillo of the [facility] who agree s with the above inter preta tion. CLINI BASIL INFOR MATIO N: z11.3 MICRO SCOPI C DESCR IPTIO N: A micro scopi c exami natio n was perfo rmed. GROSS DESCR IPTIO N: A. Cervi x. The speci men is recei kathy in forma shala label ed with the patie nt's name, clementeramos ventura, and LEEP cervi x. It consi sts of a lopez-b rown, parti ally fragm ented cervi basil LEEP measu ring 2.9 x 1.3 x 0.5 cm. The propo sed endoc ervic al resec tion jna n is inked yello w and the [...] Gross ed by Lebron Powers Not Available [facility] [address] [place], [address], 12/01/2021 15:55:29 11/29/19 22 11/28/2021 pregn xiao test, urine HCG negati ve Not Available [facility] [address], [place], [address], 11/28/2021 15:45:10 03/02/19 23 03/02/2022 pregn xiao test, urine HCG positi ve Not Available [facility] [address], [place], [address], 03/02/2022 14:22:50 05/08/19 23 05/07/2022 IMAGE GUIDE D PAP AND HPV REGAR DLESS image guided Pap, HPV regardless of Pap result SEE RESULT S BELOW CASE REPOR T: Cytol ogy Gynec ologi basil Repor t Case: [id number] Autho gilbert cabral Provi heath: Romain Verdugo Colle cted: 05/07 1717 POCKETED [employer] Order ing Locat ion: [place] Patho logy [...] basil Findi ngs: Other Histo ry: Hormo jacboo (if appli cable ): PAP EDUCA SONY [...] d, as nasir lee nted. Not Available [facility] (Lab) [address], [place], [address], 05/12/2022 15:59:29 02/08/19 23 02/07/2022 US, obste tric, follo w-up No observ ation record ed. [email or web address] [facility] [address], [place], [address], 02/12/2022 13:20:00 02/11/19 23 02/11/2022 US, obste tric, trans vagin al No observ ation record ed. [email or web address] [facility] [address], [place], [address], 02/11/2022 16:56:38 02/11/19 23 02/11/2022 US, obste tric, trans vagin al No observ ation record ed. ALLIE Marley [address], [place], [address], 02/26/2022 09:02:08 Result Notes None recorded. Problems Name Problem SNOMED Code Status Onset Date Resolution Date Notes Provider Name and Address Organization Details Recorded Time Pregnanc y 38069031 Completed 201901/22/2020 Constance viera, [facility] 0 12:22:10 Smoker 36250554 Completed Brina viera, [facility] 3 13:06:22 Itching 767182685 Completed feet - labs WNL Brina viera, [facility] 3 13:06:22 Large for gestatio n age fetus 115732373 Completed US Brina viera, [facility] 3 13:06:22 Cervical intraepi thelial neoplasi a grade III with severe dysplasi a 021655548 Active 2021 Sarah Yee MD [address], [place], [address], [facility] 2 19:59:51 History of loop electros urgical excision procedur e 34963474972 102 Active 2021 Sarah Yee MD [address], [place], [address], [facility] 17:05:02 Problem Notes None recorded. Procedures Surgical History Date Name Laterality Status Provider Name and Address Organization Details Recorded Time 11/29/19 22 LEEP completed Sarah Yee MD [address], [place], [address], [facility] 11/28/2021 16:18:12 11/29/19 22 LEEP completed Esther Fabian [facility] 11/28/2021 15:34:02 09/27/19 22 Colposcopy completed Sarah Yee MD [address], [place], [address], [facility] 09/26/2021 16:19:29 09/27/19 22 [facility] 03/02/2022 13:08:53 09/27/19 22 [facility] 03/02/2022 13:09:40 08/26/19 22 Date of Last Pap Smear completed [facility] 03/02/2022 13:00:29 02/08/19 07 extraction of wisdom tooth completed Brinasamreen Christiansen [facility] 06/07/2019 16:41:17 02/08/18 89 Unlisted px lacrimal system completed [facility] 06/07/2019 16:41:06 Imaging Results None recorded. Procedure Notes None recorded. Medical Equipment None Reported. Allergies Allergen ID Allergen Name Allergen Category Reaction Reaction Severity Criticality Documentation Date Start Date Code Code System Note Provider Name and Address Organization Details Recorded Time 395 Substance with sulfonami de structure and antibacte rial mechanism of action (substanc e) medicatio n Not available Not available Not available 06/07/2019 16878 8003 SNOMED Brina Christiansen [facility] 0 10:34:02 Medications Name Sig Start [...] completed Not Available Not Available Not Available [place] 10 mg-325 mg tablet Take 1 tablet [...] Updated DateTime 03/02/2022 158.75 cm 35.3 kg/m2 57155.1 g 120 mm[Hg] 85 mm[Hg] Brina Christiansen [facility] 3 14:12:56 Date Recorded Body height Body mass index (BMI) Body weight Systolic blood pressure Diastolic blood pressure Provider Name and Address Organization Details Last Updated DateTime 05/07/2022 158.75 cm 11.3 kg/m2 04059.32 g 122 mm[Hg] 82 mm[Hg] [facility] 3 16:44:30 Date Recorded Body height Body mass index (BMI) Body weight Systolic blood pressure Diastolic blood pressure Provider Name and Address Organization Details Last Updated DateTime 12/03/2021 158.75 cm 36 kg/m2 28927.47 g 121 mm[Hg] 83 mm[Hg] [facility] 2 16:31:59 Date Recorded Body height Body mass index (BMI) Body weight Systolic blood pressure Diastolic blood pressure Provider Name and Address Organization Details Last Updated DateTime 12/23/2021 158.75 cm 35.8 kg/m2 65380.88 g 125 mm[Hg] 85 mm[Hg] [facility] 2 16:20:54 Social History Question Answer Notes LastModified by Organizat ion Details LastModified Time Tobacco Smoking Status Current Every Day Smoker Brina Christiansen [facility] 06/07/2019 16:39:53 If You Are , What Was Your Level Of Alcohol Consumption Prior To ? Occasional Information not available 06/07/2019 Are You Blind Or Do You Have Difficulty Seeing? No [email or web address] Information not available 03/02/2022 Are You Deaf Or Do You Have Serious Difficulty Hearing? No [email or web address] Information not available 03/02/2022 Which Illicit Or Recreational Drugs Have You Used? Yes Chloride Information not available 06/07/2019 Illicit Drugs Pre- Yes [email or web address] Information not available 06/07/2019 What Was The Date Of Your Most Recent Tobacco Screening? 03/02/2022 [email or web address] Information not available 03/02/2022 How Much Tobacco Do You Smoke? 1 PPD [email or web address] Information not available 07/15/2020 Smoking Pre- Yes [email or web address] Information not available 06/07/2019 Do You Have Difficulty Walking Or Climbing Stairs? No [email or web address] Information not available 03/02/2022 Sex: Unknown Functional Status Question Answer Note LastModified by Organizat ion Details LastModified Time What is your level of alcohol consumption? Moderate [email or web address] Information not available 06/07/2019 Do you or have you ever used smokeless tobacco? Never used smokeless tobacco [email or web address] Information not available 10/12/2019 Are you able to walk? YESWOREST [email or web address] Information not available 03/02/2022 Are you able to care for yourself? Yes [email or web address] Information not available 03/02/2022 Do you have difficulty dressing or bathing? No [email or web address] Information not available 03/02/2022 Do you or have you ever used e-cigarettes or vape? Never used electronic cigarettes [email or web address] Information not available 10/12/2019 What is your exercise level? Occasional [email or web address] Information not available 06/07/2019 Mental Status None recorded. Family History Relationship Description Onset Age of this Age Resolved Age Notes LastModified by Organization Details LastModified Time Father Hypercholest erolemia [email or web address] Not available 06/06 16:38:07 Mother Hyperglycemi a [email or web address] Not available 06/06 16:38:29 Paternal Grandmother Malignant tumor of colon [email or web address] Not available 06/06 16:38:49 Sister Female infertility [email or web address] Not available 16:39:12 Sister Cyst of ovary Not available 06/06 16:39:31 Maternal Grandfather Malignant neoplasm of skin 60 [email or web address] Not available 2020 14:53:36 Medical History Condition Response Allergies (Food, seasonal, environmental ) N Other Y Blood Transfusion N Drug/Latex Allergies/Reactions N Breast Cancer N Dermatologic Disorders N Lung Disease N [...] Diagnosis Note 2456 Maria Del Carmen Wilson CNM [facility] [address] [address] 06/07/2019 09:31:49 06/07/2019 11:05:22 Amenorrhea 06029343 N91.2 Irregular periods 655920 07 N92.6 2486 Puma Lyn MD [facility] [address] [address] 06/07/2019 11:11:33 06/07/2019 13:09:12 screening 399733466 Z36.87 5757 Maria Del Carmen Wilson CNM [facility] [address],[place] [address] 07/07/2019 09:33:40 07/07/2019 12:11:17 Bacterial vaginosis 998575960 N76.0 6700 MD Jazzy Lundberg [address],[place] [address] 07/14/2019 10:26:59 07/23/2019 15:35:29 6701 MD Jazzy Lundberg [address],[place] [address] 07/14/2019 10:28:43 07/21/2019 13:32:44 Routine care 747491753 Z34.81 7565 MD Jazzy Lundberg [address],[place] [address] 07/20/2019 12:19:56 07/20/2019 13:18:06 screening 454409391 Z36.82 Z36.0 15885 MD Jazzy Lundberg [address],[place] [address] 08/10/2019 10:20:59 06/11/2020 17:38:24 96268 MD Jazzy Lundberg [address],[place] [address] 08/18/2019 12:14:50 08/18/2019 13:01:59 Routine care 689930554 Z34.81 21118 [facility] [address],[place] [address] 09/14/2019 11:57:02 09/14/2019 12:31:52 Routine care 134939357 Z34.92 64132 Puma Lyn MD [facility] [address],[place] [address] 09/15/2019 11:51:32 09/15/2019 13:37:26 screening for malformation 865536064 Z36.3 26544 [facility] [address],[place] [address] 10/12/2019 10:21:26 10/12/2019 11:36:31 Routine care 432602437 Z34.92 47570 Puma Lyn MD [facility] [address],[place] [address] 11/13/2019 11:29:14 11/13/2019 11:55:19 Large for gestation age fetus 292677148 O35.8XX9 58394 [facility] [address],[place] [address] 11/29/2019 11:39:48 11/30/2019 11:54:04 97257 Puma Lyn MD [facility] [address],[place] [address] 11/29/2019 11:40:23 11/29/2019 12:36:38 Gravid uterus [id number]-ipt-pgvfl 390791934 O26.843 Z3A.31 37962 Shanti Rivera [facility] [address],[place] [address] 12/14/2019 17:10:22 12/18/2019 16:10:19 Routine care 374209536 Z34.92 54735 Puma Lyn MD [facility] [address],[place] [address] 12/21/2019 14:51:04 12/21/2019 15:48:18 Uterine size for dates discrepancy 188363060 O26.843 Z3A.34 70951 Shanti Rivera [facility] [address],[place] [address] 01/22/2020 14:08:40 01/22/2020 15:01:09 state 28524710 Z39.2 Continue to watch for signs/symp toms [...] paper copy of today's [facility] 727124818 Z30.9 Pt would like to start p.o.p. Discussed importance of taking at the same time every day. Also informed that it may not be as effective as estrogen containing pills. 26557 Shanti Rivera CNM [facility] [address],[place] [address] 04/18/2020 10:47:47 04/18/2020 11:28:48 Surveillance of oral contraception 189094124 Z30.41 Discussed all control options in great [...] read and signed. Pt verbalized understand [place]. [address]703 Shanti Rivera CNM [facility] [address],[place] [address] 07/15/2020 14:34:57 07/15/2020 15:13:42 Gynecologic examination 62144734 Z01.419 Take Calcium with Vitamin D 1200mg [...] paper copy of today's plan if desired. [facility] management 838813455 Z30.9 Discussed all control options and pt would like mirena or kyleena IUD. I have discussed in detail all risks and benefits including risk of infection and perforatio n. Handouts given on both. She will check benefits and call us on the first day of her cycle to schedule placement. 14796 Sarah Yee MD [facility] [address],[place] [address] 08/25/2021 16:06:40 08/25/2021 16:52:21 Gynecologic examination 23826978 Z01.419 [id number] Sarah Yee MD [facility] [address],[place] [address] 09/26/2021 14:49:27 09/26/2021 16:21:17 Screening procedure 32227389 Z13.9 Atypical s quamous cells on cervical Papanicolaou smear cannot exclude high grade squamous intraepithelial lesion 796498560 R87.611 [id number] Sarah Yee MD [facility] [address],[place] [address] 11/03/2021 14:09:05 11/04/2021 15:34:37 Cervical intraepithelial neoplasia grade III with severe dysplasia 393332255 D06.9 Preoperative state 18188 002 Z78.9 [id number] MD Caitie [place] [address],[place] [address] 11/28/2021 15:20:33 11/28/2021 16:31:12 Screening procedure 55744835 Z13.9 Cervical intraepithelial neoplasia grade III with severe dysplasia 635117571 D06.9 [id number] Sarah Yee MD [facility] [address],[place] [address] 12/03/2021 16:23:08 12/03/2021 17:08:29 Cervical intraepithelial neoplasia grade III with severe dysplasia 054706199 D06.9 History of loop electrosurgical excision procedure 5916869999 9102 Z98.890 [id number] Sarah Yee MD [facility] [address],[place] [address] 12/23/2021 16:14:45 12/23/2021 17:40:19 History of loop electrosurgical excision procedure 8069183054 9102 Z98.890 Cervical intraepithelial neoplasia grade III with severe dysplasia 619141930 D06.9 [id number] Sarah Yee MD [facility] [address],[place] [address] 02/11/2022 16:00:09 02/11/2022 18:40:41 Spotting per vagina in 366638809 O26.859 Z3A.09 [id number] Shanti Rivera [facility] [address],[place] [address] 03/02/2022 13:56:53 03/02/2022 14:44:20 Missed miscarriage 71142130 O02.1 Elective t ermination of 42947190 Z33.2 Pt here post eab. Doing well [...] decision on contracept ion. Leaning [facility]. 421064 [facility] [address],[place] [address] 05/07/2022 16:37:34 05/08/2022 16:10:17 Abnormal cervical Papanicolaou smear 004442002 R87.619 Pap sample sentWill forward to Dr. [...] Recorded Advance Directives Directive None Recorded Payers Insurance Date Sequence Insurance Name Policy Number Policy Willoughby Covered Member ID Willoughby Member ID Guarantor Name 12/20/2023 1 [facility] [id number] Siri Nix [id number] Siri Nix 12/23/2021 1 [employer] - [employer] (PPO) Siri Nix [id number] Siri Nix 12/23/2021 1 [employer] (PPO) Siri Nix [id number] Siri Nix 12/23/2021 1 [employer] - [employer] (PPO) Siri Nix [id number] Siri Nix 12/23/2021 1 [employer] - [employer] (PPO) Siri Nix [id number] Siri Nix 10/02/2023 1 [facility] Siri Nix [id number] Siri Nix Notes Date Note Type Note Provider Name and Address Organization Details Recorded Time 12/03/2021 text/html leep 5 d ago. Bryant d eaasy recovery. no cramping, only spotting,. no fever. Sarah Yee MD [address], [place], [address], [facility] 12/03/2021 17:05:14 12/23/2021 text/html LEEP 11/28. amy chávez, no concerns. Sarah Yee MD [address], [place], [address], [facility] 12/23/2021 16:31:38 03/02/2022 text/html Termination on 02-13. Bleeding has subsided. No pain, fever or flu like symptoms. Pt feeling very good. Shanti viera, [facility] 03/02/2022 14:32:33 05/07/2022 text/html Here today for r /p yearly Pap/HPV testingColpo 2021 HGSILPap/hpv 2021 ASCUS/+HR HPV/+HPV#16 Kimberly Rojas, [facility]- [address], [place], [address], [facility] 05/08/2022 14:01:07 OBGyn Episode Ob Episode Information Episode Created Date Number of Fetuses Patient Bloodtype Patient rh Status Prepregnancy Weight lbs Domestic Partner Domestic Partner Phone Father Name Drum Printer Status 06/07/19 20 1 CLOSED Fetus Data [...] Post Complications Tubal Sterilization Discharge Date Comments 2017 miscarria ge Discharge Information Feeding Method Contraceptive Method Maternal HG B and HCT Levels Ob Episode Information Episode Created Date Number of Fetuses Patient Bloodtype Patient rh Status Prepregnancy Weight lbs Domestic Partner Domestic Partner Phone Father Name Drum Printer Status 07/14/19 20 1 O Positive 191 CLOSED Fetus Data First Name Last Name Admitted to NICU Weight (g) Sex Living Outcome Pediatric Complications Fetus ID Race Codes Race Delivery Type 2636.50 35 M Prematur e 2010 Vaginal Delivery Problems Problem Notes Problem Name Start Date End Date Resolution Snomed Code Not e Smoker 43499013 Large for gestation age fetus 992727174 [place] Itching 500177410 feet - lab s WNL Joseph Calculation [...] Weight in lbs Pre/Post Dialysis Refused Weight 191.980438622218 BP Diastolic BP Location Tested BP Systolic [...] Weight in lbs Pre/Post Dialysis Refused Weight 196.699091733355 BP Diastolic BP Location Tested BP Systolic BP Type 79 115 Fetus Heart Rate Present A 145 Fetus Movement A No Comments Flowsheet Date 09/14/2019 Bliss Score Blood Edema Fundus Height Fundus Units Glucose Ketones Leukocytes Nitrite Labor Signs Protein Cervic Dilation Cervic Effacement Cervic Station 24 Type Weight in lbs Pre/Post Dialysis Refused Weight 203.13679480897 BP Diastolic BP Location Tested BP Systolic [...] Weight in lbs Pre/Post Dialysis Refused Weight 209.022956872148 BP Diastolic BP Location Tested BP Systolic [...] Weight in lbs Pre/Post Dialysis Refused Weight 215.269414895803 BP Diastolic BP Location Tested BP Systolic [...] Weight in lbs Pre/Post Dialysis Refused Weight 216.306156827522 BP Diastolic BP Location Tested BP Systolic [...] Weight in lbs Pre/Post Dialysis Refused Weight 221.191346750394 BP Diastolic BP Location Tested BP Systolic [...] Estim ated Date of Delivery false Thalassemia (Bahamian, British, Mediterranean, Or Background): MCV < 80 false Neural Tube Defect (Meningomyelocele, Spina Bifi da, Or Anencephaly) false Congenital Heart Defect false Down Syndrome false Esa-Sachs (eg, Temple, Cajun, Chinese-Maltese) f alse Compa Disease false Sickle Cell Disease Or Trait () false Hemophilia Or Other Blood Disorders false Muscular Dystrophy false Cystic Fibrosis false [place] Chorea false Intellectual Disability/Autism false If Yes, [...] Date Comments 0 None 35.2 Shanti Rivera [facility] labor and delivery Discharge Information Feeding Method Contraceptive Method Maternal HG B and HCT Levels Ob Episode Information Episode Created Date Number of Fetuses Patient Bloodtype Patient rh Status Prepregnancy Weight lbs Domestic Partner Domestic Partner Phone Father Name Drum Printer Status 01/03/20 1 DELETED Joseph Calculation Initial [...] Domestic Partner Domestic Partner Phone Father Name Drum Printer Status 03/02/19 23 1 CLOSED Fetus Data First Name Last Name Admitted to NICU Weight (g) Sex Living Outcome Pediatric Complications Fetus ID Race Codes Race Delivery Type , Spontane ous [id number] Joseph Calculation Initial Joseph Date Initial Exam [...]
--- OUTSIDE RECORDS SUMMARY | 2024-07-26 16:46 | XMS_ITS | Clinical Summary ---
Author Organization [facility] [employer] Address [address] [place] [address] Care Team Providers Care Dianeticist Name Role Phone Unavailable Primary Care Provider Unavailabl e Source Comments [facility] [employer],non-owned Affiliates and Associated Physician Practices is amultiple site organization consisting of ambulatory clinics and hospital sitesin [place], [place], [place]. This disclosure is being madepursuant to the Care Everywhere program and may not contain all information available regarding this patient. 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58 12/16/2018 9:15 AM POWDER LINE REPAIRER Plan of Treatment Health Maintenance Due Date Last Done Comments HIV SCREENING 09/16/2002 HEPATITIS C SCREENING 09/12/2005 DTAP/TDAP/TD VACCINES (1 - Tdap) 09/16/2006 HEPATITIS B VACCINE (1 of 3 - 19+ 3-dose series) 09/16/2006 COVID-19 VACCINE (1 - 2023-2 5 season) 2023 DEPRESSION SCREENING [...] patient's age to complete this topic Insurance [facility]
[2024-07-28 14:24] LABS: Thyroid Peroxidase Antibodies. >900 IU/mL (<9)
== END 2024-07-26 14:53 | disposition home or self-care (01) ==
LOC: ANHLAB 14:53
PROVIDERS: PCP Family Medicine; Visit Provider Nurse Practitioner Family
DX: R79.89 Other specified abnormal findings of blood chemistry (principal)
CPT/HCPCS: 36415; 84439; 84443; 86376